=== PATIENT | male | born 1970 | race Caucasian/White ===

== ENCOUNTER 2019-10-27 01:03 | Inpatient (IN) | payer SELFPAY ==
[2019-10-27] VITALS (17 sets, daily range): BP systolic 92–132; BP diastolic 49–90; PULSE 57–68; RESP 18–27; TEMP 36.3–36.9; O2SAT 86–98; BMI 34.0
--- NOTE | 2019-10-27 01:29 | W.ED.ABDPA2 ---
Documented by User: TAMRA Miles 10/27/19 03:15 HPI - Abdominal Pain General: Chief Complaint: Abdominal Pain Stated Complaint: abd pain Time Seen by Provider: 10/27/19 01:13 History of Present Illness: HPI narrative: Patient is a 49-year-old male who comes to the ED with abdominal pain, nausea, vomiting, diarrhea and shortness of breath. Patient has a past medical history of hypertension. Patient says symptoms started about a week ago. He was having some shortness of breath and says he went to his PCP to get evaluated and they tested him for influenza and COVID and both were negative. Patient says he still has some shortness of breath and productive cough with white/clear sputum. He describes the abdominal pain as an aching pain that gets worse when he does any movement. The location of the abdominal pain is in the left lower quadrant. He rates the pain about an 8 out of 10 when he is moving but when he is just laying pain is very minimal. He said he has had severe nausea and vomiting over the past 24 hours. Diarrhea has been going on for almost a week. Denies any blood in the stool. Denies dysuria, hematuria, chest pain, or other upper respiratory symptoms. Associated Symptoms: Reports diarrhea, fever(s), nausea and vomiting; Denies chills, constipation, dysuria, hematochezia and hematuria Review of Systems Const: Reports: fever(s); Denies: chills or fatigue Eyes: Denies: change in vision or eye discomfort ENMT: Denies: throat pain, odynophagia, nasal discharge or nasal congestion Card: Denies: chest pain, palpitations, edema, swelling of feet/ankles, dyspnea on exertion or orthopnea Resp: Reports: dyspnea and productive cough (white and clear) GI: Reports: abdominal pain, nausea, vomiting and diarrhea; Denies: constipation or hematochezia : Denies: flank pain, difficulty urinating, dysuria or hematuria Musc: Denies: neck pain, back pain or extremity swelling Skin/Breast: Denies: rash or new lesions Neuro: Denies: headache(s), numbness in extremities or weakness in extremities PFS ED PFSH: Social History Smoking and tobacco status: never smoked Physical Exam Const: COMMON NORMALS: patient oriented x3 and alert GENERAL APPEARANCE: cooperative and ill appearing HENMT: COMMON NORMALS: normocephalic HEAD & SCALP: normocephalic MOUTH: Normal oral and palatal mucosa present THROAT: posterior oropharynx normal and uvula midline Eye: COMMON NORMALS: Equal, round and reactive pupils present PUPIL: Yes Equal, round and reactive pupils present Neck/C-Spine: COMMON NORMALS: supple GENERAL: Yes normal visual inspection Resp: COMMON NORMALS: normal respiratory effort, No retractions and No use of accessory muscles EFFORT & INSPECTION: No able to speak in complete sentences (Patient had to take breaks when speaking to catch his breath.), Yes labored and Yes Actively coughing AUSCULTATION: crackles Laterality: right and left and wheezes scattered wheezes Cardio: COMMON NORMALS: regular rate, regular rhythm, S1 normal heart sound present, S2 normal heart sound present, No gallops present (Cardio), No clicks present (Cardio), No murmurs present (Cardio) and Peripheral pulses 2+ throughout RATE: regular rate RHYTHM: regular rhythm HEART SOUNDS: S1 normal heart sound present and S2 normal heart sound present PERIPHERAL PULSES: Peripheral pulses 2+ throughout GI: COMMON NORMALS: Normal to inspection, nondistended, normoactive bowel sounds present, Soft to palpation and no masses PALPATION: Yes Soft to palpation and Yes Tenderness to palpation present (GI) Details: LLQ (mild tenderness) : COMMON NORMALS: Yes no CVA tenderness BLADDER/KIDNEY EXAM: Yes no CVA tenderness Back/Pelvis: COMMON NORMALS: no CVA tenderness Extremity: COMMON NORMALS: normal to inspection and no pedal edema Neuro: COMMON NORMALS: patient oriented x3 SENSORIUM/ORIENTATION: Yes alert GAIT: Yes Normal gait present Skin: COMMON NORMALS: no rashes or lesions noted GENERAL SKIN EXAM: no rashes or lesions noted and dry skin Course Vital Signs: Vital signs: Vital Signs Temperature 98.0 F 10/27/19 01:05 Pulse Rate 61 10/27/19 03:37 Respiratory Rate 18 10/27/19 04:58 Blood Pressure 115/68 10/27/19 04:58 Pulse Oximetry 91 10/27/19 04:58 MDM - Abdominal Pain MDM Narrative: Medical decision making narrative: I discussed patient's case with Dr. Vogel and he will be taking over patient care and admission of patient. Lab Data: Attestation: I reviewed the patient's lab results. Labs: Lab Results 10/27/19 10/27/19 10/27/19 Range/Units 01:26 01:26 02:20 WBC 11.8 H (4.0-10.0) 10^3/ uL RBC 5.06 (4.1-5.3) 10^6/u L Hgb 15.3 (11.7-16.6) g/dL Hct 43.4 (42.0-52.0) % MCV 85.8 (80-94) fL MCH 30.2 (28.0-34.0) pg MCHC 35.3 (30.0-36.0) g/dL RDW 12.6 (12.1-15.1) % Plt Count 213 (130-400) 10^3/c mm MPV 11.9 H (7.4-10.4) fL Neut % (Auto) 82.8 % Lymph % (Auto) 8.5 % Barton % (Auto) 7.3 % Eos % (Auto) 0.1 % Baso % (Auto) 0.3 % Neut # (Auto) 9.8 H (1.8-7.7) 10^3/u L Lymph # (Auto) 1.0 (0.8-4.8) 10^3/u L Barton # (Auto) 0.9 (0.2-0.9) 10^3/u L Eos # (Auto) 0.0 (0.0-0.8) 10^3/u L Baso # (Auto) 0.0 (0.0-0.1) 10^3/u L Nucleated RBC % (a uto) 0 % Nucleated RBCs # 0.0 /100WBC Sodium 120 L (136-145) mmol/L Potassium 2.9 L (3.5-5.1) mmol/L Chloride 87 L (98-107) mmol/L Carbon Dioxide 15 L (22-29) mmol/L Anion Gap 20.9 H (5-19) BUN 89 H* (6-20) mg/dL Creatinine 4.7 H (0.7-1.2) mg/dL GFR Calculation 13.4 L (90-130) mL/min Glucose 359 H (65-115) mg/dL Calculated Osmolal ity 265 L (285-295) mOsm/k g Calcium 8.8 (8.5-10.5) mg/dL Total Bilirubin 0.5 (0.15-1.2) mg/dL AST 202 H (0-40) U/L ALT 184 H (0-41) U/L Alkaline Phosphata se 37 L (40-130) IU/L Total Protein 6.2 L (6.6-8.7) g/dL Albumin 2.6 L (3.5-5.2) g/dL Globulin 3.6 (1.3-4.6) g/dL Lipase 41 (13-60) U/L Urine Color Yellow (Yellow) Urine Appearance Sl hazy (CLEAR) Urine pH 5 (5-7) Ur Specific Gravit y 1.020 (1.005-1.030) Urine Protein Neg (Negative) Urine Glucose (UA) 1+ (Normal) Urine Ketones Negative (Negative) Urine Blood 3+ H (Negative) Urine Nitrate Negative (Negative) Urine Bilirubin Neg (NEGATIVE) Urine Urobilinogen Norm (Negative) mg/dL Ur Leukocyte Meg ase Negative (Negative) Urine RBC 0-4 H (0-2) /hpf Urine WBC 5-10 H (0-5) /hpf Ur Squamous Epith Cells 0-4 H (0-5) Urine Bacteria 1+ H (NONE) Imaging Data ^: CXR: Attestation: I personally reviewed and interpreted this imaging study as follows: My impression: Left lobe pneumonia and infiltrates seen. Pending final radiology report. Discharge Plan Discharge Prescriptions: No Action lisinopril 10 mg Tablet 10 mg PO BID RF: 0 Coding Level of Care Code ED Metaphysician for [facility] Fwd Exam Comprehensive Documented by User: Frida Vogel MD 10/27/19 05:04 HPI - Abdominal Pain General: Chief Complaint: Abdominal Pain Stated Complaint: abd pain Time Seen by Provider: 10/27/19 01:13 PFSH ED PFSH: Social History Smoking and tobacco status: never smoked Course Vital Signs: Vital signs: Vital Signs Temperature 98.0 F 10/27/19 01:05 Pulse Rate 61 10/27/19 03:37 Respiratory Rate 18 10/27/19 04:58 Blood Pressure 115/68 10/27/19 04:58 Pulse Oximetry 91 10/27/19 04:58 MDM - Abdominal Pain MDM Narrative: Medical decision making narrative: Patient presents here with multilobar pneumonia along with hyponatremia and acute kidney injury. Patient given IV hydration here and started on IV antibiotics. Patient is requiring oxygen here and pneumonia is quite extensive on CT. I spoke to hospitalist and will admit. Patient has no signs of septic shock and blood pressures have been normal here. Lab Data: Labs: Lab Results 10/27/19 10/27/19 10/27/19 Range/Units 01:26 01:26 02:20 WBC 11.8 H (4.0-10.0) 10^3/ uL RBC 5.06 (4.1-5.3) 10^6/u L Hgb 15.3 (11.7-16.6) g/dL Hct 43.4 (42.0-52.0) % MCV 85.8 (80-94) fL MCH 30.2 (28.0-34.0) pg MCHC 35.3 (30.0-36.0) g/dL RDW 12.6 (12.1-15.1) % Plt Count 213 (130-400) 10^3/c mm MPV 11.9 H (7.4-10.4) fL Neut % (Auto) 82.8 % Lymph % (Auto) 8.5 % Barton % (Auto) 7.3 % Eos % (Auto) 0.1 % Baso % (Auto) 0.3 % Neut # (Auto) 9.8 H (1.8-7.7) 10^3/u L Lymph # (Auto) 1.0 (0.8-4.8) 10^3/u L Barton # (Auto) 0.9 (0.2-0.9) 10^3/u L Eos # (Auto) 0.0 (0.0-0.8) 10^3/u L Baso # (Auto) 0.0 (0.0-0.1) 10^3/u L Nucleated RBC % (a uto) 0 % Nucleated RBCs # 0.0 /100WBC Sodium 120 L (136-145) mmol/L Potassium 2.9 L (3.5-5.1) mmol/L Chloride 87 L (98-107) mmol/L Carbon Dioxide 15 L (22-29) mmol/L Anion Gap 20.9 H (5-19) BUN 89 H* (6-20) mg/dL Creatinine 4.7 H (0.7-1.2) mg/dL GFR Calculation 13.4 L (90-130) mL/min Glucose 359 H (65-115) mg/dL Calculated Osmolal ity 265 L (285-295) mOsm/k g Calcium 8.8 (8.5-10.5) mg/dL Total Bilirubin 0.5 (0.15-1.2) mg/dL AST 202 H (0-40) U/L ALT 184 H (0-41) U/L Alkaline Phosphata se 37 L (40-130) IU/L Total Protein 6.2 L (6.6-8.7) g/dL Albumin 2.6 L (3.5-5.2) g/dL Globulin 3.6 (1.3-4.6) g/dL Lipase 41 (13-60) U/L Urine Color Yellow (Yellow) Urine Appearance Sl hazy (CLEAR) Urine pH 5 (5-7) Ur Specific Gravit y 1.020 (1.005-1.030) Urine Protein Neg (Negative) Urine Glucose (UA) 1+ (Normal) Urine Ketones Negative (Negative) Urine Blood 3+ H (Negative) Urine Nitrate Negative (Negative) Urine Bilirubin Neg (NEGATIVE) Urine Urobilinogen Norm (Negative) mg/dL Ur Leukocyte Meg ase Negative (Negative) Urine RBC 0-4 H (0-2) /hpf Urine WBC 5-10 H (0-5) /hpf Ur Squamous Epith Cells 0-4 H (0-5) Urine Bacteria 1+ H (NONE) Imaging Data ^: CT Chest: Radiologist's impression: [address] [address] [address] Scan Report Signed Patient: Osman Muir Unit #: [id number] : 1970 [facility]#:[id number] Age/Sex: 49 / M ADM Date: 10/27/19 Loc: ER Room/Bed: Attending Dr: Ordering Provider/Ordering MD: Frida Vogel MD Date of Service: 10/27/19 Procedure(s): CT chest abd pel wo con Accession Number(s): [id number] Report Number: [id number] PROCEDURE INFORMATION: Exam: CT Chest Without Contrast Exam date and time: 10/27/2019 2:35 AM Age: 49 years old Clinical indication: Abdominal tenderness; Abdominal pain; Generalized; Cough and shortness of breath; Chest pain; Type not specified; Prior surgery; Surgery type: Stents; Additional info: Pneumonia TECHNIQUE: Imaging protocol: Computed tomography of the chest without contrast. Radiation optimization: All CT scans at this facility use at least one of these dose optimization techniques: automated exposure control; mA and/or kV adjustment per patient size (includes targeted exams where dose is matched to clinical indication); or iterative reconstruction. COMPARISON: No relevant prior studies available. RADIATION DOSE METRICS: Total DLP: 2598.83 mGy-cm FINDINGS: Lungs: There is extensive consolidation and confluent areas of geographic ground-glass opacity in the upper and lower lobes bilaterally. Pleural space: There is no pleural effusion or pneumothorax. Heart: There is mild cardiac enlargement. Coronary calcification and stents noted. There is no pericardial effusion. Aorta: There is mild aortic atherosclerotic disease. Lymph nodes: There is no mediastinal or hilar lymphadenopathy. Bones/joints: Bones are unremarkable. Soft tissues: The extrathoracic soft tissues are unremarkable. IMPRESSION: 1. Bilateral multilobar pneumonia. 2. Cardiac enlargement. PROCEDURE INFORMATION: Exam: CT Abdomen And Pelvis Without Contrast Exam date and time: 10/27/2019 2:35 AM Age: 49 years old Clinical indication: Abdominal tenderness; Abdominal pain; Generalized; Cough and shortness of breath; Chest pain; Type not specified; Prior surgery; Surgery type: Stents; Additional info: Pneumonia TECHNIQUE: Imaging protocol: Computed tomography of the abdomen and pelvis without contrast. Radiation optimization: All CT scans at this facility use at least one of these dose optimization techniques: automated exposure control; mA and/or kV adjustment per patient size (includes targeted exams where dose is matched to clinical indication); or iterative reconstruction. COMPARISON: No relevant prior studies available. RADIATION DOSE METRICS: Total DLP: 2598.83 mGy-cm FINDINGS: Liver: The liver is normal. Gallbladder and bile ducts: The gallbladder is normal. There is no biliary dilation. Pancreas: The pancreas is unremarkable. Spleen: The spleen is mildly enlarged. Adrenals: The adrenal glands are unremarkable. Kidneys and ureters: The kidneys are unremarkable. No hydronephrosis or stones. No ureteral dilation. Stomach and bowel: The stomach is decompressed, preventing meaningful evaluation of wall thickness. The small bowel is nondilated. There is no sign of inflammation. Colon is gas distended. The wall is thin. There is no sign of inflammation. Appendix: The appendix is normal. Intraperitoneal space: There is no free air or significant intraperitoneal free fluid. Vasculature: There is moderate aortic atherosclerotic disease. Lymph nodes: There is no lymphadenopathy in the retroperitoneum, mesentery, pelvis or inguinal regions. Bladder: The urinary bladder is unremarkable. Reproductive: The prostate and seminal vesicles are unremarkable. Bones/joints: There is moderate degenerative disease in the lower lumbar spine. The pelvis and hips are intact. Soft tissues: The abdominal wall is intact. CT/CT chest abd pel wo con IMPRESSION: 1. No acute findings. 2. Incidental findings above. Discharge Plan Discharge Prescriptions: No Action lisinopril 10 mg Tablet 10 mg PO BID RF: 0 Coding Level of Care Code ED Metaphysician for [facility] Fwd Exam Comprehensive
--- NOTE | 2019-10-27 01:37 | XR_ITS ---
WS: [id number] XR chest 1V portable [id number] REASON FOR EXAM: O2 Sat low FINDINGS: Alveolar infiltrate is seen in the right upper lung and in the left lower lung. No evidence to suggest tuberculosis on this study. The right hemidiaphragm is elevated. The heart is enlarged. The hilum's apices are normal. XR/XR chest 1V portable [id number] IMPRESSION: Alveolar infiltrates in the right upper lung and left lower lung Cardiomegaly There is elevation of the right hemidiaphragm With the cross infiltrates consideration and rule out tuberculosis a skin test is recommended.
[2019-10-27 01:40] LABS: Basophils % 0.3 %; Eosinophils % 0.1 %; Hematocrit 43.4 % (42.0-52.0); Hemoglobin 15.3 g/dL (11.7-16.6); Lymphocytes % 8.5 %; Mean Corpuscular HGB Conc 35.3 g/dL (30.0-36.0); Mean Corpuscular Hemoglobin 30.2 pg (28.0-34.0); Mean Corpuscular Volume 85.8 fL (80-94); Mean Platelet Volume 11.9 fL (7.4-10.4); Monocytes # 0.9 10^3/uL (0.2-0.9); Monocytes % 7.3 %; Neutrophils # 9.8 10^3/uL (1.8-7.7); Neutrophils % 82.8 %; Nucleated Red Blood Cells % 0 %; Platelet Count 213 10^3/cmm (130-400); Red Blood Count 5.06 10^6/uL (4.1-5.3); Red Cell Distribution Width 12.6 % (12.1-15.1); White Blood Count 11.8 10^3/uL (4.0-10.0)
[2019-10-27] MEDS: sodium chloride 0.9% 1,000 ML 999 ML IV ×2 (01:43→03:11)
[2019-10-27] MEDS: ondansetron 2 mg/ML SDV 2 mL 4 MG IVP (01:44)
[2019-10-27 01:52] LABS: Alanine Aminotransferase 184 U/L (0-41); Albumin Level 2.6 g/dL (3.5-5.2); Alkaline Phosphatase 37 IU/L (40-130); Anion Gap 20.9 (5-19); Aspartate Amino Transferase 202 U/L (0-40); Calcium 8.8 mg/dL (8.5-10.5); Carbon Dioxide 15 mmol/L (22-29); Chloride 87 mmol/L (98-107); Globulin 3.6 g/dL (1.3-4.6); Glomerular Filtration Rate 13.4 mL/min (90-130); Glucose 359 mg/dL (65-115); Lipase 41 U/L (13-60); Osmolality Calculated 265 mOsm/kg (285-295); Sodium 120 mmol/L (136-145); Total Bilirubin 0.5 mg/dL (0.15-1.2); Total Protein 6.2 g/dL (6.6-8.7)
[2019-10-27 02:00] LABS: Blood Urea Nitrogen 89 mg/dL (6-20); Potassium 2.9 mmol/L (3.5-5.1)
--- NOTE | 2019-10-27 02:34 | CTR_ITS ---
PROCEDURE INFORMATION: Exam: CT Chest Without Contrast Exam date and time: 10/27/2019 2:35 AM Age: 49 years old Clinical indication: Abdominal tenderness; Abdominal pain; Generalized; Cough and shortness of breath; Chest pain; Type not specified; Prior surgery; Surgery type: Stents; Additional info: Pneumonia TECHNIQUE: Imaging protocol: Computed tomography of the chest without contrast. Radiation optimization: All CT scans at this facility use at least one of these dose optimization techniques: automated exposure control; mA and/or kV adjustment per patient size (includes targeted exams where dose is matched to clinical indication); or iterative reconstruction. COMPARISON: No relevant prior studies available. RADIATION DOSE METRICS: Total DLP: 2598.83 mGy-cm FINDINGS: Lungs: There is extensive consolidation and confluent areas of geographic ground-glass opacity in the upper and lower lobes bilaterally. Pleural space: There is no pleural effusion or pneumothorax. Heart: There is mild cardiac enlargement. Coronary calcification and stents noted. There is no pericardial effusion. Aorta: There is mild aortic atherosclerotic disease. Lymph nodes: There is no mediastinal or hilar lymphadenopathy. Bones/joints: Bones are unremarkable. Soft tissues: The extrathoracic soft tissues are unremarkable. IMPRESSION: 1. Bilateral multilobar pneumonia. 2. Cardiac enlargement. PROCEDURE INFORMATION: Exam: CT Abdomen And Pelvis Without Contrast Exam date and time: 10/27/2019 2:35 AM Age: 49 years old Clinical indication: Abdominal tenderness; Abdominal pain; Generalized; Cough and shortness of breath; Chest pain; Type not specified; Prior surgery; Surgery type: Stents; Additional info: Pneumonia TECHNIQUE: Imaging protocol: Computed tomography of the abdomen and pelvis without contrast. Radiation optimization: All CT scans at this facility use at least one of these dose optimization techniques: automated exposure control; mA and/or kV adjustment per patient size (includes targeted exams where dose is matched to clinical indication); or iterative reconstruction. COMPARISON: No relevant prior studies available. RADIATION DOSE METRICS: Total DLP: 2598.83 mGy-cm FINDINGS: Liver: The liver is normal. Gallbladder and bile ducts: The gallbladder is normal. There is no biliary dilation. Pancreas: The pancreas is unremarkable. Spleen: The spleen is mildly enlarged. Adrenals: The adrenal glands are unremarkable. Kidneys and ureters: The kidneys are unremarkable. No hydronephrosis or stones. No ureteral dilation. Stomach and bowel: The stomach is decompressed, preventing meaningful evaluation of wall thickness. The small bowel is nondilated. There is no sign of inflammation. Colon is gas distended. The wall is thin. There is no sign of inflammation. Appendix: The appendix is normal. Intraperitoneal space: There is no free air or significant intraperitoneal free fluid. Vasculature: There is moderate aortic atherosclerotic disease. Lymph nodes: There is no lymphadenopathy in the retroperitoneum, mesentery, pelvis or inguinal regions. Bladder: The urinary bladder is unremarkable. Reproductive: The prostate and seminal vesicles are unremarkable. Bones/joints: There is moderate degenerative disease in the lower lumbar spine. The pelvis and hips are intact. Soft tissues: The abdominal wall is intact. CT/CT chest abd pel wo con IMPRESSION: 1. No acute findings. 2. Incidental findings above. Radiation Dose CTDIVOL = (mGy): DLP = 2598.83~2598.83 (mGy-cm)
[2019-10-27] MEDS: azithromycin 500 MG in sodium chloride 0.9% 250 ML 250 MG IV (03:09)
[2019-10-27] MEDS: cefTRIAXone 1,000 MG in sodium chloride 0.9% (plus) 50 ML 100 MG IV (03:09)
[2019-10-27] MEDS: potassium chloride premix 40 MEQ/100 ML PREMIX 25 MEQ IV (03:39)
[2019-10-27 03:41] LABS: Urine Appearance SL Hazy (CLEAR); Urine Color Yellow (Yellow); pH Urine 5 (5-7)
[2019-10-27 03:42] LABS: Bacteria Urine 1+; Bilirubin Urine Neg (NEGATIVE); Blood Urine 3+ (Negative); Glucose Urine UA 1+ (Normal); Ketones Urine Negative (Negative); Leukocyte Esterase Urine Negative (Negative); Nitrate Urine Negative (Negative); Protein Urine Neg (Negative); RBC Urine 0-4 /hpf (0-2); Squamous Epithelial Cell Urine 0-4 (0-5); Urobilinogen Urine Norm (Negative)
--- NOTE | 2019-10-27 05:16 | PM.HP ---
Providers/Chief Complaint Primary Care Provider: Shae May DO Chief Complaint: abd pain History of Present Illness Osman Muir is a 49 year old male who carries history of established coronary disease (PCI x3), prediabetic, hypertensive came in with chief complaint of not feeling well. Patient is stating that for last 2 to 3 weeks he has been feeling very weak and lethargic, he was trying to avoid coming to the hospital but because of his worsening shortness of breath orthopnea and PND he decided to come to [facility] ER. He was seen at [place], patient is stating that he did not get any medical services there but was tested for COVID which was - negative 3 days ago. He has been having diarrhea for last 3 to 4 weeks, just diarrhea associated with nausea and vomiting, he has not been able to eat in last 2 to 3 days, he is experiencing more hoarseness of voice, when he took his temperature at home it was 100.4, he has been waking up drenched in his sweat in the morning, he is not sure about unintentional weight loss. He has quit smoking about 1 month ago. He denies history of CHF, alcohol intake or hepatitis. He is denying sick contacts, recent travel. Diagnostics in the ER revealed normal hemodynamics, he has been afebrile, saturating well on room air, COVID testing ordered Hyponatremia 120, hypokalemia 2.9, acute kidney injury creatinine 4.7 Abnormal transaminases, Low albumin Pyuria without UTI symptoms CT chest abdomen pelvis revealed bilateral infiltrates with groundglass opacities and cardiomegaly no lymphadenopathy, liver seems normal Review of Systems Const: Reports: fever(s), chills, body aches, change in appetite, fatigue, malaise, night sweats, diaphoresis and daytime sleepiness; Denies: change in weight Eyes: Denies: change in vision ENMT: Reports: throat pain Card: Reports: lightheadedness, dyspnea on exertion and orthopnea; Denies: chest pain, swelling of feet/ankles or pre-syncope Resp: Reports: dyspnea GI: Reports: abdominal pain, nausea, vomiting and diarrhea; Denies: constipation : Denies: flank pain or difficulty urinating Musc: Denies: neck pain Skin/Breast: Denies: rash Neuro: Denies: headache(s) Psych: Denies: anxiety Endo: Denies: polyuria Dharmesh/Lymph: Denies: easy bruising All/Imm: Denies: urticaria Medications/Allergies Home Medications Medication Instructions Recorded Confirmed Last Taken Type lisinopril 10 mg PO BID 10/27/19 10/27/19 10/26/19 History Allergies Allergy/AdvReac Type Severity Reaction Status Date / Time No Known Allergies Allergy Verified 10/27/19 01:12 PFSH Acute PFSH: Medical History (Updated 10/27/19 @ 06:29 by Dean Calderon MD) Abnormal coronary angiogram Coronary artery disease PCI x3 Hypertension Prediabetes Surgical History (Updated 10/27/19 @ 06:19 by Dean Calderon MD) Hx of cardiac cath Family History (Updated 10/27/19 @ 06:19 by Dean Calderon MD) Other Hypertension Social History (Updated 10/27/19 @ 06:20 by Dean Calderon MD) Smoking and tobacco status: former smoker Quit status (tobacco): has quit using tobacco Former quit date comment: Quit smoking 1 month ago because of shortness of breath and orthopnea Alcohol intake: never Substance/Drug Use: never Lives independently: Yes Housing: House 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 Vitals/I&O/Wt Last Vital Signs Temp 98.0 F 10/27/19 01:05 Pulse 61 10/27/19 03:37 Resp 18 10/27/19 04:58 BP 115/68 10/27/19 04:58 Pulse Ox 91 10/27/19 04:58 Weight last 48 hrs Weight 120.202 kg Physical Exam Narrative: EXAM NARRATIVE: Head to toe examination Patient is in semi-duenas position Awake alert oriented x3, GCS 15 Has hoarseness of voice No active respiratory distress Afebrile S1, S2 no tachycardia or signs of heart failure Hyperemic bilateral conjunctivo- Abdomen distended, bloated, nontender, bowel sounds present Lungs are clear to auscultation without any adventitious sounds however bilateral breath sounds are diminished Skin does not show any skin ischemia gangrene ulcer Neurologically nonfocal exam He seems to be a bit drowsy but able to state above-mentioned HPI No lower extremity edema No asterixis Data : 10/27/19 01:26 10/27/19 01:26 Micro: Microbiology 10/27/19 02:44 Blood Culture - Preliminary Blood SPECIMEN COLLECTED 10/27/19 02:44 Blood Culture - Preliminary Blood SPECIMEN COLLECTED A&P Assessment and plan (1) Community acquired pneumonia: Status: Acute (2) New onset of congestive heart failure: Status: Acute (3) Hypertension: Status: Inactive (4) Hyponatremia: Status: Acute (5) Hypokalemia: Status: Acute (6) FADY (acute kidney injury): Status: Acute (7) Metabolic acidosis: Status: Acute Additional A&P Information New onset CHF High BNP with symptoms of orthopnea and PND Primary edema on x-ray Echo in the morning Check TSH He will be na?ve to Lasix, would use low-dose Community-acquired pneumonia Check urine anti- COVID to be ruled out Continue ceftriaxone and azithromycin Patient is stating that at [place] his COVID was - negative 3 days ago Hyponatremia We will check serum and urine osmolarity, urine electrolytes Check TSH, uric acid level He is not on any antidepressants Etiology seems to be dehydration with underlying CHF Hypokalemia: Repleted Abnormal transaminases due to congestive heart failure Get hepatitis panel Drug screen ordered This is most likely due to CHF exacerbation Metabolic acidosis due to uremia acute kidney injury most likely prerenal Anticipating provement with diuresis No signs of hydronephrosis CT abdomen DVT prophylaxis: Heparin Cardiac diet Full code Attestations Medical Necessity Statement*: Anticipating stay in the hospital course more than 2 midnights currently need management for new onset CHF Time Spent in Patient Care: 60 Coding Level of Care Code Acute Network Liaison for [facility] Fwd Diagnoses Community acquired pneumonia J18.9 New onset of congestive heart failure I50.9 Hypertension I10 Hyponatremia E87.1 Hypokalemia E87.6 FADY (acute kidney injury) N17.9 Metabolic acidosis E87.2
--- NOTE | 2019-10-27 06:12 | USCV_ITS ---
Osman Muir Age: 49 Gender: M : 1970 Exam Date: 10/27/2019 10:44 Ordering Phys: Dean Calderon MD Technologist: Caitlin Vega [place] [facility] [place]ication: LV FUNCTION BP: / HR: 55 Rhythm: Sinus Technical Quality: Adequate MEASUREMENTS (Male / Female) Normal Values 2D ECHO LV Diastolic Diameter PLAX 6.5 cm 4.2 - 5.9 / 3.9 - 5.3 cm LV Systolic Diameter PLAX 5.5 cm IVS Diastolic Thickness 1.5 cm 0.6 - 1.0 / 0.6 - 0.9 cm IVS Systolic Thickness 1.8 cm LVPW Diastolic Thickness 1.4 cm 0.6 - 1.0 / 0.6 - 0.9 cm LVPW Systolic Thickness 1.6 cm LVOT Diameter 2.1 cm LV Ejection Fraction 2D Teich 33.2 % LA Diameter 3.5 cm LA Width 3.0 cm LA Height 4.5 cm RA Width 3.5 cm RA Height 4.6 cm Aorta at Sinotubular Diameter 3.6 cm M-MODE LV Diastolic Diameter MM 6.2 cm 4.2 - 5.9 / 3.9 - 5.3 cm LV Systolic Diameter MM 5.3 cm LV Ejection Fraction MM Teich 31.5 % IVS Diastolic Thickness MM 1.1 cm 0.6 - 1.0 / 0.6 - 0.9 cm IVS Systolic Thickness MM 1.1 cm LVPW Diastolic Thickness MM 1.3 cm 0.6 - 1.0 / 0.6 - 0.9 cm LVPW Systolic Thickness MM 1.3 cm RV Diastolic Diameter MM 1.4 cm Aortic Annulus Diameter 3.9 cm LA Ao Ratio MM 0.9 MV E Point Septal Separation 1.5 cm DOPPLER AV Peak Velocity 155.0 cm/s LVOT Peak Velocity 59.0 cm/s AV Area Cont Eq vti 1.1 cm squared AV Area Cont Eq pk 1.3 cm squared MV Area PHT 3.7 cm squared Mitral E to A Ratio 2.3 MV E' Velocity 7.0 cm/s Mitral E to MV E' Ratio 11.9 Mitral E to LV E' Lateral Ratio 12.1 Mitral E to LV E' Septal Ratio 11.7 TV Peak E Velocity 67.0 cm/s PV Peak Velocity 56.0 cm/s RV Acceleration Time 0.1 s RV Ejection Time 0.3 s RV AcT/ET 0.4 FINDINGS Left Ventricle Moderately increased left ventricular cavity size. Severely decreased left ventricular systolic function. Global left ventricular hypokinesis. Left ventricular ejection fraction is estimated at 35 %. Grade III/IV diastolic dysfunction (restrictive filling pattern), severely elevated filling pressures. Right Ventricle The right ventricle is normal in size and function. RVSP could not be calculated due to incomplete tricuspid regurgitation velocity profile. Right Atrium The right atrium is normal in size. Left Atrium The left atrium is normal in size. Mitral Valve Structurally normal mitral valve without significant stenosis or prolapse. There is no mitral regurgitation. Aortic Valve Structurally normal aortic valve without significant sclerosis or stenosis. There is no aortic regurgitation. Tricuspid Valve Structurally normal tricuspid valve without significant stenosis or regurgitation. Pulmonic Valve Structurally normal pulmonic valve without significant stenosis. There is no pulmonic regurgitation. Pericardium Normal pericardium without effusion. Aorta Normal ascending aorta dimension. CONCLUSIONS 1-Moderately increased left ventricular cavity size. Severely decreased left ventricular systolic function. Global left ventricular hypokinesis. Left ventricular ejection fraction is estimated at 35 %. Grade III/IV diastolic dysfunction (restrictive filling pattern), severely elevated filling pressures. 2-There is no pericardial effusion. 3-The right ventricle is normal in size and function. RVSP could not be calculated due to incomplete tricuspid regurgitation velocity profile. 4-There are no prior echocardiogram studies to compare. Dean Leary MD (Electronically Signed) Final Date: 27 October 2019 19:13 S
[2019-10-27 06:19] LABS: Cholesterol 118 mg/dL (0-200); HDL Cholesterol 10 mg/dL (60-100); LDL Cholesterol Calculated 57 mg/dL (50-129); NT Pro B Type Natriuretic Pept 12089 pg/mL (0-125); Thyroid Stimulating Hormone 1.23 uIU/mL (0.27-4.20); Triglycerides 256 mg/dL (0-150)
[2019-10-27 06:30] LABS: Amphetamines Screen Urine Negative (Negative); Barbiturates Screen Urine Negative (Negative); Benzodiazepines Screen Urine Negative (Negative); Cocaine Screen Urine Negative (Negative); Opiate Screen Urine Negative (Negative); PCP Screen Urine Negative (Negative); THC Screen Urine Negative (Negative)
[2019-10-27] MEDS: heparin 5,000 unit/mL INJ 1 mL 5000 UNIT SUBCUT ×3 (06:38→22:46)
[2019-10-27 06:41] LABS: Uric Acid 10.8 mg/dL (3.4-7.0)
[2019-10-27 07:45] LABS: Hepatitis B Surface Antigen Non-Reactive (Nonreactive); Hepatitis C Virus Antibody Non-Reactive (Nonreactive)
[2019-10-27 07:47] LABS: Hepatitis A Antibody IgM Non-Reactive (Nonreactive)
[2019-10-27 08:25] LABS: Creatinine Urine, Random 167 mg/dL (39-259); Microalbumin Random Urine 10 ug/dL (0-20)
[2019-10-27 08:26] LABS: Microalbum Creatinine Ratio Ur 60 mg/dL (0-20)
[2019-10-27 09:25] LABS: Potassium, Radom Urine 13 mmol/L
[2019-10-27 09:30] LABS: Urine Random Chloride < 10 mmol/L; Urine Random Sodium 18 mmol/L
[2019-10-27 11:17] LABS: Troponin(5th) Baseline 104 ng/L (0-15)
[2019-10-27 11:45] LABS: Alanine Aminotransferase 171 U/L (0-41); Albumin Level 2.7 g/dL (3.5-5.2); Alkaline Phosphatase 36 IU/L (40-130); Anion Gap 20.1 (5-19); Aspartate Amino Transferase 143 U/L (0-40); Calcium 8.4 mg/dL (8.5-10.5); Carbon Dioxide 17 mmol/L (22-29); Chloride 92 mmol/L (98-107); Globulin 3.1 g/dL (1.3-4.6); Glomerular Filtration Rate 15.3 mL/min (90-130); Glucose 297 mg/dL (65-115); Osmolality Calculated 273 mOsm/kg (285-295); Potassium 3.1 mmol/L (3.5-5.1); Sodium 126 mmol/L (136-145); Total Bilirubin 0.3 mg/dL (0.15-1.2); Total Protein 5.8 g/dL (6.6-8.7)
[2019-10-27 12:06] LABS: Blood Urea Nitrogen 83 mg/dL (6-20)
--- NOTE | 2019-10-27 12:10 | PC.NURSE ---
PT RESTING IN BED. COGNITION IS SLOW, SPEECH SLIGHTLY SLURRED. LOOKS LIKE HE DOESN'T FEEL WELL, YELLOW TINT TO SKIN NOTED. STATES HAS BEEN FEELING BAD FOR SEVERAL WEEKS, HAD NEGATIVE COVID ON 10/23/[address] YIN. LABS DRAWN BY THIS NURSE MULTIPLE TIMES TODAY. ENCOURAGED TO WEAR OXYGEN D/T LOW SATS 2L/NC
--- NOTE | 2019-10-27 12:12 | ECG_ITS ---
Measurements Intervals [place] Rate: 55 P: LA: 0 QRS: -71 QRSD: 162 T: 120 QT: 350 QTc: 336 SINUS BRADYCARDIA WITH FREQUENT PVC'S INTRAVENTRICULAR CONDUCTION DELAY [130+ ms QRS DURATION] LATERAL MYOCARDIAL INFARCTION, OF INDETERMINATE AGE INFERIOR MYOCARDIAL INFARCTION,PROBABLY OLD No previous ECG available for comparison Electronically Signed On 10-28-2019 8:11:11 CDT by Albertina Balderrama M.D. [id number]
--- NOTE | 2019-10-27 12:32 | P.CONIM_ITS ---
Providers/Reason For Consult Consulting Physican/Specialty*: Nephrology Reason for Consult*: Eval for FADY Attending Physician: Navi Knight Primary Care Provider: Shae May DO History of Present Illness History of Present Illness Osman Muir is a 49 year old male who presented with weakness, diarrhea, SOB. He was found to have multilobar infiltrates on his CXR. He has hyponatremia and a high creatinine of 4.7. After some fluid boluses his creatinine has come down to 4.2 and sodium increased from 120 to 126. His urine legionella antigen screen is presumptive positive . [place] has been [place] in the wild for a few days, came home and felt unwell. 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 No edema and no other volume assoc Sx at this time. Passing urine without HOSKINS. No recent exposure to nephrotoxic substances. Hemodynamics stable since admission Review of Systems Const: Reports: fever(s), chills, body aches, change in appetite, fatigue, malaise, night sweats, diaphoresis and daytime sleepiness; Denies: change in weight Eyes: Denies: change in vision or eye discomfort ENMT: Reports: throat pain; Denies: odynophagia, nasal discharge or nasal congestion Card: Reports: lightheadedness, dyspnea on exertion and orthopnea; Denies: chest pain, palpitations, edema, swelling of feet/ankles or pre-syncope Resp: Reports: dyspnea and productive cough (white and clear) GI: Reports: abdominal pain, nausea, vomiting and diarrhea; Denies: constipation or hematochezia : Denies: flank pain, difficulty urinating, dysuria or hematuria Musc: Denies: neck pain, back pain or extremity swelling Skin/Breast: Denies: rash or new lesions Neuro: Denies: headache(s), numbness in extremities or weakness in extremities Psych: Denies: anxiety Endo: Denies: polyuria Dharmesh/Lymph: Denies: easy bruising All/Imm: Denies: urticaria Meds/Allergies Home Medications and Allergies Home Medications Medication Instructions Recorded Confirmed Last Taken Type lisinopril 10 mg PO BID 10/27/19 10/27/19 10/26/19 History Allergies Allergy/AdvReac Type Severity Reaction Status Date / Time No Known Allergies Allergy Verified 10/27/19 01:12 Current Medications Current Medications Generic Name Dose Route Start Last Admin Trade Name Natalie PRN Reason Stop Dose Admin Furosemide 20 mg 10/27/19 08:00 10/27/19 08:45 Lasix PO Not Given DAILY@0800 EDELMIRA Heparin Sodium (Beef Lung) 5,000 unit 10/27/19 06:30 10/27/19 06:38 Heparin SUBCUT 5,000 unit Q8H EDELMIRA Administration PFSH Acute PFSH: Medical History (Updated 10/27/19 @ 06:29 by Dean Calderon MD) Abnormal coronary angiogram Coronary artery disease PCI x3 Hypertension Prediabetes Surgical History (Updated 10/27/19 @ 06:19 by Dean Calderon MD) Hx of cardiac cath Family History (Updated 10/27/19 @ 06:19 by Dean Calderon MD) Other Hypertension Social History (Updated 10/27/19 @ 06:20 by Dean Calderon MD) Smoking and tobacco status: former smoker Quit status (tobacco): has quit using tobacco Former quit date comment: Quit smoking 1 month ago because of shortness of breath and orthopnea Alcohol intake: never Substance/Drug Use: never Lives independently: Yes Housing: House 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 Vitals/I&O/Wt Last Vital Signs Temp 97.8 F 10/27/19 06:20 Pulse 58 L 10/27/19 06:20 Resp 19 H 10/27/19 06:20 BP 123/67 10/27/19 06:20 Pulse Ox 90 10/27/19 06:20 Weight last 48 hrs Weight 120.202 kg Physical Exam HENMT: COMMON NORMALS: normocephalic and atraumatic HEAD & SCALP: normocephalic and atraumatic Eye: COMMON NORMALS: Equal, round and reactive pupils present and EOMs intact bilaterally PUPIL: Yes Equal, round and reactive pupils present Neck/C-Spine: COMMON NORMALS: no JVD Chest: COMMONS NORMALS: normal inspection of the chest Resp: AUSCULTATION: crackles and rales Cardio: COMMON NORMALS: no JVD, regular rate, regular rhythm and Peripheral pulses 2+ throughout RATE: regular rate RHYTHM: regular rhythm PERIPHERAL PULSES: Peripheral pulses 2+ throughout Extremity: COMMON NORMALS: normal to inspection Data Micro: Micro: Microbiology 10/27/19 02:20 Legionella Urinary Antigen - Final Urine,Clean Catch Bacterial Antigens - Final 10/27/19 02:44 Blood Culture - Pr eliminary Blood SPECIMEN [facility] 10/27/19 02:44 Blood Culture - Pr eliminary Blood SPECIMEN [facility] A&P Additional A&P Information 1. FADY - creatinine has come down with the administration of ivf suggesting pre-renal picture - will send urine studies, of note does have heme positivity, but few rbcs, will check CPK - No further imaging is needed - given heart failure will defer diuretics and ivf at this time - avoid the usuals - am labs - no indication for dialysis 2. Diarrhea, multilobar pneumonia, hyponatremia - urine positive for legionella Ag presumptive positive - mgmt per Dr Knight; on Levaquin - [facility] to investigate further 3. Heart Failure - per Dr Leary - in setting of acute Legionella infection this is likely to be cardiomyopathy - may need to defer further ischemic w/u until renal function has recovered - intermittent diuretics - formal echo pending 4. HypoNa - corrected sodium is 124 on first draw and now 129 on second draw - I have liberalized his water intake - recheck lytes later this evening at 5pm - goal correction of 8-10 tomorrow, ie corrected will be 132 at 1am - thanks for consult - interview and exam performed via telemed with the aid of the bedside RN Michael vargas MD [facility], Telemed [phone] Coding Level of Care Code Acute Sourcing Analyst for Kaelyn Guevara
[2019-10-27 12:49] LABS: Creatine Phosphokinase 3621 U/L (39-308)
[2019-10-27 13:13] LABS: ABG PCO2 30.9 mmHg (35-45); ABG PH Result 7.36 (7.35-7.45); Arterial Blood Gas Hematocrit 45.3 % (42-52); Blood Gas Allen Test Pos; Blood Gas Sample Site Brachial, left; Blood Gas Sample Type Arterial; HCO3 ABG 17.2 mmol/L (22-26); Oxygen Device NC; PO2 ABG 80.3 mmHg (80.0-100.0)
[2019-10-27 13:52] LABS: Troponin 5 2HR 102.7 ng/L (0-15); Troponin 5 2HR Delta -1.3 ABS# (0-10)
[2019-10-27 15:12] LABS: Magnesium 2.8 mg/dL (1.7-2.3)
[2019-10-27 15:20] LABS: C Reactive Protein 154.9 mg/L (0.0-4.9)
[2019-10-27] MEDS: levofloxacin-dextrose 5 % 750 MG/150 ML PREMIX 100 MG IV (15:26)
--- NOTE | 2019-10-27 16:12 | ECG_ITS ---
Measurements Intervals [place] Rate: 65 P: 10 ND: 193 QRS: -46 QRSD: 149 T: 106 QT: 464 QTc: 486 SINUS RHYTHM WITH FREQUENT VENTRICULAR PREMATURE COMPLEXES INTRAVENTRICULAR CONDUCTION DELAY [130+ ms QRS DURATION] LATERAL MYOCARDIAL INFARCTION [40+ ms Q WAVE AND/OR ST/T ABNORMALITY IN I/aVL/V5/V6], PROBABLY RECENT No previous ECG available for comparison Electronically Signed On 10-28-2019 8:12:00 CDT by Albertina Balderrama M.D. [email or web address]
--- NOTE | 2019-10-27 17:07 | PC.NURSE ---
Lactic drawn and taken to lab.
[2019-10-27] MEDS: pantoprazole DR 40 mg Tablet PO (17:38)
[2019-10-27 17:47] LABS: Lactic Sepsis W/Reflex 1.2 mmol/L (0.5-2.2)
[2019-10-27 18:31] LABS: Troponin 5 6HR Delta 0.1 ng/L (0-12)
[2019-10-27 18:32] LABS: Anion Gap 19.1 (5-19); Carbon Dioxide 18 mmol/L (22-29); Chloride 91 mmol/L (98-107); Glomerular Filtration Rate 17.2 mL/min (90-130); Glucose 288 mg/dL (65-115); Osmolality Calculated 271 mOsm/kg (285-295); Potassium 3.1 mmol/L (3.5-5.1); Sodium 125 mmol/L (136-145)
[2019-10-27 18:33] LABS: Troponin 5 6HR 104.1 ng/L (0-15)
[2019-10-27 19:46] LABS: Blood Urea Nitrogen 84 mg/dL (6-20)
--- NOTE | 2019-10-27 20:29 | PM.PN ---
Subjective Subjective: Interval history: Doing a little bit better. No chest pain. Breathing comfortable with nasal cannula. Having some nonproductive cough. Vitals/I&O/Wt Last Vital Signs Temp 97.4 F L 10/27/19 18:00 Pulse 67 10/27/19 18:00 Resp 21 H 10/27/19 18:00 BP 100/51 10/27/19 18:00 Pulse Ox 98 10/27/19 18:00 10/27/19 10/27/19 10/27/19 06:59 14:59 22:59 Intake Total 480 / 480 Output Total 600 / 600 750 / 1350 Balance -120 / -120 -750 / -870 Weight last 48 hrs Weight 120.202 kg Physical Exam Const: COMMON NORMALS: no acute distress and patient oriented x3 OTHER: Generally somewhat weak, but lucid. HENMT: COMMON NORMALS: oropharynx normal Neck/C-Spine: COMMON NORMALS: no JVD Resp: COMMON NORMALS: normal respiratory effort AUSCULTATION: wheezes and diminished lung sounds Cardio: COMMON NORMALS: no JVD, regular rhythm, S1 normal heart sound present, S2 normal heart sound present and No murmurs present (Cardio) RHYTHM: regular rhythm HEART SOUNDS: S1 normal heart sound present and S2 normal heart sound present GI: COMMON NORMALS: Normal to inspection, nondistended, normoactive bowel sounds present, Soft to palpation and non-tender PALPATION: Yes Soft to palpation Extremity: COMMON NORMALS: no joint enlargement and no pedal edema Neuro: COMMON NORMALS: patient oriented x3 and moves all extremities Skin: COMMON NORMALS: no rashes or lesions noted GENERAL SKIN EXAM: no rashes or lesions noted Data : 10/27/19 01:26 10/27/19 18:00 Micro: Microbiology 10/27/19 02:20 Legionella Urinary Antigen - Final Urine,Clean Catch Bacterial Antigens - Final 10/27/19 02:44 Blood Culture - Preliminary Blood SPECIMEN COLLECTED 10/27/19 02:44 Blood Culture - Preliminary Blood SPECIMEN COLLECTED A&P Assessment and plan (1) Community acquired pneumonia: Severe sepsis due to severe pneumonia. Leukocytosis. Tachypnea. Acute kidney injury. Troponin abnormality and demand ischemia. 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 Antibiotics changed to Levaquin, azithromycin. Requested infection control notify about the condition. Does not have acidemia on ABG, however, CRP is elevated at 154, so started on steroids, methylprednisolone 60 mg every 12 hours. Continue monitoring and oxygenation in ICU. Status: Acute (2) New onset of congestive heart failure: Concern for possible ischemic etiology, states sometime ago, beginning of the month, had an episode of chest pain for which did not seek any medical attention. He has history of coronary disease. Troponin is somewhat elevated, although this may be secondary to demand ischemia with pneumonia, hypoxia, and acute kidney injury. At the same time may benefit from additional evaluation for ischemic causes given other risk factors, once respiratory condition is little bit more stable. He appears was dehydrated on presentation, has received some fluids, for now hold off fluid or diuretic. Renal function appears to have responded somewhat to fluid challenge. Appreciate additional cardiology input tomorrow regarding this new condition. Status: Acute (3) Hypertension: Blood pressures were low this morning, but with improvement. Status: Inactive (4) Hyponatremia: Improving. Status: Acute (5) Hypokalemia: Replaced. Status: Acute (6) FADY (acute kidney injury): Appreciate nephrology recommendations. Does appear to have responded somewhat to fluid challenge. This appears multifactorial. Patient reports taking 4 tablets of ibuprofen in the morning and probably the same amount in the evening, having done that for a long time due to chronic pain. At the same time he also has this with hypotension, and likely had dehydration with diarrhea, vomiting secondary to legionnaires disease. Continue to monitor renal function, KASSIDY, electrolytes. Avoid nephrotoxins. Status: Acute (7) Metabolic acidosis: Status: Acute Additional A&P Information Abnormal transaminases: Possibly secondary to CHF, sepsis, dehydration, hypoperfusion. This is now improving with treatment as above. Acute hepatitis panel nonreactive. Drug screen unremarkable. Metabolic acidosis due to uremia Attestations Medical Necessity Statement*: Continue admission for assessment of management of severe pneumonia, legionnaires disease, with associated acute kidney injury, hyponatremia, electrolyte normalities. New onset CHF, possibly ischemic cardiomyopathy. Critical Care Time: In addition to noncritical issues 45 minutes critical care time spent on assessment of management of severe pneumonia, sepsis, with end organ injury, assessment and management of antibiotics, discussion with the patient and consultants. Coding Level of Care Code Acute Mirror Inspector for Kaelyn Guevara Diagnoses Community acquired pneumonia J18.9 New onset of congestive heart failure I50.9 Hypertension I10 Hyponatremia E87.1 Hypokalemia E87.6 FADY (acute kidney injury) N17.9 Metabolic acidosis E87.2
--- NOTE | 2019-10-27 21:19 | PC.NURSE ---
critical lab result lab called with critical result of BUN of 84. notified of critical result. no new orders at this time. upon entering room patient is resting in bed. patient stated that he was feeling very hot. temperature checked and 98.2. fan was brought into room for patient comfort. patient refusing to wear oxygen at this time. oxygen saturation maintaining above 92%. patient denies any pain at this time.
--- NOTE | 2019-10-27 23:14 | PC.NURSE ---
patient awakned f0r Heparin admin
[2019-10-28] VITALS (16 sets, daily range): BP systolic 102–137; BP diastolic 63–95; PULSE 50–67; RESP 12–26; TEMP 36.3–37.1; O2SAT 89–96
--- NOTE | 2019-10-28 04:34 | PC.NURSE ---
patient states to nurse that he feels like his cough is getting worse. patient states that he is having some left lower abdominal pain while coughing that started around 3am this morning. patient states that this has happened in the past. no complaints of pain other than coughing.
[2019-10-28 04:53] LABS: Basophils % 0.2 %; Hematocrit 43.5 % (42.0-52.0); Hemoglobin 14.9 g/dL (11.7-16.6); Lymphocytes # 0.5 10^3/uL (0.8-4.8); Lymphocytes % 8.3 %; Mean Corpuscular HGB Conc 34.3 g/dL (30.0-36.0); Mean Corpuscular Hemoglobin 29.2 pg (28.0-34.0); Mean Corpuscular Volume 85.1 fL (80-94); Mean Platelet Volume 11.8 fL (7.4-10.4); Monocytes # 0.1 10^3/uL (0.2-0.9); Monocytes % 1.7 %; Neutrophils # 5.4 10^3/uL (1.8-7.7); Nucleated Red Blood Cells % 0 %; Platelet Count 220 10^3/cmm (130-400); Red Blood Count 5.11 10^6/uL (4.1-5.3); Red Cell Distribution Width 12.7 % (12.1-15.1); White Blood Count 6.1 10^3/uL (4.0-10.0)
[2019-10-28 05:11] LABS: Alanine Aminotransferase 147 U/L (0-41); Albumin Level 2.7 g/dL (3.5-5.2); Alkaline Phosphatase 39 IU/L (40-130); Anion Gap 20.5 (5-19); Aspartate Amino Transferase 72 U/L (0-40); Blood Urea Nitrogen 66 mg/dL (6-20); Calcium 8.9 mg/dL (8.5-10.5); Carbon Dioxide 16 mmol/L (22-29); Chloride 92 mmol/L (98-107); Creatinine Clr Calc Pharmacy 41.9365; Globulin 3.7 g/dL (1.3-4.6); Glomerular Filtration Rate 22.5 mL/min (90-130); Glucose 441 mg/dL (65-115); Osmolality Calculated 278 mOsm/kg (285-295); Potassium 3.5 mmol/L (3.5-5.1); Sodium 125 mmol/L (136-145); Total Bilirubin 0.4 mg/dL (0.15-1.2); Total Protein 6.4 g/dL (6.6-8.7)
[2019-10-28 05:12] LABS: Magnesium 2.9 mg/dL (1.7-2.3)
[2019-10-28 05:37] LABS: Slide Review Slide Review Perform
[2019-10-28] MEDS: heparin 5,000 unit/mL INJ 1 mL 5000 UNIT SUBCUT ×3 (05:37→21:10)
[2019-10-28] MEDS: azithromycin 250 mg Tablet 500 MG PO (06:17)
[2019-10-28 08:27] LABS: Creatine Phosphokinase 1455 U/L (39-308)
--- NOTE | 2019-10-28 09:00 | PC.NURSE ---
[address] RIOS. WILL HOLD LASIX & BETA THOMAS D/T BRADYCARDIA. PT MUCH MORE ALERT THIS MORNING. DENIES ANY PAIN AT PRESENT STATES THAT HE DOESN'T HAVE AN APPETITE.
[2019-10-28] MEDS: pantoprazole DR 40 mg Tablet PO (09:18)
[2019-10-28] MEDS: aspirin 81 mg EC Tablet PO (09:18)
[2019-10-28 10:09] LABS: Glucose Point of Care 370 mg/dL (70-110)
--- NOTE | 2019-10-28 11:14 | PM.PN ---
Subjective Subjective: Interval history: Feels better today; improved breathing, passing urine normally, no pain, no uremic Sx. No diarrhea and eating and drinking normally. Vitals/I&O/Wt Last Vital Signs Temp 98.7 F 10/28/19 06:00 Pulse 55 L 10/28/19 06:00 Resp 22 H 10/28/19 06:00 BP 126/87 10/28/19 06:00 Pulse Ox 94 10/28/19 06:00 10/27/19 10/28/19 10/28/19 22:59 06:59 14:59 Intake Total 200 / 680 1000 / 1680 Output Total 1250 / 1850 1175 / 3025 Balance -1050 / -1170 -175 / -1345 Weight last 48 hrs Weight 120.202 kg Physical Exam HENMT: COMMON NORMALS: normocephalic and atraumatic HEAD & SCALP: normocephalic and atraumatic Eye: COMMON NORMALS: Equal, round and reactive pupils present and EOMs intact bilaterally PUPIL: Yes Equal, round and reactive pupils present Neck/C-Spine: COMMON NORMALS: no JVD Chest: COMMONS NORMALS: normal inspection of the chest Resp: AUSCULTATION: crackles and rales Cardio: COMMON NORMALS: no JVD, regular rate, regular rhythm and Peripheral pulses 2+ throughout RATE: regular rate RHYTHM: regular rhythm PERIPHERAL PULSES: Peripheral pulses 2+ throughout Extremity: COMMON NORMALS: normal to inspection Data : 10/28/19 04:32 10/28/19 04:32 Micro: Microbiology 10/27/19 02:44 Blood Culture - Preliminary Blood NEGATIVE TO DATE 10/27/19 02:44 Blood Culture - Preliminary Blood NEGATIVE TO DATE 10/27/19 02:20 Legionella Urinary Antigen - Final Urine,Clean Catch Bacterial Antigens - Final A&P Additional A&P Information 1. FADY - creatinine has come down with the administration of ivf suggesting pre-renal picture - CPK elevated but coming down and not at a level that would typically cause pigment nephropathy - No further imaging is needed - given heart failure will defer diuretics and ivf at this time - avoid the usuals - am labs - no indication for dialysis 2. Diarrhea, multilobar pneumonia, hyponatremia - urine positive for legionella Ag presumptive positive - mgmt per Dr Knight; on Levaquin - [facility] to investigate further - I have asked him to inform the people he cohabits with and his landlord. He now informs we that his air conditioning unit is old and in need for repair 3. 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 HypoNa - corrected sodium is 131 - drink to thirst - this is a high ADH state (characterized by his hypertonic specific gravity on his UA) - levels are improving and non critical 5. Newly diagnosed diabetes - mgmt per Dr Knight - LA and urinary ketones are negative but high AG remains - tight glycemic control - thanks for consult - interview and exam performed via telemed with the aid of the bedside RN Michael vargas MD [facility] Renal [facility], Telemed [phone] Attestations Medical Necessity Statement*: eval for FADY Coding Level of Care Code Acute Pharmacy Technician Inpatient for Kaelyn Guevara
[2019-10-28 11:51] LABS: Glucose Point of Care 399 mg/dL (70-110)
[2019-10-28 12:05] LABS: Urine Creatinine 164 mg/dL (39-259)
[2019-10-28 12:48] LABS: Urine Protein Random 35 mg/dL; Urine Random Sodium 15 mmol/L
[2019-10-28 12:49] LABS: Urea Nitrogen,Urine Random 753 mg/dL
--- NOTE | 2019-10-28 13:04 | P.CONIM_ITS ---
Providers/Reason For Consult Consulting Physican/Specialty*: Cardiology Reason for Consult*: New onset of heart failure LV dysfunction Attending Physician: Navi Knight Primary Care Provider: Shae May DO History of Present Illness History of Present Illness Osman Muir is a 49 year old male past medical history significant for hypertension, chronic kidney disease, history of alcohol and tobacco abuse, history of substance abuse admitted with legeonella infection/pneumonia and CHF- like presentation. He was also noted to have abnormal cardiac markers which is not out of proportion its renal failure and possible sepsis. Echocardiogram was performed which revealed severely depressed LV function 30%. He had episodes of bradycardia while sleeping. Baseline EKG showed sinus rhythm normal axis and interventricular conduction block with possible old anterior wall myocardial infarction however in the face of borderline criteria for left bundle branch block cannot label him for sure. His COVID test is negative x2. He was able to talk to me. He appeared to be oriented of time and space. He denies chest pain now but told me that few days ago he woke up in the middle of the night as if elephant sitting on his chest he also admits to left arm pain that day. He did not come to ER as he was scared of COVID infection none. He denies any prior episodes of heart problem. According to him he was diagnosed with renal problem since 2009. He also admits to NSAID abuse. Review of Systems Const: Reports: fever(s), chills, body aches, change in appetite, fatigue, malaise, night sweats, diaphoresis and daytime sleepiness; Denies: change in weight Eyes: Denies: change in vision or eye discomfort ENMT: Reports: throat pain; Denies: odynophagia, nasal discharge or nasal congestion Card: Reports: lightheadedness, dyspnea on exertion and orthopnea; Denies: chest pain, palpitations, edema, swelling of feet/ankles or pre-syncope Resp: Reports: dyspnea and productive cough (white and clear) GI: Reports: abdominal pain, nausea, vomiting and diarrhea; Denies: constipation or hematochezia : Denies: flank pain, difficulty urinating, dysuria or hematuria Musc: Denies: neck pain, back pain or extremity swelling Skin/Breast: Denies: rash or new lesions Neuro: Denies: headache(s), numbness in extremities or weakness in extremities Psych: Denies: anxiety Endo: Denies: polyuria Dharmesh/Lymph: Denies: easy bruising All/Imm: Denies: urticaria Meds/Allergies Home Medications and Allergies Home Medications Medication Instructions Recorded Confirmed Last Taken Type lisinopril 10 mg PO BID 10/27/19 10/27/19 10/26/19 History Allergies Allergy/AdvReac Type Severity Reaction Status Date / Time No Known Allergies Allergy Verified 10/27/19 01:12 Current Medications Current Medications Generic Name Dose Route Start Last Admin Trade Name Natalie PRN Reason Stop Dose Admin Aspirin 81 mg 10/28/19 09:00 10/28/19 09:18 Aspirin Ec PO 81 mg DAILY EDELMIRA Administration Azithromycin 500 mg 10/28/19 07:00 10/28/19 06:17 Zithromax PO 500 mg DAILY EDELMIRA Administration Protocol Furosemide 20 mg 10/27/19 08:00 10/28/19 09:13 Lasix PO Not Given DAILY@0800 EDELMIRA Heparin Sodium (Beef Lung) 5,000 unit 10/27/19 06:30 10/28/19 05:37 Heparin SUBCUT 5,000 unit Q8H EDELMIRA Administration Levofloxacin/Dextrose 750 mg in 150 mls @ 100 mls/hr 10/27/19 12:45 10/27/19 15:26 Levaquin-D5w IV 100 mls/hr Q48H EDELMIRA Administration Protocol Insulin Aspart 0 unit 10/28/19 08:00 10/28/19 11:54 Novolog SUBCUT 12 unit TIDWM EDELMIRA Administration Protocol Methylprednisolone Sodium Succinate 60 mg 10/27/19 17:00 10/28/19 05:36 Solu-Medrol IVP 60 mg Q12H EDELMIRA Administration Pantoprazole Sodium 40 mg 10/27/19 16:40 10/28/19 09:18 Protonix PO 40 mg DAILY EDELMIRA Administration PFSH Acute PFSH: Medical History Abnormal coronary angiogram Coronary artery disease PCI x3 Hypertension Prediabetes Surgical History Hx of cardiac cath Family History Other Hypertension Social History Smoking and tobacco status: former smoker Quit status (tobacco): has quit using tobacco Former quit date comment: Quit smoking 1 month ago because of shortness of breath and orthopnea Alcohol intake: never Substance/Drug Use: never Lives independently: Yes Housing: House 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 NECK: No jugular vein distension. HEENT: No cyanosis. No icterus. No pallor. HEART: Regular S1 and S2. No murmur, rub or gallop. LUNGS: Clear to auscultate bilaterally. ABDOMEN: Soft, nontender and nondistended. Positive bowel sounds. No guarding, rebound or tenderness. CENTRAL NERVOUS SYSTEM: Grossly nonfocal. EXTREMITIES: Lower extremities without edema Data Micro: Micro: Microbiology 10/27/19 02:44 Blood Culture - Pr eliminary Blood NEGATIVE TO MAGGI E 10/27/19 02:44 Blood Culture - Pr eliminary Blood NEGATIVE TO MAGGI E 10/27/19 02:20 Legionella Urinary Antigen - Final Urine,Clean Catch Bacterial Antigens - Final A&P Assessment and plan (1) FADY (acute kidney injury): Nephrology is on the case. We will continue hydration IV fluid. Lasix will be on hold. Status: Acute (2) New onset of congestive heart failure: Patient has new onset of left ventricle dysfunction and systolic heart failure. Left ventricular ejection fraction is noted to be severely depressed 30%. Etiology could be ischemic versus nonischemic cardiomyopathy secondary to sepsis infection myocarditis and possible underlying multivessel coronary artery disease as he is high risk for atherosclerotic process due to lifestyle. Ideally he requires angiogram however due to renal injury at this point we will treat him medically and may offer stress test before discharge in order to differentiate for etiology. Once bradycardia will improve I may will add small dose of carvedilol. Once kidney function improves and creatinine below 1.7 we may will add NAOMI inhibitor. I will add isosorbide mononitrate to the regimen for now. Status: Acute (3) Hypertension: Well-controlled continue medicine Status: Acute Qualifiers: Hypertension type: essential hypertension Qualified Code(s): I10 - Essential (primary) hypertension (4) Legionella infection: As per medicine. 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 [employer] Fwd Patient Type New History Detailed Exam Detailed Medical Decision Making High Complexity Diagnoses FADY (acute kidney injury) N17.9 New onset of congestive heart failure I50.9 Hypertension I10 Hypertension type: essential hypertension Legionella infection A48.1
[2019-10-28 13:07] LABS: Coronavirus Lab Test PTC SEE REPORT
--- NOTE | 2019-10-28 15:02 | PC.NURSE ---
1500--PT ENCOURAGED TO GET OUT OF BED. DOESN'T WANT TO GET UP. REVIEWED WITH PT WHAT DR VELAZCO TALKED ABOUT-ANGIOGRAM, STRESS TEST, IMDUR.
[2019-10-28] MEDS: isosorbide mononitrate ER 30 mg Tablet 15 MG PO (15:28)
[2019-10-28 17:08] LABS: Glucose Point of Care 405 mg/dL (70-110)
--- NOTE | 2019-10-28 18:37 | PC.NURSE ---
CONTACTED INFECTIOUS DISEASE FOR + LEGIONELLA PNEUMONIA SHE STATES THAT IT WILL BE REPORTED ON WEDNESDAY TO [facility] & [facility] ON WEDNESDAY.
--- NOTE | 2019-10-28 19:07 | PC.NURSE ---
pt & belongings transferred to room 102. connected to monitor. unsteady gait with transfer. wished well. report given to kala crandall
--- NOTE | 2019-10-28 21:52 | PM.PN ---
Subjective Subjective: Interval history: Denies any pain or discomfort today. Breathing is gradually improving. Occasional tender knot in the lower belly with cough, although soft and no masses on palpation. Vitals/I&O/Wt Last Vital Signs Temp 98.4 F 10/28/19 19:03 Pulse 56 L 10/28/19 19:51 Resp 18 10/28/19 19:51 BP 120/78 10/28/19 19:03 Pulse Ox 93 10/28/19 19:51 10/28/19 10/28/19 10/28/19 06:59 14:59 22:59 Intake Total 1000 / 1830 600 / 600 360 / 960 Output Total 1175 / 3025 1100 / 1100 Balance -175 / -1195 -500 / -500 360 / -140 Weight last 48 hrs Weight 120.202 kg Physical Exam Const: COMMON NORMALS: no acute distress and patient oriented x3 OTHER: Generally somewhat weak, but lucid. HENMT: COMMON NORMALS: oropharynx normal Neck/C-Spine: COMMON NORMALS: no JVD Resp: COMMON NORMALS: normal respiratory effort AUSCULTATION: wheezes and diminished lung sounds Cardio: COMMON NORMALS: no JVD, regular rhythm, S1 normal heart sound present, S2 normal heart sound present and No murmurs present (Cardio) RHYTHM: regular rhythm HEART SOUNDS: S1 normal heart sound present and S2 normal heart sound present GI: COMMON NORMALS: Normal to inspection, nondistended, normoactive bowel sounds present, Soft to palpation and non-tender PALPATION: Yes Soft to palpation Extremity: COMMON NORMALS: no joint enlargement and no pedal edema Neuro: COMMON NORMALS: patient oriented x3 and moves all extremities Skin: COMMON NORMALS: no rashes or lesions noted GENERAL SKIN EXAM: no rashes or lesions noted Data : 10/28/19 04:32 10/28/19 04:32 Micro: Microbiology 10/27/19 02:44 Blood Culture - Preliminary Blood NEGATIVE TO DATE 10/27/19 02:44 Blood Culture - Preliminary Blood NEGATIVE TO DATE A&P Assessment and plan (1) Community acquired pneumonia: He is feeling better. Showing improvement. Oxygenation is stable. Continue antibiotics. Discontinue methylprednisolone, switch to prednisone tomorrow. Severe sepsis due to severe pneumonia resolving. 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 Levaquin, azithromycin. Requested infection control notify about the condition. COVID-19 negative. May continue care on medical floor. Discussed with him regarding Legionella pneumonia, and she states he has a greenhouse at home with missed system for watering plants. Discussed with him system may need antimicrobial treatment, and he understands it may be at risk of reinfection, or infection of others. Status: Acute (2) New onset of congestive heart failure: So far appears compensated. For now holding any additional diuretic. Monitor volume status. Appreciate cardiology assessment. Once renal function is improving, may benefit from additional assessment for ischemic cause. In rare cases cardiomyopathy may be associated with legionnaires disease, however, he does have significant risk factors for ischemic cardiomyopathy. Restart aspirin. Beta-wan for now not possible due to bradycardia. Statin on hold due to rhabdomyolysis. Status: Acute (3) Hypertension: Hypotension resolved. Blood pressures at goal. Status: Acute Qualifiers: Hypertension type: essential hypertension Qualified Code(s): I10 - Essential (primary) hypertension (4) Hyponatremia: Improving. Status: Acute (5) Hypokalemia: Replaced. Status: Acute (6) FADY (acute kidney injury): Improving. Appreciate nephrology recommendations. No further NSAIDs after discharge. This appears multifactorial. Patient reports taking 4 tablets of ibuprofen in the morning and probably the same amount in the evening, having done that for a long time due to chronic pain. At the same time he also has this with hypotension, and likely had dehydration with diarrhea, vomiting secondary to legionnaires disease. Continue to monitor renal function, KASSIDY, electrolytes. Avoid nephrotoxins. Status: Acute (7) Metabolic acidosis: Status: Acute Additional A&P Information Rhabdomyolysis: Improving. Hold statin. Abnormal transaminases: Improving. Continue treatment of underlying conditions. Possibly secondary to CHF, sepsis, dehydration, hypoperfusion. This is now improving with treatment as above. Acute hepatitis panel nonreactive. Drug screen unremarkable. Metabolic acidosis due to uremia Attestations Medical Necessity Statement*: Continue admission for assessment of management of legionnaires disease, complications of severe sepsis. 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
[2019-10-29] MEDS: isosorbide mononitrate ER 30 mg Tablet 15 MG PO ×2 (03:40→14:01)
[2019-10-29 04:00] VITALS: BP 103/67; PULSE 62; RESP 17; TEMP 36.8; O2SAT 94
[2019-10-29] MEDS: heparin 5,000 unit/mL INJ 1 mL 5000 UNIT SUBCUT ×3 (05:45→21:17)
[2019-10-29 05:47] LABS: Basophils # 0.1 10^3/uL (0.0-0.1); Basophils % 0.4 %; Hematocrit 46.6 % (42.0-52.0); Lymphocytes # 1.1 10^3/uL (0.8-4.8); Lymphocytes % 8.1 %; Mean Corpuscular HGB Conc 32.2 g/dL (30.0-36.0); Mean Corpuscular Hemoglobin 30.2 pg (28.0-34.0); Mean Platelet Volume 11.7 fL (7.4-10.4); Monocytes # 0.5 10^3/uL (0.2-0.9); Monocytes % 3.5 %; Neutrophils # 12.1 10^3/uL (1.8-7.7); Neutrophils % 86.8 %; Nucleated Red Blood Cells % 0 %; Platelet Count 193 10^3/cmm (130-400); Red Blood Count 4.96 10^6/uL (4.1-5.3); Red Cell Distribution Width 13.2 % (12.1-15.1); White Blood Count 13.9 10^3/uL (4.0-10.0)
[2019-10-29 05:57] LABS: Alanine Aminotransferase 118 U/L (0-41); Albumin Level 2.6 g/dL (3.5-5.2); Alkaline Phosphatase 34 IU/L (40-130); Anion Gap 18.3 (5-19); Aspartate Amino Transferase 35 U/L (0-40); Blood Urea Nitrogen 64 mg/dL (6-20); Calcium 9.1 mg/dL (8.5-10.5); Carbon Dioxide 16 mmol/L (22-29); Chloride 92 mmol/L (98-107); Globulin 3.5 g/dL (1.3-4.6); Glomerular Filtration Rate 30.6 mL/min (90-130); Glucose 341 mg/dL (65-115); Osmolality Calculated 268 mOsm/kg (285-295); Potassium 3.3 mmol/L (3.5-5.1); Sodium 123 mmol/L (136-145); Total Bilirubin 0.5 mg/dL (0.15-1.2); Total Protein 6.1 g/dL (6.6-8.7)
[2019-10-29 06:10] LABS: Glucose Point of Care 389 mg/dL (70-110)
[2019-10-29] MEDS: azithromycin 250 mg Tablet 500 MG PO (08:38)
[2019-10-29] MEDS: predniSONE 20 mg Tablet 40 MG PO (08:39)
[2019-10-29] MEDS: aspirin 81 mg EC Tablet PO (08:39)
[2019-10-29] MEDS: pantoprazole DR 40 mg Tablet PO (08:39)
--- NOTE | 2019-10-29 08:50 | PM.PN ---
Subjective Subjective: Interval history: poor appetite. has diarrhea. is drinking fluids, not eating well. Medications: Reviewed: Yes Medication Review Details: Current Medications Albuterol/Ipratropium (Duoneb) 3 ml INHALATION Q6H PRN PRN Reason: SHORTNESS OF BREATH Aspirin (Aspirin Ec) 81 mg PO DAILY [facility] Last Admin: 10/29/19 08:39 Dose: 81 mg Documented by: Azithromycin (Zithromax) 500 mg PO DAILY [facility]; Protocol Last Admin: 10/29/19 08:38 Dose: 500 mg Documented by: Dextrose (D50w) 25 ml IVP ONCE PRN; Protocol PRN Reason: hypoglycemia protocol Dextrose (D50w) 50 ml IVP PRN PRN; Protocol PRN Reason: hypoglycemia protocol Furosemide (Lasix) 20 mg PO DAILY@0800 [facility] Last Admin: 10/28/19 09:13 Dose: Not Given Documented by: Glucagon (Glucagen) 1 mg IM ONCE PRN; Protocol PRN Reason: Adult Acute Hypoglycemia Prot. Heparin Sodium (Beef Lung) (Heparin) 5,000 unit SUBCUT Q8H [facility] Last Admin: 10/29/19 05:45 Dose: 5,000 unit Documented by: Levofloxacin/Dextrose (Levaquin-D5w) 750 mg in 150 mls @ 100 mls/hr IV Q48H [facility]; Protocol Last Infusion: 10/27/19 17:00 Dose: Infused Documented by: Dextrose (D5w) 500 mls @ 100 mls/hr IV ONCE PRN; Protocol PRN Reason: Adult Acute Hypoglycemia Prot Insulin Aspart (Novolog) 0 unit SUBCUT TIDWM [facility]; Protocol Last Admin: 10/29/19 07:34 Dose: 12 unit Documented by: Isosorbide Mononitrate (Imdur) 15 mg PO Q12H [facility] Last Admin: 10/29/19 03:40 Dose: 15 mg Documented by: Pantoprazole Sodium (Protonix) 40 mg PO DAILY [facility] Last Admin: 10/29/19 08:39 Dose: 40 mg Documented by: Prednisone (Prednisone) 40 mg PO DAILY [facility] Last Admin: 10/29/19 08:39 Dose: 40 mg Documented by: Vitals/I&O/Wt Last Vital Signs Temp 98.3 F 10/29/19 04:00 Pulse 62 10/29/19 04:00 Resp 17 10/29/19 04:00 BP 103/67 10/29/19 04:00 Pulse Ox 94 10/29/19 04:00 10/28/19 10/29/19 10/29/19 22:59 06:59 14:59 Intake Total 360 / 960 520 / 1480 Balance 360 / -140 520 / 380 Physical Exam Narrative: EXAM NARRATIVE: comfortable in bed. NARD, BP low heent- nc/at, eomi, anicteric neck no jvp lungs crackles b/l heart reg, no rub, +JIMBO abd- soft, nt, nd, +BS ext no edema neuro- a,a, o x 3 pulses + b/l Data : 10/29/19 04:12 10/29/19 04:12 Micro: Microbiology 10/27/19 02:44 Blood Culture - Preliminary Blood Gram positive cocci A&P Additional A&P Information 1. FADY - improving. likely was prerenal azotemia vs ATN 2. hyponatremia- corrected to 126. will check ur lytes. -free wtaer restrict -bicarb ivf -rx hyperglycemia -note pt has tob use and substance abuse hx -normal tsh -on admission low ur na and chloride 3. Heart Failure - combined diastolic and systolic CHF- EF 35% andIII/ IV diastolic dysfunction - per Dr Leary - no demetrius-i / arb yest 4. pna- legioneella infection disease- abx as per hospitalist/ WBC remains elevated at 13.9 5.Newly diagnosed diabetes - mgmt per Dr Knight 6. met acidosis from renal failure and diarrhea 7. 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
[2019-10-29 09:18] VITALS: BP 103/67; PULSE 52; RESP 15; O2SAT 93
--- NOTE | 2019-10-29 09:51 | PM.PN ---
Subjective Subjective: Interval history: Breathing improving. Denies chest pain or discomfort. Is concerned about kidney injury. Vitals/I&O/Wt Last Vital Signs Temp 98.3 F 10/29/19 04:00 Pulse 52 L 10/29/19 09:18 Resp 15 10/29/19 09:18 BP 103/67 10/29/19 09:18 Pulse Ox 93 10/29/19 09:18 10/28/19 10/29/19 10/29/19 22:59 06:59 14:59 Intake Total 360 / 960 520 / 1480 250 / 250 Balance 360 / -140 520 / 380 250 / 250 Physical Exam Const: COMMON NORMALS: no acute distress and patient oriented x3 OTHER: Appears stronger. In good spirits. HENMT: COMMON NORMALS: oropharynx normal Neck/C-Spine: COMMON NORMALS: no JVD Resp: COMMON NORMALS: normal respiratory effort AUSCULTATION: wheezes and diminished lung sounds Cardio: COMMON NORMALS: no JVD, regular rhythm, S1 normal heart sound present, S2 normal heart sound present and No murmurs present (Cardio) RHYTHM: regular rhythm HEART SOUNDS: S1 normal heart sound present and S2 normal heart sound present GI: COMMON NORMALS: Normal to inspection, nondistended, normoactive bowel sounds present, Soft to palpation and non-tender PALPATION: Yes Soft to palpation Extremity: COMMON NORMALS: no joint enlargement and no pedal edema Neuro: COMMON NORMALS: patient oriented x3 and moves all extremities Skin: COMMON NORMALS: no rashes or lesions noted GENERAL SKIN EXAM: no rashes or lesions noted Data : 10/29/19 04:12 10/29/19 04:12 Micro: Microbiology 10/27/19 02:44 Blood Culture - Preliminary Blood Gram positive cocci A&P Assessment and plan (1) Community acquired pneumonia: Improving. Oxygenation is much better. Subjectively he is feeling better. Leukocytosis suspect secondary to steroid induced demargination. Showing improvement. Oxygenation is stable. Continue antibiotics. Switching to prednisone. Severe sepsis due to severe pneumonia resolved. With persistent endorgan injury. Improving liver injury. Very slowly improving kidney injury. Hyponatremia initially improved, currently some worsening sodium down to 123. 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 Levaquin, azithromycin. Requested infection control notify about the condition. COVID-19 negative. May continue care on medical floor. Discussed with him regarding Legionella pneumonia, and she states he has a greenhouse at home with missed system for watering plants. Discussed with him system may need antimicrobial treatment, and he understands it may be at risk of reinfection, or infection of others. Status: Acute (2) New onset of congestive heart failure: Appreciate cardiologic assessment. Consideration of stress test prior to discharge. So far appears compensated. In rare cases cardiomyopathy may be associated with legionnaires disease, however, he does have significant risk factors for ischemic cardiomyopathy. Restart aspirin. Beta-wan for now not possible due to bradycardia. Statin on hold due to rhabdomyolysis. Status: Acute (3) Hypertension: Hypotension resolved. Blood pressures at goal. Status: Acute Qualifiers: Hypertension type: essential hypertension Qualified Code(s): I10 - Essential (primary) hypertension (4) Hyponatremia: Improvement stalled. Sugars are somewhat worse. Corrected sodium 127-129. Nephrology changing adding water restriction, bicarb infusion, rechecking metabolic panel later today. Appreciate recommendations. Status: Acute (5) Hypokalemia: Replaced. Status: Acute (6) FADY (acute kidney injury): Improving. Appreciate nephrology recommendations. No further NSAIDs after discharge. This appears multifactorial. Patient reports taking 4 tablets of ibuprofen in the morning and probably the same amount in the evening, having done that for a long time due to chronic pain. At the same time he also has this with hypotension, and likely had dehydration with diarrhea, vomiting secondary to legionnaires disease. Continue to monitor renal function, KASSIDY, electrolytes. Avoid nephrotoxins. Status: Acute (7) Metabolic acidosis: Status: Acute (8) Diabetes: Some of the hyperglycemia is likely iatrogenic secondary to steroids, may have been also due to sepsis, alternatively progression of his prediabetes may have progressed to diabetes based on sugars on presentation. Although may have been also due to sepsis. Check A1c. Continue insulin sliding scale. Taper off steroids. Consistent carbohydrate diet. Status: Acute Additional A&P Information Rhabdomyolysis: Improving. Hold statin. Abnormal transaminases: Improving. Continue treatment of underlying conditions. Possibly secondary to CHF, sepsis, dehydration, hypoperfusion. This is now improving with treatment as above. Acute hepatitis panel nonreactive. Drug screen unremarkable. Metabolic acidosis due to uremia Attestations Medical Necessity Statement*: Continue admission for assessment and management of Legionella pneumonia, new onset congestive heart failure, acute kidney injury. Coding Level of Care Code Acute Personnel Records Clerk for g Fwd Exam Comprehensive Diagnoses Community acquired pneumonia J18.9 New onset of congestive heart failure I50.9 Hypertension I10 Hypertension type: essential hypertension Hyponatremia E87.1 Hypokalemia E87.6 FADY (acute kidney injury) N17.9 Metabolic acidosis E87.2 Diabetes E11.9
[2019-10-29 10:51] LABS: Potassium, Radom Urine 10 mmol/L; Urine Creatinine 94 mg/dL (39-259)
[2019-10-29 11:29] LABS: Glucose Point of Care 397 mg/dL (70-110)
[2019-10-29 11:49] LABS: Estmated Average Glucose 186; Hemoglobin A1C 8.1 % (4.0-6.0)
[2019-10-29 12:00] VITALS: BP 110/69; PULSE 52; RESP 14; O2SAT 94
[2019-10-29] MEDS: levofloxacin-dextrose 5 % 750 MG/150 ML PREMIX 100 MG IV (14:03)
[2019-10-29 16:52] LABS: Glucose Point of Care 343 mg/dL (70-110)
--- NOTE | 2019-10-29 17:12 | P.PN_ITS ---
Subjective Subjective: Interval history: Denies any complaint. Feeling better. Creatinine is started improving. Medications: Reviewed: Yes Medication Review Details: Current Medications Albuterol/Ipratropium (Duoneb) 3 ml INHALATION Q6H PRN PRN Reason: SHORTNESS OF BREATH Aspirin (Aspirin Ec) 81 mg PO DAILY [facility] Last Admin: 10/29/19 08:39 Dose: 81 mg Documented by: Azithromycin (Zithromax) 500 mg PO DAILY [facility]; Protocol Last Admin: 10/29/19 08:38 Dose: 500 mg Documented by: Dextrose (D50w) 25 ml IVP ONCE PRN; Protocol PRN Reason: hypoglycemia protocol Dextrose (D50w) 50 ml IVP PRN PRN; Protocol PRN Reason: hypoglycemia protocol Furosemide (Lasix) 20 mg PO DAILY@0800 [facility] Last Admin: 10/28/19 09:13 Dose: Not Given Documented by: Glucagon (Glucagen) 1 mg IM ONCE PRN; Protocol PRN Reason: Adult Acute Hypoglycemia Prot. Heparin Sodium (Beef Lung) (Heparin) 5,000 unit SUBCUT Q8H [facility] Last Admin: 10/29/19 05:45 Dose: 5,000 unit Documented by: Levofloxacin/Dextrose (Levaquin-D5w) 750 mg in 150 mls @ 100 mls/hr IV Q48H [facility]; Protocol Last Infusion: 10/27/19 17:00 Dose: Infused Documented by: Dextrose (D5w) 500 mls @ 100 mls/hr IV ONCE PRN; Protocol PRN Reason: Adult Acute Hypoglycemia Prot Insulin Aspart (Novolog) 0 unit SUBCUT TIDWM [facility]; Protocol Last Admin: 10/29/19 07:34 Dose: 12 unit Documented by: Isosorbide Mononitrate (Imdur) 15 mg PO Q12H [facility] Last Admin: 10/29/19 03:40 Dose: 15 mg Documented by: Pantoprazole Sodium (Protonix) 40 mg PO DAILY [facility] Last Admin: 10/29/19 08:39 Dose: 40 mg Documented by: Prednisone (Prednisone) 40 mg PO DAILY [facility] Last Admin: 10/29/19 08:39 Dose: 40 mg Documented by: Vitals/I&O/Wt Last Vital Signs Temp 98.3 F 10/29/19 04:00 Pulse 52 L 10/29/19 12:00 Resp 14 10/29/19 12:00 BP 110/69 10/29/19 12:00 Pulse Ox 94 10/29/19 12:00 10/29/19 10/29/19 10/29/19 06:59 14:59 22:59 Intake Total 520 / 1480 370 / 370 Output Total 580 / 580 Balance 520 / 380 -210 / -210 Physical Exam Narrative: EXAM NARRATIVE: GENERAL: Patient is alert, awake and oriented x3. NECK: No jugular vein distension. HEENT: No cyanosis. No icterus. No pallor. HEART: Regular S1 and S2. No murmur, rub or gallop. LUNGS: Clear to auscultate bilaterally. ABDOMEN: Soft, nontender and nondistended. Positive bowel sounds. No guarding, rebound or tenderness. CENTRAL NERVOUS SYSTEM: Grossly nonfocal. EXTREMITIES: Lower extremities without edema Data : 10/29/19 04:12 10/29/19 04:12 Micro: Microbiology 10/27/19 02:44 Blood Culture - Preliminary Blood Gram positive cocci A&P Assessment and plan (1) FADY (acute kidney injury): Nephrology is on the case. We will continue hydration IV fluid. Status: Acute (2) New onset of congestive heart failure: Well compensated continue to optimize medicine. Once stable creatinine rojas we will consider angiogram other option is stress test before discharge Status: Acute (3) Hypertension: Well-controlled continue medicine Status: Acute Qualifiers: Hypertension type: essential hypertension Qualified Code(s): I10 - Essential (primary) hypertension (4) Legionella infection: As per medicine. Status: Acute Attestations Medical Necessity Statement*: Requires continuation hospitalization for above defined care. Coding Level of Care Code Established Pt Acute Fruit Tester for g Fwd Patient Type Established History Expanded Problem Focused Exam Expanded Problem Focused Medical Decision Making Moderate Complexity Diagnoses FADY (acute kidney injury) N17.9 New onset of congestive heart failure I50.9 Hypertension I10 Hypertension type: essential hypertension Legionella infection A48.1
[2019-10-29 17:29] VITALS: BP 135/72; PULSE 57; RESP 14; TEMP 36.8
[2019-10-29 17:58] LABS: Alanine Aminotransferase 103 U/L (0-41); Albumin Level 2.9 g/dL (3.5-5.2); Alkaline Phosphatase 33 IU/L (40-130); Anion Gap 14.9 (5-19); Aspartate Amino Transferase 24 U/L (0-40); Blood Urea Nitrogen 75 mg/dL (6-20); Calcium 8.3 mg/dL (8.5-10.5); Carbon Dioxide 22 mmol/L (22-29); Chloride 95 mmol/L (98-107); Globulin 2.6 g/dL (1.3-4.6); Glomerular Filtration Rate 32.2 mL/min (90-130); Glucose 318 mg/dL (65-115); Osmolality Calculated 280 mOsm/kg (285-295); Sodium 129 mmol/L (136-145); Total Bilirubin 0.5 mg/dL (0.15-1.2); Total Protein 5.5 g/dL (6.6-8.7)
[2019-10-29 18:09] LABS: Potassium 2.9 mmol/L (3.5-5.1)
[2019-10-29 18:10] LABS: Urine Random Sodium < 10 mmol/L
[2019-10-29 18:11] LABS: Urine Random Chloride < 10 mmol/L
[2019-10-29] MEDS: sodium chloride 0.9% 1,000 ML 100 ML IV (19:07)
--- NOTE | 2019-10-29 19:11 | PC.NURSE ---
Recieved report from SAJAN Mcqueen. Assumed care of patient. Administered medications as ordered. Assessment completed as documented.
[2019-10-29 19:33] VITALS: BP 110/66; PULSE 60; RESP 18; O2SAT 97
[2019-10-29 20:32] LABS: Glucose Point of Care 293 mg/dL (70-110)
[2019-10-29 23:16] VITALS: BP 92/51; PULSE 50; RESP 18; TEMP 36.4; O2SAT 95
[2019-10-30] VITALS (9 sets, daily range): BP systolic 96–131; BP diastolic 44–80; PULSE 50–68; RESP 12–20; TEMP 36.4–36.6; O2SAT 93–98
[2019-10-30] MEDS: isosorbide mononitrate ER 30 mg Tablet 15 MG PO ×2 (01:48→15:03)
[2019-10-30 05:02] LABS: Basophils % 0.2 %; Hemoglobin 13.8 g/dL (11.7-16.6); Lymphocytes # 1.6 10^3/uL (0.8-4.8); Lymphocytes % 9.8 %; Mean Corpuscular HGB Conc 35.4 g/dL (30.0-36.0); Mean Corpuscular Hemoglobin 30.5 pg (28.0-34.0); Mean Corpuscular Volume 86.1 fL (80-94); Mean Platelet Volume 10.7 fL (7.4-10.4); Monocytes # 1.1 10^3/uL (0.2-0.9); Monocytes % 6.6 %; Neutrophils # 13.6 10^3/uL (1.8-7.7); Neutrophils % 81.9 %; Nucleated Red Blood Cells % 0 %; Platelet Count 288 10^3/cmm (130-400); Red Blood Count 4.53 10^6/uL (4.1-5.3); Red Cell Distribution Width 12.9 % (12.1-15.1); White Blood Count 16.6 10^3/uL (4.0-10.0)
[2019-10-30] MEDS: heparin 5,000 unit/mL INJ 1 mL 5000 UNIT SUBCUT ×3 (05:03→21:50)
[2019-10-30] MEDS: sodium chloride 0.9% 1,000 ML 100 ML IV (05:04)
[2019-10-30 05:27] LABS: Alanine Aminotransferase 91 U/L (0-41); Albumin Level 2.7 g/dL (3.5-5.2); Alkaline Phosphatase 37 IU/L (40-130); Anion Gap 15.5 (5-19); Aspartate Amino Transferase 25 U/L (0-40); Blood Urea Nitrogen 63 mg/dL (6-20); Calcium 8.9 mg/dL (8.5-10.5); Carbon Dioxide 22 mmol/L (22-29); Chloride 100 mmol/L (98-107); Glomerular Filtration Rate 38.2 mL/min (90-130); Glucose 277 mg/dL (65-115); Osmolality Calculated 287 mOsm/kg (285-295); Potassium 3.5 mmol/L (3.5-5.1); Sodium 134 mmol/L (136-145); Total Bilirubin 0.5 mg/dL (0.15-1.2); Total Protein 5.7 g/dL (6.6-8.7)
[2019-10-30 06:21] LABS: Glucose Point of Care 227 mg/dL (70-110)
--- NOTE | 2019-10-30 06:56 | PM.PN ---
Subjective Subjective: Interval history: feels better. dec cough. breathing improving. + tounge pain. no n/v/f/c/pandey Medications: Reviewed: Yes Medication Review Details: Current Medications Albuterol/Ipratropium (Duoneb) 3 ml INHALATION Q6H PRN PRN Reason: SHORTNESS OF BREATH Aspirin (Aspirin Ec) 81 mg PO DAILY [facility] Last Admin: 10/29/19 08:39 Dose: 81 mg Documented by: Azithromycin (Zithromax) 500 mg PO DAILY [facility]; Protocol Last Admin: 10/29/19 08:38 Dose: 500 mg Documented by: Dextrose (D50w) 25 ml IVP ONCE PRN; Protocol PRN Reason: hypoglycemia protocol Dextrose (D50w) 50 ml IVP PRN PRN; Protocol PRN Reason: hypoglycemia protocol Glucagon (Glucagen) 1 mg IM ONCE PRN; Protocol PRN Reason: Adult Acute Hypoglycemia Prot. Heparin Sodium (Beef Lung) (Heparin) 5,000 unit SUBCUT Q8H [facility] Last Admin: 10/30/19 05:03 Dose: 5,000 unit Documented by: Levofloxacin/Dextrose (Levaquin-D5w) 750 mg in 150 mls @ 100 mls/hr IV Q48H [facility]; Protocol Last Infusion: 10/29/19 15:45 Dose: Infused Documented by: Dextrose (D5w) 500 mls @ 100 mls/hr IV ONCE PRN; Protocol PRN Reason: Adult Acute Hypoglycemia Prot Sodium Chloride (Sodium Chloride 0.9%) 1,000 mls @ 100 mls/hr IV .Q10H [facility] Last Admin: 10/30/19 05:04 Dose: 100 mls/hr Documented by: Insulin Aspart (Novolog) 0 unit SUBCUT TIDWM [facility]; Protocol Last Admin: 10/29/19 17:51 Dose: 12 unit Documented by: Isosorbide Mononitrate (Imdur) 15 mg PO Q12H [facility] Last Admin: 10/30/19 01:48 Dose: 15 mg Documented by: Pantoprazole Sodium (Protonix) 40 mg PO DAILY [facility] Last Admin: 10/29/19 08:39 Dose: 40 mg Documented by: Prednisone (Prednisone) 40 mg PO DAILY [facility] Last Admin: 10/29/19 08:39 Dose: 40 mg Documented by: Vitals/I&O/Wt Last Vital Signs Temp 97.5 F L 10/29/19 23:16 Pulse 50 L 10/30/19 03:23 Resp 15 10/30/19 03:23 BP 96/44 10/30/19 03:23 Pulse Ox 96 10/30/19 03:23 10/29/19 10/29/19 10/30/19 14:59 22:59 06:59 Intake Total 370 / 370 1506.667 / 6548.008 5033 / 3191.667 Output Total 580 / 580 730 / 1310 850 / 2160 Balance -210 / -210 776.667 / 566.667 465 / 1031.667 Physical Exam Narrative: EXAM NARRATIVE: comfortable in bed. NARD, BP low heent- nc/at, eomi, anicteric neck no jvp lungs clear b/l heart reg, no rub, +JIMBO abd- soft, nt, nd, +BS ext no edema neuro- a,a, o x 3 pulses + b/l Data : 10/30/19 04:00 10/30/19 04:00 A&P Additional A&P Information 1. FADY - improving. likely was prerenal azotemia vs ATN 2. hyponatremia- improving -free water restrict -dec ivf -note pt has tob use and substance abuse hx -normal tsh -on admission low ur na and chloride -low ur na and chloride noted 3. Heart Failure - combined diastolic and systolic CHF- EF 35% andIII/ IV diastolic dysfunction - per Dr Leary - no demetrius-i / arb yest 4. pna- legioneella infection disease- abx as per hospitalist/ WBC rising to 16 5.Newly diagnosed diabetes - mgmt per Dr Knight 6. met acidosis from renal failure and diarrhea -improving 7. rhabdomyolysis - is improving- check cpk meds reviewed - interview and exam performed via telemed with the aid of the bedside RN Attestations Medical Necessity Statement*: chf, fady, legionella- pna, rhabdomyolysis Time Spent in Patient Care: 16 - 35 minutes Coding Level of Care Code Acute Choker Setter for Kaelyn Guevara
[2019-10-30 07:38] LABS: Creatine Phosphokinase 371 U/L (39-308)
[2019-10-30] MEDS: predniSONE 20 mg Tablet 40 MG PO (10:20)
[2019-10-30] MEDS: azithromycin 250 mg Tablet 500 MG PO (10:20)
[2019-10-30] MEDS: aspirin 81 mg EC Tablet PO (10:20)
[2019-10-30] MEDS: pantoprazole DR 40 mg Tablet PO (10:21)
--- NOTE | 2019-10-30 10:22 | PC.NURSE ---
Med delay as patient was sleeping and we were consolidating activity to allow for a sleep episode.
--- NOTE | 2019-10-30 10:25 | PC.PHAR ---
Levaquin dosing changed from 750mg Q48h to 750mg Q24h based on pt improving renal function and SCr (~67). Will continue to monitor and make changes when appropriate.
[2019-10-30 11:30] LABS: Glucose Point of Care 195 mg/dL (70-110)
--- NOTE | 2019-10-30 12:25 | P.PN_ITS ---
Subjective Subjective: Interval history: Patient feeling a little bit better today. Not much of a cough. Has a little bit more energy and appetite. Reviewed with him diagnosis of Legionella pneumonia and showed him his chest x-ray to explain how he had involvement in multiple lungs. We also talked about cardiac enlargement as well as his troponin elevation. Given his history of coronary artery disease with previous stents, would ideally benefit from arteriogram although renal function precludes ability to do this at the moment. I discussed the case with Dr. Leary. Plan is for stress testing versus arteriogram prior to discharge. Patient denies ongoing diarrhea or abdominal pain today. Medications: Reviewed: Yes Medication Review Details: On Levaquin and azithromycin Prednisone 40 mg daily Currently off of home lisinopril Vitals/I&O/Wt Last Vital Signs Temp 97.8 F 10/30/19 07:20 Pulse 61 10/30/19 09:26 Resp 16 10/30/19 09:26 BP 110/65 10/30/19 08:07 Pulse Ox 95 10/30/19 09:26 10/29/19 10/30/19 10/30/19 22:59 06:59 14:59 Intake Total 1506.667 / 6133.628 0768 / 3191.667 220 / 220 Output Total 730 / 1310 850 / 2160 Balance 776.667 / 566.667 465 / 1031.667 220 / 220 Physical Exam Const: OTHER: Alert, oriented x3, cooperative HENMT: OTHER: Normocephalic atraumatic, moist mucus membranes Eye: OTHER: Pupils are reactive Neck/C-Spine: OTHER: Supple, no JVD noted Resp: OTHER: Scattered rhonchi and wheezes, not currently requiring oxygen, no accessory muscle use Cardio: OTHER: Bradycardic but regular rhythm, no murmurs GI: OTHER: Abdomen soft, nontender, nondistended with positive bowel sounds Extremity: NARRATIVE EXTREMITY EXAM: No cyanosis, clubbing or edema, no acute synovitis. Does have large hands but appears to be a tall adry. Neuro: OTHER: Face symmetric, speech clear, moves all extremities Psych: OTHER: Normal affect Skin: OTHER: Skin dry, some scattered bruises at sites of lab draws and such. Data : 10/30/19 04:00 10/30/19 04:00 A&P Assessment and plan (1) Legionella pneumonia: CRP was 155 at admission, lactic acid 1.3. Diagnosed with severe sepsis at admission which has since resolved. White count is trending upward with predominance of neutrophils. Suspect related to steroids as overall improving. 1 blood culture bottle with gram-positive cocci, identification pending Status: Acute (2) Combined systolic and diastolic congestive heart failure: New diagnosis, ejection fraction 35%, grade 3/4 diastolic dysfunction this hospital stay, no current NAOMI inhibitor nor ARB secondary to renal failure. BNP at admission was around 12,000. Status: Acute Qualifiers: Heart failure chronicity: acute on chronic Qualified Code(s): I50.43 - Acute on chronic combined systolic (congestive) and diastolic (congestive) heart failure (3) Acute renal failure: With creatinine at admission 4.7. Suspect secondary to ATN (in the setting of severe sepsis and chronic NSAID use) plus or minus effect of prerenal azotemia from volume losses related to diarrhea. Status: Acute Qualifiers: Acute renal failure type: with acute tubular necrosis Qualified Code(s): N17.0 - Acute kidney failure with tubular necrosis (4) CAD (coronary artery disease): Patient's heart rate is staying in the 50s and blood pressures generally running 90s to low 100s systolic. These values are acceptable under the circumstances. Peak troponin was 104 though without significant delta. Status: Acute Qualifiers: Associated angina: without angina Coronary Disease-Associated Artery/Lesion type: cheesh-na artery [place] vs. transplanted heart: cheesh-na heart Qualified Code(s): I25.10 - Atherosclerotic heart disease of cheesh-na coronary artery without angina pectoris (5) Hypertension: Hypotension resolved. Blood pressures at goal. Well-controlled continue medicine Status: Acute Qualifiers: Hypertension type: essential hypertension Qualified Code(s): I10 - Essential (primary) hypertension (6) Diabetes: Hemoglobin A1c 8.1, fluids prediabetic only prior to admission. Currently on steroids. Difficult to ascertain if chronic complications currently beyond hyperglycemia given other acute as well as chronic issues. Status: Acute Qualifiers: Diabetes mellitus complication status: with hyperglycemia Diabetes mellitus mcfp insulin use: without longwall headgate operator use Diabetes mellitus type: type 2 Qualified Code(s): E11.65 - Type 2 diabetes mellitus with hyperglycemia (7) Dyslipidemia: New diagnosis Status: Acute (8) Hyponatremia: Improving slowly, related to #1. Remains on fluid restriction and decreased IV fluids. TSH was normal. Status: Acute (9) Hypokalemia: Improving, intermittently remains low Status: Acute (10) Metabolic acidosis: Secondary to renal failure Status: Resolved Additional A&P Information Hypoalbuminemia Elevated CK/rhabdomyolysis, improving slowly with careful hydration Transaminitis, negative hepatitis panel, resolving, felt secondary to acute liver injury from sepsis Hyperuricemia in the setting of acute renal failure, though could have a chronic element of this Negative for COVID-19 both here as well as at [facility] prior to admission Change Levaquin to oral, will need a total of 7 to 10 days of therapy depending on clinical course/response to treatment Discontinue azithromycin Continue prednisone On breathing treatments Follow-up pending blood culture results Infection control notified health department who has already been out to his house. His girlfriend is packing up the house and they are going to move out of it. Home NAOMI inhibitor held due to renal failure Not currently on any diuretic therapy On a lower dose of IV fluids Continue serial labs On aspirin therapy Not currently on statin secondary to a CK elevation and transaminitis but will need to consider at some point, likely in the outpatient setting Discussed with Dr. Leary and plan is to consider arteriogram versus stress testing depending on how his renal function does. Some testing will need to be done prior to discharge given new onset of CHF in the setting of known coronary artery disease Monitor blood pressures and heart rate closely for further change though present values are acceptable in light of above On sliding scale insulin Will need to transition to oral medications. Renal dysfunction, CHF, transaminitis and such will require close monitoring after initiation of any medication. Insulin may be the safest however will also be one of the most expensive given that he does not have insurance. Jardiance possible option with CVS and CKD likely. For now start some long acting and adjust corrective insulin dosing Recheck uric acid in the morning Appreciate nephrology and cardiology assistance in this case On PPI On subcu heparin PT evaluate and treat Supportive care otherwise Plans were discussed with patient and he was given an opportunity to ask questions Full code Attestations Medical Necessity Statement*: Requires ongoing inpatient stay while we continue to treat for Legionella, hyponatremia, new onset CHF and renal failure. Patient needs further cardiac evaluation prior to discharge once other issues are a bit more stabilized. Plans are as indicated above Coding Level of Care Code Acute Grain Processor for [facility] Fwd Diagnoses Legionella pneumonia A48.1 Combined systolic and diastolic congestive heart failure I50.43 Heart failure chronicity: acute on chronic Acute renal failure N17.0 Acute renal failure type: with acute tubular necrosis CAD (coronary artery disease) I25.10 Associated angina: without angina Coronary Disease-Associated Artery/Lesion type: cheesh-na artery [place] vs. transplanted heart: cheesh-na heart Hypertension I10 Hypertension type: essential hypertension Diabetes E11.65 Diabetes mellitus complication status: with hyperglycemia Diabetes mellitus longwall headgate operator insulin use: without longwall headgate operator use Diabetes mellitus type: type 2 Dyslipidemia E78.5 Hyponatremia E87.1 Hypokalemia E87.6 Metabolic acidosis E87.2
[2019-10-30] MEDS: levofloxacin-dextrose 5 % 750 MG/150 ML PREMIX 100 MG IV (12:36)
--- NOTE | 2019-10-30 13:58 | PM.PN ---
Subjective Subjective: Interval history: Continues to improve denies any complaint. Medications: Reviewed: Yes Medication Review Details: On Levaquin and azithromycin Prednisone 40 mg daily Currently off of home lisinopril Vitals/I&O/Wt Last Vital Signs Temp 97.6 F 10/30/19 13:33 Pulse 51 L 10/30/19 13:33 Resp 20 H 10/30/19 13:33 BP 110/65 10/30/19 13:33 Pulse Ox 95 10/30/19 13:33 10/29/19 10/30/19 10/30/19 22:59 06:59 14:59 Intake Total 1506.667 / 4869.870 9403 / 3191.667 440 / 440 Output Total 730 / 1310 850 / 2160 Balance 776.667 / 566.667 465 / 1031.667 440 / 440 Physical Exam Narrative: EXAM NARRATIVE: GENERAL: Patient is alert, awake and oriented x3. NECK: No jugular vein distension. HEENT: No cyanosis. No icterus. No pallor. HEART: Regular S1 and S2. No murmur, rub or gallop. LUNGS: Clear to auscultate bilaterally. ABDOMEN: Soft, nontender and nondistended. Positive bowel sounds. No guarding, rebound or tenderness. CENTRAL NERVOUS SYSTEM: Grossly nonfocal. EXTREMITIES: Lower extremities without edema Data : 10/30/19 04:00 10/30/19 04:00 A&P Assessment and plan (1) FADY (acute kidney injury): Continues to improve. Status: Acute (2) New onset of congestive heart failure: Well compensated continue to optimize medicine. Once stable creatinine rojas we will consider angiogram other option is stress test before discharge Status: Acute (3) Hypertension: Well-controlled continue medicine Status: Acute Qualifiers: Hypertension type: essential hypertension Qualified Code(s): I10 - Essential (primary) hypertension (4) Legionella infection: As per medicine. Status: Acute Attestations Medical Necessity Statement*: Require continuation hospitalization for above defined care. Coding Level of Care Code Established Pt Acute Funeral Professional for [place] Fwd Patient Type Established History Expanded Problem Focused Exam Expanded Problem Focused Medical Decision Making Moderate Complexity Diagnoses FADY (acute kidney injury) N17.9 New onset of congestive heart failure I50.9 Hypertension I10 Hypertension type: essential hypertension Legionella infection A48.1
[2019-10-30 14:37] LABS: Osmolality Urine 476 mOsm/kg (50-1200)
[2019-10-30] MEDS: sodium chloride 0.9% 1,000 ML 60 ML IV (15:05)
[2019-10-30 15:11] LABS: Osmolality Serum 289 mOsm/kg (278-305)
[2019-10-30 17:11] LABS: Glucose Point of Care 256 mg/dL (70-110)
[2019-10-30 21:42] LABS: Glucose Point of Care 221 mg/dL (70-110)
[2019-10-31] VITALS (8 sets, daily range): BP systolic 101–130; BP diastolic 55–76; PULSE 51–62; RESP 14–18; TEMP 36.4–36.5; O2SAT 94–97
[2019-10-31] MEDS: sodium chloride 0.9% 1,000 ML 60 ML IV ×2 (01:49→19:40)
[2019-10-31] MEDS: isosorbide mononitrate ER 30 mg Tablet 15 MG PO ×2 (01:50→13:55)
[2019-10-31 04:41] LABS: Basophils % 0.2 %; Eosinophils % 0.1 %; Hematocrit 39.7 % (42.0-52.0); Hemoglobin 13.6 g/dL (11.7-16.6); Lymphocytes # 2.6 10^3/uL (0.8-4.8); Lymphocytes % 21.8 %; Mean Corpuscular HGB Conc 34.3 g/dL (30.0-36.0); Mean Corpuscular Hemoglobin 30.2 pg (28.0-34.0); Mean Platelet Volume 10.3 fL (7.4-10.4); Monocytes # 1.2 10^3/uL (0.2-0.9); Monocytes % 10.2 %; Neutrophils # 7.8 10^3/uL (1.8-7.7); Neutrophils % 66.7 %; Nucleated Red Blood Cells % 0 %; Platelet Count 373 10^3/cmm (130-400); Red Blood Count 4.51 10^6/uL (4.1-5.3); Red Cell Distribution Width 13.2 % (12.1-15.1); White Blood Count 11.7 10^3/uL (4.0-10.0)
[2019-10-31 05:03] LABS: C Reactive Protein 20.9 mg/L (0.0-4.9); Magnesium 2.5 mg/dL (1.7-2.3); Phosphorus 3.1 mg/dL (2.5-4.5); Uric Acid 7.3 mg/dL (3.4-7.0)
[2019-10-31 05:04] LABS: Alanine Aminotransferase 78 U/L (0-41); Albumin Level 2.7 g/dL (3.5-5.2); Alkaline Phosphatase 31 IU/L (40-130); Anion Gap 14.3 (5-19); Aspartate Amino Transferase 22 U/L (0-40); Blood Urea Nitrogen 51 mg/dL (6-20); Carbon Dioxide 22 mmol/L (22-29); Chloride 106 mmol/L (98-107); Globulin 2.8 g/dL (1.3-4.6); Glomerular Filtration Rate 46.6 mL/min (90-130); Glucose 147 mg/dL (65-115); Osmolality Calculated 289 mOsm/kg (285-295); Potassium 3.3 mmol/L (3.5-5.1); Sodium 139 mmol/L (136-145); Total Bilirubin 0.5 mg/dL (0.15-1.2); Total Protein 5.5 g/dL (6.6-8.7)
[2019-10-31 05:09] LABS: Creatine Phosphokinase 342 U/L (39-308)
[2019-10-31] MEDS: heparin 5,000 unit/mL INJ 1 mL 5000 UNIT SUBCUT ×3 (06:24→21:39)
[2019-10-31 06:28] LABS: Glucose Point of Care 141 mg/dL (70-110)
--- NOTE | 2019-10-31 07:55 | PM.PN ---
Subjective Subjective: Interval history: feels better. wants to go home. no n/v/f/c/pandey/d/sob. Medications: Reviewed: Yes Medication Review Details: Current Medications Albuterol/Ipratropium (Duoneb) 3 ml INHALATION Q6H.RESPIRATORY PRN PRN Reason: SHORTNESS OF BREATH Aspirin (Aspirin Ec) 81 mg PO DAILY [facility] Last Admin: 10/30/19 10:20 Dose: 81 mg Documented by: Dextrose (D50w) 25 ml IVP ONCE PRN; Protocol PRN Reason: hypoglycemia protocol Dextrose (D50w) 50 ml IVP PRN PRN; Protocol PRN Reason: hypoglycemia protocol Glucagon (Glucagen) 1 mg IM ONCE PRN; Protocol PRN Reason: Adult Acute Hypoglycemia Prot. Heparin Sodium (Beef Lung) (Heparin) 5,000 unit SUBCUT Q8H [facility] Last Admin: 10/31/19 06:24 Dose: 5,000 unit Documented by: Dextrose (D5w) 500 mls @ 100 mls/hr IV ONCE PRN; Protocol PRN Reason: Adult Acute Hypoglycemia Prot Sodium Chloride (Sodium Chloride 0.9%) 1,000 mls @ 60 mls/hr IV .[id number] [facility] Last Admin: 10/31/19 01:49 Dose: 60 mls/hr Documented by: Levofloxacin/Dextrose (Levaquin-D5w) 750 mg in 150 mls @ 100 mls/hr IV Q24H [facility]; Protocol Last Admin: 10/30/19 12:36 Dose: 100 mls/hr Documented by: Insulin Aspart (Novolog) 0 unit SUBCUT TIDWM [facility]; Protocol Last Admin: 10/30/19 17:11 Dose: 8 unit Documented by: Insulin Aspart (Novolog) 0 unit SUBCUT BEDTIME [facility]; Protocol Last Admin: 10/30/19 21:53 Dose: 3 unit Documented by: Insulin Detemir (Levemir) 5 unit SUBCUT BEDTIME [facility] Last Admin: 10/30/19 21:52 Dose: 5 unit Documented by: Isosorbide Mononitrate (Imdur) 15 mg PO Q12H [facility] Last Admin: 10/31/19 01:50 Dose: 15 mg Documented by: Pantoprazole Sodium (Protonix) 40 mg PO DAILY [facility] Last Admin: 10/30/19 10:21 Dose: 40 mg Documented by: Prednisone (Prednisone) 40 mg PO DAILY [facility] Last Admin: 10/30/19 10:20 Dose: 40 mg Documented by: Vitals/I&O/Wt Last Vital Signs Temp 97.6 F 10/31/19 07:13 Pulse 52 L 10/31/19 07:13 Resp 18 10/31/19 07:13 BP 101/55 10/31/19 07:13 Pulse Ox 96 10/31/19 07:13 10/30/19 10/31/19 10/31/19 22:59 06:59 14:59 Intake Total 1180 / 1620 864 / 2484 Output Total 710 / 1770 825 / 2595 Balance 470 / -150 39 / -111 Physical Exam Narrative: EXAM NARRATIVE: comfortable in bed. NARD, BP low heent- nc/at, eomi, anicteric neck no jvp lungs clear b/l heart reg, no rub, +JIMBO abd- soft, nt, nd, +BS ext no edema neuro- a,a, o x 3 pulses + b/l Data : 10/31/19 04:15 10/31/19 04:15 A&P Additional A&P Information 1. FADY - improving. likely was prerenal azotemia vs ATN -if eating, then d/c ivf -needs outpt renal and cardiology f/y 2. hyponatremia- improved -free water restriction can be stopped -d/c ivf -note pt has tob use and substance abuse hx -normal tsh -on admission low ur na and chloride -low ur na and chloride noted 3. Heart Failure - combined diastolic and systolic CHF- EF 35% andIII/ IV diastolic dysfunction - per Dr Leary - no demetrius-i / arb yet- bp low, and cr still 1.6 -if needs cardiac cath- he i still at inc risk for MIMI 4. pna- legioneella infection disease- abx as per hospitalist/ WBC improved to 11.7 5.Newly diagnosed diabetes - mgmt per Dr Knight 6. met acidosis from renal failure and diarrhea -improving 7. replace k 8. rhabdomyolysis - is improving- cpk now 342 9. BP remians low- ensure he is not orthostatic d/c per hospitalist- ensure pt is eating and drinking - he needs nutrition. low albumin likely from pna meds reviewed - interview and exam performed via telemed with the aid of the bedside RN Attestations Medical Necessity Statement*: legionella's disease, pna, fady Time Spent in Patient Care: 16 - 35 minutes Coding Level of Care Code Acute Process Control Manager for Kaelyn Guevara
[2019-10-31] MEDS: aspirin 81 mg EC Tablet PO (09:47)
[2019-10-31] MEDS: pantoprazole DR 40 mg Tablet PO (09:47)
--- NOTE | 2019-10-31 10:15 | ECG_ITS ---
Measurements Intervals [place] Rate: 45 P: 6 UT: 219 QRS: -48 QRSD: 139 T: 127 QT: 498 QTc: 434 SINUS BRADYCARDIA WITH FIRST DEGREE AV BLOCK INTRAVENTRICULAR CONDUCTION DELAY [130+ ms QRS DURATION] POSSIBLE ANTERIOR MYOCARDIAL INFARCTION [30 ms Q WAVE IN V3/V4, OR R < 0.2 mV IN V4], OF INDETERMINATE AGE INFERIOR MYOCARDIAL INFARCTION [40+ ms Q WAVE AND/OR ST/T ABNORMALITY IN II/aVF II/aVF], PROBABLY OLD INTERPRETATION BASED ON A DEFAULT AGE OF 40 YEARS Compared to ECG 10/27/2019 12:58:58 First degree AV block now present Myocardial infarct finding still present Electronically Signed On 10-31-2019 19:36:50 CDT by Kadi Sales M.D. [email or web address] akira
[2019-10-31 10:54] LABS: Glucose Point of Care 121 mg/dL (70-110)
[2019-10-31] MEDS: predniSONE 20 mg Tablet 40 MG PO (11:04)
[2019-10-31] MEDS: levofloxacin-dextrose 5 % 750 MG/150 ML PREMIX 100 MG IV (11:51)
[2019-10-31 17:04] LABS: Glucose Point of Care 195 mg/dL (70-110)
--- NOTE | 2019-10-31 17:32 | PC.NURSE ---
patient had blood on sheets from IV start. Patient refused linen change at this time. Linens in room.
--- NOTE | 2019-10-31 17:39 | PC.NURSE ---
Per Dr Paige, possible discharge tomorrow. Patient has been SB on telemetry 45-55.
--- NOTE | 2019-10-31 17:40 | PC.NURSE ---
patient had no BM today. Patient has not complained of pain today.
--- NOTE | 2019-10-31 19:46 | PM.PN ---
Subjective Subjective: Interval history: Stable creatinine started improving overall doing fine. Medications: Reviewed: Yes Medication Review Details: Current Medications Albuterol/Ipratropium (Duoneb) 3 ml INHALATION Q6H.RESPIRATORY PRN PRN Reason: SHORTNESS OF BREATH Aspirin (Aspirin Ec) 81 mg PO DAILY [facility] Last Admin: 10/30/19 10:20 Dose: 81 mg Documented by: Dextrose (D50w) 25 ml IVP ONCE PRN; Protocol PRN Reason: hypoglycemia protocol Dextrose (D50w) 50 ml IVP PRN PRN; Protocol PRN Reason: hypoglycemia protocol Glucagon (Glucagen) 1 mg IM ONCE PRN; Protocol PRN Reason: Adult Acute Hypoglycemia Prot. Heparin Sodium (Beef Lung) (Heparin) 5,000 unit SUBCUT Q8H [facility] Last Admin: 10/31/19 06:24 Dose: 5,000 unit Documented by: Dextrose (D5w) 500 mls @ 100 mls/hr IV ONCE PRN; Protocol PRN Reason: Adult Acute Hypoglycemia Prot Sodium Chloride (Sodium Chloride 0.9%) 1,000 mls @ 60 mls/hr IV .[id number] [facility] Last Admin: 10/31/19 01:49 Dose: 60 mls/hr Documented by: Levofloxacin/Dextrose (Levaquin-D5w) 750 mg in 150 mls @ 100 mls/hr IV Q24H [facility]; Protocol Last Admin: 10/30/19 12:36 Dose: 100 mls/hr Documented by: Insulin Aspart (Novolog) 0 unit SUBCUT TIDWM [facility]; Protocol Last Admin: 10/30/19 17:11 Dose: 8 unit Documented by: Insulin Aspart (Novolog) 0 unit SUBCUT BEDTIME [facility]; Protocol Last Admin: 10/30/19 21:53 Dose: 3 unit Documented by: Insulin Detemir (Levemir) 5 unit SUBCUT BEDTIME [facility] Last Admin: 10/30/19 21:52 Dose: 5 unit Documented by: Isosorbide Mononitrate (Imdur) 15 mg PO Q12H [facility] Last Admin: 10/31/19 01:50 Dose: 15 mg Documented by: Pantoprazole Sodium (Protonix) 40 mg PO DAILY [facility] Last Admin: 10/30/19 10:21 Dose: 40 mg Documented by: Prednisone (Prednisone) 40 mg PO DAILY [facility] Last Admin: 10/30/19 10:20 Dose: 40 mg Documented by: Vitals/I&O/Wt Last Vital Signs Temp 97.7 F 10/31/19 19:41 Pulse 62 10/31/19 19:41 Resp 14 10/31/19 19:41 BP 114/56 10/31/19 19:41 Pulse Ox 96 10/31/19 19:41 10/31/19 10/31/19 10/31/19 06:59 14:59 22:59 Intake Total 864 / 2484 330 / 330 1240 / 1570 Output Total 825 / 2595 550 / 550 400 / 950 Balance 39 / -111 -220 / -220 840 / 620 Physical Exam Narrative: EXAM NARRATIVE: GENERAL: Patient is alert, awake and oriented x3. NECK: No jugular vein distension. HEENT: No cyanosis. No icterus. No pallor. HEART: Regular S1 and S2. No murmur, rub or gallop. LUNGS: Clear to auscultate bilaterally. ABDOMEN: Soft, nontender and nondistended. Positive bowel sounds. No guarding, rebound or tenderness. CENTRAL NERVOUS SYSTEM: Grossly nonfocal. EXTREMITIES: Lower extremities without edema Data : 10/31/19 04:15 10/31/19 04:15 A&P Assessment and plan (1) FADY (acute kidney injury): Today is 1.6 creatinine continues to improve. Status: Inactive (2) New onset of congestive heart failure: Remains current compensated. Patient has severe LV dysfunction. Once he will get over his chest infection as an outpatient we will proceed with left heart cath. Status: Acute (3) Hypertension: Well-controlled continue medicine Status: Acute Qualifiers: Hypertension type: essential hypertension Qualified Code(s): I10 - Essential (primary) hypertension (4) Legionella infection: As per medicine. Status: Inactive Attestations Medical Necessity Statement*: Patient require continuation of hospitalization for above defined care. Coding Level of Care Code Established Pt Acute Talent Acquisition Operations Manager for Kaelyn Guevara Patient Type Established History Expanded Problem Focused Exam Expanded Problem Focused Medical Decision Making Moderate Complexity Diagnoses FADY (acute kidney injury) N17.9 New onset of congestive heart failure I50.9 Hypertension I10 Hypertension type: essential hypertension Legionella infection A48.1
[2019-10-31 21:36] LABS: Glucose Point of Care 236 mg/dL (70-110)
--- NOTE | 2019-10-31 22:16 | PM.PN ---
Subjective Subjective: Interval history: Patient seen earlier today. Overall feeling better. He did walk with physical therapy and had no chest pain or shortness of breath. Still with occasional cough. Not requiring oxygen. I discussed the case with Dr. Leary. At this point in time given that he is not symptomatic, we will keep him on isosorbide and aspirin therapy. Plan will be for him to follow-up with Dr. Fuentes in a couple of weeks to get cardiac catheterization set up. Discussed this with him and explained that he very well may have heart disease requiring intervention again like he did the last time. Risk of worsening renal function right now with contrast administration is quite great. Patient understands. Explained to him that should he have any cardiac symptoms to speak of whatsoever he will need to return immediately upon discharge. Anticipate he should be able to be discharged tomorrow assuming no acute issues overnight. Vitals/I&O/Wt Last Vital Signs Temp 97.7 F 10/31/19 19:41 Pulse 55 L 10/31/19 19:48 Resp 17 10/31/19 19:48 BP 114/56 10/31/19 19:41 Pulse Ox 94 10/31/19 19:48 10/31/19 10/31/19 10/31/19 06:59 14:59 22:59 Intake Total 864 / 2484 330 / 330 1340 / 1670 Output Total 825 / 2595 550 / 550 500 / 1050 Balance 39 / -111 -220 / -220 840 / 620 Physical Exam Const: OTHER: Alert, oriented x3, cooperative Eye: OTHER: Pupils are reactive Neck/C-Spine: OTHER: Supple, no JVD Resp: OTHER: Improved aeration, still with scattered wheezes and rhonchi, no accessory muscle use noted Cardio: OTHER: Regular rhythm GI: OTHER: Abdomen soft, nontender Extremity: NARRATIVE EXTREMITY EXAM: No pitting edema Neuro: OTHER: Face symmetric, speech clear, moves all extremities Psych: OTHER: Normal affect Skin: OTHER: No new skin findings Data : 10/31/19 04:15 10/31/19 04:15 A&P Assessment and plan (1) Legionella pneumonia: CRP was 155 at admission, lactic acid 1.3. Diagnosed with severe sepsis at admission which has since resolved. White count is trending downward and CRP has improved to 20.9. 1 blood culture bottle with gram-positive cocci, still with identification pending Status: Acute (2) Combined systolic and diastolic congestive heart failure: New diagnosis, ejection fraction 35%, grade 3/4 diastolic dysfunction this hospital stay, no current NAOMI inhibitor nor ARB secondary to renal failure. BNP at admission was around 12,000. Status: Acute Qualifiers: Heart failure chronicity: acute on chronic Qualified Code(s): I50.43 - Acute on chronic combined systolic (congestive) and diastolic (congestive) heart failure (3) Acute renal failure: With creatinine at admission 4.7. Suspect secondary to ATN (in the setting of severe sepsis and chronic NSAID use) plus or minus effect of prerenal azotemia from volume losses related to diarrhea. Continues to improve daily Status: Acute Qualifiers: Acute renal failure type: with acute tubular necrosis Qualified Code(s): N17.0 - Acute kidney failure with tubular necrosis (4) CAD (coronary artery disease): Patient's heart rate is staying in the 50s-60s and blood pressures generally running 90s to low 100s systolic. These values are acceptable under the circumstances. Peak troponin was 104 though without significant delta. Status: Acute Qualifiers: Coronary Disease-Associated Artery/Lesion type: [place] artery [place] vs. transplanted heart: [place] heart Associated angina: without angina Qualified Code(s): I25.10 - Atherosclerotic heart disease of [place] coronary artery without angina pectoris (5) Hypertension: Controlled with medications Status: Acute Qualifiers: Hypertension type: essential hypertension Qualified Code(s): I10 - Essential (primary) hypertension (6) Diabetes: Hemoglobin A1c 8.1, fluids prediabetic only prior to admission. Currently on steroids. Difficult to ascertain if chronic complications currently beyond hyperglycemia given other acute as well as chronic issues. Reviewed with patient starting him on some insulin temporarily and he was agreeable to this. Expect he should be able to transition to oral medications once his renal function improves and we have a better idea of what is going on from a heart standpoint. Status: Acute Qualifiers: Diabetes mellitus type: type 2 Diabetes mellitus alf insulin use: without long term care administrator use Diabetes mellitus complication status: with hyperglycemia Qualified Code(s): E11.65 - Type 2 diabetes mellitus with hyperglycemia (7) Dyslipidemia: New diagnosis, statin has been held secondary to continued CK elevation and transaminitis Status: Acute (8) Hyponatremia: Improving, related to #1. Fluid restriction has been stopped by nephrology TSH was normal. Status: Acute (9) Hypokalemia: Improving, intermittently remains low Status: Acute (10) Metabolic acidosis: Secondary to renal failure Status: Resolved Additional A&P Information Hypoalbuminemia Elevated CK/rhabdomyolysis, improving Transaminitis, negative hepatitis panel, resolving, felt secondary to acute liver injury from sepsis Hyperuricemia in the setting of acute renal failure, though could have a chronic element of this Negative for COVID-19 both here as well as at [facility] prior to admission Continue oral Levaquin, will need a total of 7 to 10 days of therapy Continue prednisone On breathing treatments Follow-up pending blood culture results Infection control notified health department who has already been out to his house. We will have a new place to stay when he leaves Home NAOMI inhibitor held due to renal failure Not currently on any diuretic therapy Add allopurinol On aspirin therapy Not currently on statin secondary to a CK elevation and transaminitis but will need to consider at some point, likely in the outpatient setting Will plan for outpatient catheterization within the next couple of weeks according to conversation with Dr. Leary Monitor blood pressures and heart rate closely for further change though present values are acceptable in light of above Started on long-acting insulin last night. Will continue same dose along with sliding scale insulin. Will need to transition to oral diabetic medications once renal function improves and we have a better idea of what is going on with his heart. Appreciate nephrology and cardiology assistance in this case On PPI On subcu heparin PT has seen Supportive care otherwise Plans were discussed with patient and he was given an opportunity to ask questions Full code Attestations Medical Necessity Statement*: Requires continued inpatient stay will be follow-up pending blood cultures and other medication changes. Hopefully will be able to discharge tomorrow with close outpatient follow-up. Coding Level of Care Code Acute Auto Refinisher for Kaelyn Guevara Diagnoses Legionella pneumonia A48.1 Combined systolic and diastolic congestive heart failure I50.43 Heart failure chronicity: acute on chronic Acute renal failure N17.0 Acute renal failure type: with acute tubular necrosis CAD (coronary artery disease) I25.10 Coronary Disease-Associated Artery/Lesion type: [place] artery [place] vs. transplanted heart: [place] heart Associated angina: without angina Hypertension I10 Hypertension type: essential hypertension Diabetes E11.65 Diabetes mellitus type: type 2 Diabetes mellitus long term care administrator insulin use: without long term care administrator use Diabetes mellitus complication status: with hyperglycemia Dyslipidemia E78.5 Hyponatremia E87.1 Hypokalemia E87.6 Metabolic acidosis E87.2
[2019-11-01 00:12] VITALS: BP 137/75; PULSE 52; RESP 17; TEMP 36.4; O2SAT 96
[2019-11-01 04:25] VITALS: BP 124/63; PULSE 47; RESP 14; TEMP 36.4; O2SAT 97
[2019-11-01] MEDS: isosorbide mononitrate ER 30 mg Tablet 15 MG PO (04:35)
[2019-11-01 05:11] LABS: Blood Urea Nitrogen 42 mg/dL (6-20); Calcium 9.2 mg/dL (8.5-10.5); Carbon Dioxide 22 mmol/L (22-29); Chloride 108 mmol/L (98-107); Glomerular Filtration Rate 50.2 mL/min (90-130); Glucose 192 mg/dL (65-115); Osmolality Calculated 293 mOsm/kg (285-295); Sodium 140 mmol/L (136-145)
[2019-11-01] MEDS: levoFLOXacin 750 mg Tablet PO (05:50)
[2019-11-01] MEDS: heparin 5,000 unit/mL INJ 1 mL 5000 UNIT SUBCUT (05:50)
[2019-11-01 06:38] LABS: Glucose Point of Care 171 mg/dL (70-110)
[2019-11-01 06:53] VITALS: BP 121/82; PULSE 49; RESP 18; TEMP 36.5; O2SAT 99
--- NOTE | 2019-11-01 07:02 | P.PN_ITS ---
Subjective Subjective: Interval history: feels better. no n/v/f/c/pandey/d/sob/itching or cramps Medications: Reviewed: Yes Medication Review Details: Current Medications Albuterol/Ipratropium (Duoneb) 3 ml INHALATION Q6H.RESPIRATORY PRN PRN Reason: SHORTNESS OF BREATH Allopurinol (Zyloprim) 100 mg PO DAILY [facility] Aspirin (Aspirin Ec) 81 mg PO DAILY [facility] Last Admin: 10/31/19 09:47 Dose: 81 mg Documented by: Dextrose (D50w) 25 ml IVP ONCE PRN; Protocol PRN Reason: hypoglycemia protocol Dextrose (D50w) 50 ml IVP PRN PRN; Protocol PRN Reason: hypoglycemia protocol Glucagon (Glucagen) 1 mg IM ONCE PRN; Protocol PRN Reason: Adult Acute Hypoglycemia Prot. Heparin Sodium (Beef Lung) (Heparin) 5,000 unit SUBCUT Q8H [facility] Last Admin: 11/01/19 05:50 Dose: 5,000 unit Documented by: Dextrose (D5w) 500 mls @ 100 mls/hr IV ONCE PRN; Protocol PRN Reason: Adult Acute Hypoglycemia Prot Sodium Chloride (Sodium Chloride 0.9%) 1,000 mls @ 60 mls/hr IV .[id number] [facility] Last Admin: 10/31/19 19:40 Dose: 60 mls/hr Documented by: Levofloxacin/Dextrose (Levaquin-D5w) 750 mg in 150 mls @ 100 mls/hr IV Q24H [facility]; Protocol Last Admin: 10/31/19 11:51 Dose: 100 mls/hr Documented by: Insulin Aspart (Novolog) 0 unit SUBCUT TIDWM [facility]; Protocol Last Admin: 10/31/19 17:06 Dose: 6 unit Documented by: Insulin Aspart (Novolog) 0 unit SUBCUT BEDTIME [facility]; Protocol Last Admin: 10/31/19 21:40 Dose: 3 unit Documented by: Insulin Detemir (Levemir) 5 unit SUBCUT BEDTIME [facility] Last Admin: 10/31/19 21:41 Dose: 5 unit Documented by: Isosorbide Mononitrate (Imdur) 15 mg PO Q12H [facility] Last Admin: 11/01/19 04:35 Dose: 15 mg Documented by: Levofloxacin (Levaquin) 750 mg PO DAILY@0600 [facility] Last Admin: 11/01/19 05:50 Dose: 750 mg Documented by: Pantoprazole Sodium (Protonix) 40 mg PO DAILY [facility] Last Admin: 10/31/19 09:47 Dose: 40 mg Documented by: Prednisone (Prednisone) 40 mg PO DAILY [facility] Last Admin: 10/31/19 11:04 Dose: 40 mg Documented by: Vitals/I&O/Wt Last Vital Signs Temp 97.7 F 11/01/19 06:53 Pulse 49 L 11/01/19 06:53 Resp 18 11/01/19 06:53 BP 121/82 11/01/19 06:53 Pulse Ox 99 11/01/19 06:53 10/31/19 11/01/19 11/01/19 22:59 06:59 14:59 Intake Total 1340 / 1670 220 / 1890 Output Total 600 / 1150 550 / 1700 Balance 740 / 520 -330 / 190 Physical Exam Narrative: EXAM NARRATIVE: comfortable in bed. NARD, VSS heent- nc/at, eomi, anicteric neck no jvp lungs clear b/l heart reg, no rub, +JIMBO abd- soft, nt, nd, +BS ext no edema neuro- a,a, o x 3 pulses + b/l Data : 10/31/19 04:15 11/01/19 04:30 Micro: Microbiology 10/27/19 02:44 Blood Culture - Final Blood NO GROWTH AFTER 5 DAYS A&P Additional A&P Information 1. FADY - improving. likely was prerenal azotemia vs ATN -cr stable off of ivf -needs outpt renal and cardiology f/u -if cr remains at 1.5 mg/dl, then please give him jonna-contrats ivf for cardiac cath 2. Heart Failure - combined diastolic and systolic CHF- EF 35% and III/ IV diastolic dysfunction - per Dr Leary - can start low dose demetrius-i and monitor cr -if needs cardiac cath- okay to proceed from renal perspective, and give jonna- contrast ivf 3. pna- legioneella infection disease- abx as per hospitalist/ WBC improved to 11.7 -consider dec dose of levaquin w/ cr 1.5 mg/dl 4.Newly diagnosed diabetes - mgmt per Dr Knight 5. met acidosis from renal failure and diarrhea -improved 6. rhabdomyolysis - improved- cpk now 342 7. d/c per hospitalist- ensure pt is eating and drinking - he needs nutrition. low albumin likely from pna meds reviewed - interview and exam performed via telemed with the aid of the bedside RN Attestations Medical Necessity Statement*: per hospitalist Time Spent in Patient Care: 16 - 35 minutes Coding Level of Care Code Acute Spot Man for Kaelyn Guevara
--- NOTE | 2019-11-01 08:42 | P.DS_ITS ---
Discharge Providers Date of Admission: 10/27/19 05:03 Date of Discharge: November 01, 2019 Attending Provider at Admission: Dean Calderon MD Attending Provider at Discharge: Terra Paige MD Primary Care Provider: Shae May DO Diagnoses at Discharge Discharge Diagnosis (1) Legionella pneumonia: Status: Acute Problem details: Multilobar infiltrates, treating with Levaquin and steroids (2) Combined systolic and diastolic congestive heart failure: Status: Acute Problem details: Ejection fraction 35% with grade 3/4 diastolic dysfunction in October 2019 Qualifiers: Heart failure chronicity: acute on chronic Qualified Code(s): I50.43 - Acute on chronic combined systolic (congestive) and diastolic (congestive) heart failure (3) Acute renal failure: Status: Acute Problem details: Peak creatinine 4.7, creatinine at discharge down to 1.5 Qualifiers: Acute renal failure type: with acute tubular necrosis Qualified Code(s): N17.0 - Acute kidney failure with tubular necrosis (4) CAD (coronary artery disease): Status: Acute Problem details: PCI x3 in past, needs repeat cardiac catheterization, troponin this hospital stay around 100 but without significant delta. Heart rate is normally in the 50s to 60s. Qualifiers: Coronary Disease-Associated Artery/Lesion type: [place] artery [place] vs. transplanted heart: [place] heart Associated angina: without angina Qualified Code(s): I25.10 - Atherosclerotic heart disease of [place] coronary artery without angina pectoris (5) Hypertension: Status: Acute Problem details: Controlled on current medications Qualifiers: Hypertension type: essential hypertension Qualified Code(s): I10 - Essential (primary) hypertension (6) Diabetes: Status: Acute Problem details: Type II, new onset, started on insulin with plan to transition to orals once cardiac and renal issues are further delineated or improved. 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 Has not yet been started on statin therapy secondary to elevated CK level. Will need to be started soon. (8) Hyponatremia: Status: Resolved (9) Hypokalemia: Status: Resolved (10) Metabolic acidosis: Status: Resolved (11) Hyperuricemia: Status: Acute Reason for Visit Reason for Visit: abd pain Hospital Course Hospital Course: Mr. Muir was admitted with multiple symptoms developing over the preceding several weeks. 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 This was identified via urine antigen testing. He was treated with Levaquin and prednisone and has had improvement. Initially also covered with azithromycin. Initial CRP was 154 though improved to 20 later in hospital stay.. Will need follow-up chest x-ray to ensure clearing and potential referral to pulmonology depending on clinical course. He had acute renal failure and was seen by nephrology during the hospital stay. This was felt secondary to ATN. Peaked creatinine was 4.7 and was improved to 1.5 at the time of discharge. Medications were held or not started in part due to renal dysfunction. This includes holding of his home lisinopril. NAOMI inhibitor should be able to be restarted in the coming weeks as renal function continues to improve. He was identified as having combined systolic and diastolic heart failure with an ejection fraction of 30%. In addition he had an elevated troponin though no significant delta. Cardiology was consulted. He has a history of prior PCI. He needs an arteriogram again. He did not demonstrate any symptoms of chest pain with ambulation and ultimately it was decided to discharge patient home with outpatient follow-up in the next couple of weeks to arrange arteriogram once his renal function and pulmonary status have improved a bit more. This was explained to the patient and he expressed understanding of need to come back into the emergency room immediately should he have any chest pain or other symptoms suggestive of acute cardiac event. He was given an opportunity to ask questions about this. He had dyslipidemia but statins were held due to elevation in transaminases and CK level. Peak CK was around 3400 and was down to around 300 prior to discharge. Anticipate initiation of this can begin in the next couple of weeks as well. Patient's heart rate was in the 40s to 50s and blood pressure was generally 100s to 120s systolic. He is currently on isosorbide and aspirin therapy. He has not required diuresis to date. Further cardiac management will depend on outcome from arteriogram. Patient was identified as having diabetes mellitus during this hospital stay with a hemoglobin A1c of 8.1. For now he has been started on once daily insulin therapy and provided glucometer and glucometer strips prescription. Once his renal function improves and cardiac issues are further delineated, we should be able to initiate oral medications for this. Providing some education on diabetes and his comorbid conditions with discharge. Allopurinol was another medication initiated due to hyperuricemia. Explained to the patient that he has multiple new medical problems which will require ongo ing management and expressed importance of regular follow-up. Overall patient was feeling better though still weak and was felt stable for discharge home. He continues to have some scattered rhonchi and occasional wheeze on exam. He has a bradycardic but regular rhythm. No lower extremity edema. Not requiring oxygen. Discharge Data Data Completed and Pending: Completed Studies During Hospitalization Category Date Time Status CT chest abd pel wo con Urgent Cat Scan 10/27/19 02:34 Completed XR chest 1V mateo ble [id number] Stat Exams 10/27/19 01:37 Completed CV echo complete* [id number] Routine Ultrasound 10/27/19 06:12 Completed Pending at discharge Category Date Time Status Blood Culture Sta t Lab 10/27/19 02:44 Results Comprehensive Met abolic Panel AM LA BS Lab 11/02/19 04:00 Ordered Comprehensive Met abolic Panel AM LA BS Lab 11/03/19 04:00 Ordered Comprehensive Met abolic Panel AM LA BS Lab 11/04/19 04:00 Ordered Labs from last 24 hours 11/01/19 11/01/19 10/31/19 06:30 04:30 21:31 Sodium 140 Potassium 4.0 Chloride 108 H Carbon Dioxide 22 Anion Gap 14.0 BUN 42 H Creatinine 1.5 H GFR Calculation 50.2 L Glucose 192 H POC Glucose 171 236 Calculated Osmolal ity 293 Calcium 9.2 10/31/19 10/31/19 16:54 10:43 Sodium Potassium Chloride Carbon Dioxide Anion Gap BUN Creatinine GFR Calculation Glucose POC Glucose 195 121 Calculated Osmolal ity Calcium Imaging^: Echo: Radiologist's impression: CONCLUSIONS 1-Moderately increased left ventricular cavity size. Severely decreased left ventricular systolic function. Global left ventricular hypokinesis. Left ventricular ejection fraction is estimated at 35 %. Grade III/IV diastolic dysfunction (restrictive filling pattern), severely elevated filling pressures. 2-There is no pericardial effusion. 3-The right ventricle is normal in size and function. RVSP could not be calculated due to incomplete tricuspid regurgitation velocity profile. 4-There are no prior echocardiogram studies to compare. Other CT: Radiologist's impression: PROCEDURE INFORMATION: Exam: CT Chest Without Contrast Exam date and time: 10/27/2019 2:35 AM Age: 49 years old Clinical indication: Abdominal tenderness; Abdominal pain; Generalized; Cough and shortness of breath; Chest pain; Type not specified; Prior surgery; Surgery type: Stents; Additional info: Pneumonia TECHNIQUE: Imaging protocol: Computed tomography of the chest without contrast. Radiation optimization: All CT scans at this facility use at least one of these dose optimization techniques: automated exposure control; mA and/or kV adjustment per patient size (includes targeted exams where dose is matched to clinical indication); or iterative reconstruction. COMPARISON: No relevant prior studies available. RADIATION DOSE METRICS: Total DLP: 2598.83 mGy-cm FINDINGS: Lungs: There is extensive consolidation and confluent areas of geographic ground-glass opacity in the upper and lower lobes bilaterally. Pleural space: There is no pleural effusion or pneumothorax. Heart: There is mild cardiac enlargement. Coronary calcification and stents noted. There is no pericardial effusion. Aorta: There is mild aortic atherosclerotic disease. Lymph nodes: There is no mediastinal or hilar lymphadenopathy. Bones/joints: Bones are unremarkable. Soft tissues: The extrathoracic soft tissues are unremarkable. IMPRESSION: 1. Bilateral multilobar pneumonia. 2. Cardiac enlargement. PROCEDURE INFORMATION: Exam: CT Abdomen And Pelvis Without Contrast Exam date and time: 10/27/2019 2:35 AM Age: 49 years old Clinical indication: Abdominal tenderness; Abdominal pain; Generalized; Cough and shortness of breath; Chest pain; Type not specified; Prior surgery; Surgery type: Stents; Additional info: Pneumonia TECHNIQUE: Imaging protocol: Computed tomography of the abdomen and pelvis without contrast. Radiation optimization: All CT scans at this facility use at least one of these dose optimization techniques: automated exposure control; mA and/or kV adjustment per patient size (includes targeted exams where dose is matched to clinical indication); or iterative reconstruction. COMPARISON: No relevant prior studies available. RADIATION DOSE METRICS: Total DLP: 2598.83 mGy-cm FINDINGS: Liver: The liver is normal. Gallbladder and bile ducts: The gallbladder is normal. There is no biliary dilation. Pancreas: The pancreas is unremarkable. Spleen: The spleen is mildly enlarged. Adrenals: The adrenal glands are unremarkable. Kidneys and ureters: The kidneys are unremarkable. No hydronephrosis or stones. No ureteral dilation. Stomach and bowel: The stomach is decompressed, preventing meaningful evaluation of wall thickness. The small bowel is nondilated. There is no sign of inflammation. Colon is gas distended. The wall is thin. There is no sign of inflammation. Appendix: The appendix is normal. Intraperitoneal space: There is no free air or significant intraperitoneal free fluid. Vasculature: There is moderate aortic atherosclerotic disease. Lymph nodes: There is no lymphadenopathy in the retroperitoneum, mesentery, pelvis or inguinal regions. Bladder: The urinary bladder is unremarkable. Reproductive: The prostate and seminal vesicles are unremarkable. Bones/joints: There is moderate degenerative disease in the lower lumbar spine. The pelvis and hips are intact. Soft tissues: The abdominal wall is intact. CT/CT chest abd pel wo con IMPRESSION: 1. No acute findings. 2. Incidental findings above. CXR: Radiologist's impression: FINDINGS: Alveolar infiltrate is seen in the right upper lung and in the left lower lung. No evidence to suggest tuberculosis on this study. The right hemidiaphragm is elevated. The heart is enlarged. The hilum's apices are normal. XR/XR chest 1V portable [id number] IMPRESSION: Alveolar infiltrates in the right upper lung and left lower lung Cardiomegaly There is elevation of the right hemidiaphragm Addt'l Data from Hospital Stay: Laboratory Tests 10/27/19 10/27/19 10/27/19 01:26 01:26 01:26 Hemoglobin A1c Lactic Acid Uric Acid 10.8 H Total Bilirubin AST 202 H ALT 184 H Alkaline Phosphata se Creatine Kinase Troponin I 6 Hour Troponin I Hi Sens Del Troponin T Baselin e Troponin T 120 Min [place] Delta Troponin T C-Reactive Protein NT-Pro-B Natriuret Pep 11321 H Triglycerides 256 H Cholesterol 118 LDL Cholesterol, C alc 57 HDL Cholesterol 10 L LDL/HDL Ratio 5.70 H Cholesterol/HDL Ra karen 11.80 H Lipase 41 TSH 1.23 Hepatitis A IgM Ab Hep Bs Antigen Hepatitis C Antibo dy 10/27/19 10/27/19 10/27/19 06:55 06:55 06:55 Hemoglobin A1c Lactic Acid Uric Acid Total Bilirubin AST ALT Alkaline Phosphata se Creatine Kinase Troponin I 6 Hour Troponin I Hi Sens Del Troponin T Baselin e Troponin T 120 Min [place] Delta Troponin T C-Reactive Protein NT-Pro-B Natriuret Pep Triglycerides Cholesterol LDL Cholesterol, C alc HDL Cholesterol LDL/HDL Ratio Cholesterol/HDL Ra karen Lipase TSH Hepatitis A IgM Ab Non-reactive Hep Bs Antigen Non-reactive Hepatitis C Antibo dy Non-reactive 10/27/19 10/27/19 10/27/19 10:45 10:45 13:18 Hemoglobin A1c Lactic Acid Uric Acid Total Bilirubin AST ALT Alkaline Phosphata se Creatine Kinase 3621 H* Troponin I 6 Hour Troponin I Hi Sens Del Troponin T Baselin e 104 H* Troponin T 120 Min [place] 102.7 H Delta Troponin T -1.3 L C-Reactive Protein NT-Pro-B Natriuret Pep Triglycerides Cholesterol LDL Cholesterol, C alc HDL Cholesterol LDL/HDL Ratio Cholesterol/HDL Ra karen Lipase TSH Hepatitis A IgM Ab Hep Bs Antigen Hepatitis C Antibo dy 10/27/19 10/27/19 10/27/19 13:18 16:15 18:00 Hemoglobin A1c Lactic Acid 1.2 Uric Acid Total Bilirubin AST ALT Alkaline Phosphata se Creatine Kinase Troponin I 6 Hour 104.1 H Troponin I Hi Sens Del 0.1 Troponin T Baselin e Troponin T 120 Min [place] Delta Troponin T C-Reactive Protein 154.9 H NT-Pro-B Natriuret Pep Triglycerides Cholesterol LDL Cholesterol, C alc HDL Cholesterol LDL/HDL Ratio Cholesterol/HDL Ra karen Lipase TSH Hepatitis A IgM Ab Hep Bs Antigen Hepatitis C Antibo dy 10/28/19 10/31/19 10/31/19 04:32 04:15 04:15 Hemoglobin A1c 8.1 H Lactic Acid Uric Acid Total Bilirubin 0.5 AST 22 ALT 78 H Alkaline Phosphata se 31 L Creatine Kinase 342 H* Troponin I 6 Hour Troponin I Hi Sens Del Troponin T Baselin e Troponin T 120 Min [place] Delta Troponin T C-Reactive Protein NT-Pro-B Natriuret Pep Triglycerides Cholesterol LDL Cholesterol, C alc HDL Cholesterol LDL/HDL Ratio Cholesterol/HDL Ra karen Lipase TSH Hepatitis A IgM Ab Hep Bs Antigen Hepatitis C Antibo dy 10/31/19 10/31/19 04:15 04:15 Hemoglobin A1c Lactic Acid Uric Acid 7.3 H Total Bilirubin AST ALT Alkaline Phosphata se Creatine Kinase Troponin I 6 Hour Troponin I Hi Sens Del Troponin T Baselin e Troponin T 120 Min [place] Delta Troponin T C-Reactive Protein 20.9 H NT-Pro-B Natriuret Pep Triglycerides Cholesterol LDL Cholesterol, C alc HDL Cholesterol LDL/HDL Ratio Cholesterol/HDL Ra karen Lipase TSH Hepatitis A IgM Ab Hep Bs Antigen Hepatitis C Antibo dy Vitals: Last Vital Signs Temp 97.7 F 11/01/19 06:53 Pulse 49 L 11/01/19 06:53 Resp 18 11/01/19 06:53 BP 121/82 11/01/19 06:53 Pulse Ox 99 11/01/19 06:53 Discharge Plan Discharge Patient Disposition: Home, Self-Care Condition: Stable Prescriptions: New (DME) BD Insulin Syringe 0.3 mL 29 gauge x 1/2 syringe See Rx Instructions .ROUTE .MEDSUPPLY Qty: 60 RF: 0 (DME) glucometer See Rx Instructions .Route .MEDSUPPLY Qty: 1 RF: 0 (DME) glucometer strips See Rx Instructions .Route .MEDSUPPLY Qty: 100 RF: 0 prednisone 20 mg Tablet 40 mg PO DAILY Qty: 4 RF: 0 Levemir U-100 Insulin 100 unit/mL Solution 6 unit SUBCUT BEDTIME Qty: 10 RF: 0 allopurinol 100 mg Tablet 100 mg PO DAILY Qty: 30 RF: 1 aspirin 81 mg Tablet,Delayed Release (Dr/Ec) 81 mg PO DAILY Qty: 30 RF: 1 isosorbide mononitrate 30 mg Tablet Extended Release 24 Hr 15 mg PO Q12H Qty: 60 RF: 1 levofloxacin 750 mg Tablet 750 mg PO DAILY@0600 Qty: 4 RF: 0 albuterol sulfate [ProAir HFA] 90 mcg/actuation HFA aerosol inhaler 2 inh INHALATION QID PRN (Reason: shortness of breath or wheezing) Qty: 18 RF: 0 Held lisinopril 10 mg Tablet 10 mg PO BID RF: 0 Hold Instructions: Until resumed by cardiology. Held secondary to renal failure. Referrals: Dean Leary MD [Physician] - 2 weeks (Will need to schedule arteriogram at this visit) Shae May DO [Primary Care Provider] - 4-7 days (Hospital follow up) Discharge Diet: Cardiac and Diabetic Discharge Activity: Increase activity as tolerated Patient Instructions: Heart Failure (DC), Coronary Artery Disease (DC), Acute Kidney Injury (DC), Heart Healthy Diet (DC), How to Check Your Blood Sugar (DC), Diabetes Mellitus Type 2 in Adults (DC), Cholesterol and Your Health (GEN), Legionnaires Disease (DC) Activity Restrictions/Additional Instructions: You were admitted after not feeling well for several weeks with weakness, shortness of breath, diarrhea and low-grade fevers with sweats. COVID-19 testing was done and coronavirus was not detected. You had bilateral infiltrates and ultimately were found to have evidence of Legionella pneumonia/Legionnaires' disease. You have been treated with Levaquin with a plan to complete a 10-day course. Additionally you have received some steroids. I have ordered an inhaler for you to use as needed for shortness of breath. Health Department was notified and has already been in contact with you regarding Legionnare's diagnosis. Recommend a repeat chest x-ray in 2 to 4 weeks. If infiltrates have not improved consideration should be given to follow-up with pulmonology. At the time of admission you had significant acute renal failure with creatinine at 4.7. This is felt secondary to ATN. There may be a component of chronic kidney disease underlying. Your renal function will need to be periodically checked going forward. Creatinine was down to 1.5 at the time of discharge. Nephrology followed while you were here. Cardiology was also consulted as you had evidence of troponin elevation without significant delta along with evidence of combined systolic and diastolic CHF. Ejection fraction was at 35% which is low. He has a known history of prior cardiac intervention and concern is that he may have recurrent cardiac disease. Currently you are on aspirin and isosorbide. Other medications will need to be added as your renal function improves, including resumption of lisinopril and possibly other medications. Your lisinopril is currently held due to acute renal failure. Your baseline heart rate is typically in the 50s presently and blood pressures have been ranging from 100-1 20 systolic over 50s to 70s diastolic. You were experiencing no chest pain with ambulation. Respiratory symptoms improved. In discussion with Dr. Leary, decision was made to discharge you home with outpatient follow-up to arrange a cardiac catheterization in the next couple of weeks. Should you have any recurrent chest pain, increased shortness of breath or other concerning symptoms please return to the emergency room for evaluation. Blood sugars were elevated C was found to be 8.1. At this point in time I have started you on some insulin once a day. Current dose is 6 units at bedtime. With this regimen, your blood sugars have ranged from 121-236. When you come off of prednisone in a few days, I expect your blood sugars to improve. At that time please stop insulin therapy to 5 units at bedtime. Ultimate goal is to get you on an oral medication once your renal function improves and we have sorted out your acute cardiac issues a bit further. You need to follow-up with your primary care provider closely in regards to this. Cholesterol was checked and you were found to have triglycerides at 256, total cholesterol at 118, LDL at 57 and an HDL that was very low at 10. You had some mild elevation in liver enzymes and CK level while you were here so statin therapy has not been started. It will need to be considered in the near future. CK was 342 on October 30 down from a peak of 3621. Transaminases had normalized. Uric acid level was elevated at admission greater than 10. Recheck later in hospital stay was around 7. Allopurinol has been started for this. Increase your activity as tolerated. You may not return to work until medically cleared by cardiology. You have multiple acute as well as newly identified chronic medical problems which will require consistent follow-up with doctors and blood tests, long with regular use of medications for maximal management. If you have any questions about your medical conditions or difficulty paying for medications/medical care, please discuss with your providers so we can optimize treatment to best meet your needs. While your medical conditions are manageable, without treatment and follow-up they can progressively worsen and lead to premature if not addressed. Strongly encourage you to continue your efforts at smoking cessation for your overall cardiac and pulmonary health. 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
[2019-11-01] MEDS: predniSONE 20 mg Tablet 40 MG PO (09:01)
[2019-11-01] MEDS: lisinopril 2.5 mg Tablet PO (09:01)
[2019-11-01] MEDS: allopurinol 100 mg Tablet PO (09:02)
[2019-11-01] MEDS: aspirin 81 mg EC Tablet PO (09:02)
[2019-11-01] MEDS: pantoprazole DR 40 mg Tablet PO (09:02)
[2019-11-01 09:09] VITALS: PULSE 59; RESP 18; O2SAT 96
[2019-11-01 10:03] VITALS: BP 121/82; PULSE 59; RESP 18; TEMP 36.5; O2SAT 96
--- NOTE | 2019-11-01 10:05 | PC.NURSE ---
no demetrius/arb de to renal insuff
--- NOTE | 2019-11-01 10:44 | PC.NURSE ---
discharge instructions given and explained.pt verb understanding of instructions.medications ph[place] to [facility]
--- NOTE | 2019-11-01 16:18 | PC.SOCIAL ---
Trying to fill out Short Term Disability paperwork. Tried to reach patient to get a verbal to fill out release of information to send dx information related to hospitalization but unable to reach. Was told that the [phone] number this individual is no longer associated with him per her. Called employer and given number [phone] for him and [phone] as Girlfriend. Called his number and no answer and not accepting messages. Called girlfriend and left message to have patient call me. Patient did call and was able to verbally give approval for release of information to be given for diagnosis for short term disability. Alexander the manager community also verified by phone was okay to provide information. All information explained to patient. Faxed information to .
--- NOTE | 2019-11-06 09:46 | PC.SOCIAL ---
Significant other called this nurse cell phone Wednesday evening after 7pm. She was very concerned that pt insulin vial was in the butter slot of fridge and when fridge was opened it fell out and burst. She was unable to reach out to PCP since was a weekend. Asked Dr Paige if Levemir could be reordered and she agreed. Wednesday am at 10am Levemir 6 units at HS was called in by this nurse to [facility] pharmacy in [place] per S.O. request since [facility] was not open on Wednesday. One vial replacement ordered no refills. Encouraged S.O. to consider insulin pens in the future due to ease of use and less likely to break etc. She was appreciative of the help.
== END 2019-11-01 10:44 | disposition home or self-care (01) | DRG 177 ==
LOC: ER 02:35 → ICU 05:37 → CSU 10-28 19:00
PROVIDERS: Emergency Medicine; Internal Medicine; Internal Medicine Nephrology; Physician Assistant; Admitting Provider Internal Medicine; Family Provider Family Medicine; PCP Family Medicine; Visit Provider Hospitalist
DX: A48.1 Legionnaires' disease (principal); I50.43 Acute on chronic combined systolic (congestive) and diastolic (congestive) heart failure; N17.0 Acute kidney failure with tubular necrosis; E87.2 Acidosis; E87.1 Hypo-osmolality and hyponatremia; I13.0 Hypertensive heart and chronic kidney disease with heart failure and stage 1 through stage 4 chronic kidney disease, or unspecified chronic kidney disease; J18.9 Pneumonia, unspecified organism; I25.10 Atherosclerotic heart disease of native coronary artery without angina pectoris; Z95.5 Presence of coronary angioplasty implant and graft; E79.0 Hyperuricemia without signs of inflammatory arthritis and tophaceous disease; E87.6 Hypokalemia; E11.65 Type 2 diabetes mellitus with hyperglycemia; E78.5 Hyperlipidemia, unspecified; Z87.891 Personal history of nicotine dependence; N18.9 Chronic kidney disease, unspecified; E11.22 Type 2 diabetes mellitus with diabetic chronic kidney disease
CPT/HCPCS: 12345; 36415; 36416; 36600; 71045; 71250; 74176; 80048; 80053; 80061; 80306; 81001; 82044; 82436; 82550; 82570; 82803; 82962; 83036; 83605; 83690; 83735; 83880; 83930; 83935; 84100; 84133; 84156; 84300; 84443; 84484; 84540; 84550; 85025; 86140; 86403; 86709; 86803; 87040; 87205; 87340; 87449; 87635; 93005; 93306; 96372; 96375; 97161; 99283; J0456; J0696; J1644; J1815; J1956; J2405; J2930; J3480; J7030; J7050; J7512; Q0144; Q3014

== ENCOUNTER 2019-11-08 14:13 | Inpatient (IN) | payer OTHER, SELFPAY ==
[2019-11-08] VITALS (17 sets, daily range): BP systolic 88–156; BP diastolic 48–95; PULSE 59–148; RESP 11–22; TEMP 36.4–38.3; O2SAT 92–97; BMI 30.8
--- NOTE | 2019-11-08 14:35 | ED_ITS ---
HPI - Fever General: Chief Complaint: Fever Stated Complaint: fever Time Seen by Provider: 11/08/19 14:35 History of Present Illness: HPI Narrative: 49 yo is here emergency room with complaint of fever shortness of breath. Fever began last night today he had a T-max of 102 temporal thermometer. He was recently hospitalized for legionnaires disease felt said he felt quite a bit better when he left with and has been progressively worse since he left he has basically been sitting on a couch with his legs up he has had an increase in cough or lately but is been nonproductive he also has had some chest pain he describes it as twinging last for a few seconds kind of a stabbing sensation it does briefly radiate into his left arm down into his hand but resolves within seconds. He states the chest pain is almost primarily always associated with a coughing fit. Had a couple of episodes where his cough to the point of vomiting and been nauseous has not had any diarrhea. He does have a little suprapubic abdominal pain as well and some pain where he had his Lovenox shots he denies any dysuria or hematuria. MD elicited complaint: fever Onset (ago): day(s) Context: other(s) with similar symptoms, recent antibiotic use and recent hospitalization (Pneumonia for legionnaires disease) Exacerbating factors: other (Offing) Relieving factors: rest Associated symptoms: Reports abdominal pain, chest pain, cough, myalgias and nausea; Deny chills, dysuria, extremity pain, headache(s) or nasal congestion Treatments prior to arrival fever: none Review of Systems Const: Denies: fever(s), chills, body aches, change in appetite, fatigue or malaise ENMT: Denies: throat pain, ear or mastoid pain, nasal discharge or nasal congestion Card: Reports: chest pain Resp: Denies: dyspnea, productive cough or non-productive cough GI: Reports: abdominal pain and nausea : Denies: dysuria Musc: Denies: extremity pain Skin/Breast: Denies: rash or pruritus Neuro: Denies: headache(s) PFS ED PFSH: Medical History Combined systolic and diastolic congestive heart failure Coronary artery disease PCI x3 Diabetes Dyslipidemia Hypertension Hyperuricemia Morbid obesity Surgical History Hx of cardiac cath Family History Other Hypertension Social History Smoking and tobacco status: former smoker Quit status (tobacco): has quit using tobacco Former quit date comment: Quit smoking 1 month ago because of shortness of breath and orthopnea Alcohol intake: never Lives independently: Yes Housing: House 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 Physical Exam Const: COMMON NORMALS: no acute distress GENERAL APPEARANCE: cooperative and comfortable ORIENTATION/CONSCIOUSNESS: Yes awake, Yes oriented to person, Yes oriented to place and Yes oriented to time HENMT: COMMON NORMALS: normocephalic, atraumatic, hearing grossly normal bilaterally, external ears normal, EAC's normal, TM's normal bilaterally, Normal nasal mucous membranes and turbinates present, moist oral mucous membranes and oropharynx normal HEAD & SCALP: normocephalic and atraumatic NOSE: Normal nasal mucous membranes and turbinates present EXTERNAL EAR: Yes external ears normal EXTERNAL AUDITORY CANAL: EAC's normal TYMPANIC MEMBRANE: TM's normal bilaterally Eye: COMMON NORMALS: Equal, round and reactive pupils present, EOMs intact bilaterally, conjunctivae normal and no scleral icterus CONJUNCTIVA: Yes conjunctivae normal PUPIL: Yes Equal, round and reactive pupils present Neck/C-Spine: COMMON NORMALS: full ROM, no lymphadenopathy, supple and no JVD Lymph: LYMPHATIC: no lymphadenopathy noted and no lymphedema noted Resp: COMMON NORMALS: normal respiratory effort, No retractions, No use of accessory muscles and clear to auscultation bilaterally AUSCULTATION: clear to auscultation bilaterally Cardio: COMMON NORMALS: no JVD, regular rate, regular rhythm and No murmurs present (Cardio) RATE: regular rate RHYTHM: regular rhythm GI: COMMON NORMALS: Soft to palpation and No hepatosplenomegaly present AUSCULTATION: Yes normoactive bowel sounds PALPATION: Yes Soft to palpation, No Tenderness to palpation present (GI), No Guarding due to palpation present (GI) and Yes No hepatosplenomegaly present Extremity: COMMON NORMALS: normal to inspection, capillary refill normal, no clubbing, cyanosis or edema, no calf tenderness and no pedal edema Neuro: SENSORIUM/ORIENTATION: Yes oriented to person, Yes oriented to place and Yes oriented to time Skin: COMMON NORMALS: no rashes or lesions noted GENERAL SKIN EXAM: no rashes or lesions noted Course Vital Signs: Vital signs: Vital Signs Temperature 97.7 F 11/10/19 15:59 Pulse Rate 57 L 11/10/19 15:59 Respiratory Rate 20 H 11/10/19 15:59 Blood Pressure 122/85 11/10/19 15:59 Pulse Oximetry 98 11/10/19 15:59 MDM - Fever MDM Narrative: Medical decision making narrative: Reviewed findings with the patient will admit for fever of unknown origin diabetes and sepsis with an elevated troponin hospitalist manage. Lab Data: Labs: Lab Results 11/08/19 11/08/19 11/08/19 Range/Units 14:42 14:42 14:42 WBC 14.5 H (4.0-10.0) 10^3/ uL RBC 4.12 (4.1-5.3) 10^6/u L Hgb 12.3 (11.7-16.6) g/dL Hct 37.1 L (42.0-52.0) % MCV 90.0 (80-94) fL MCH 29.9 (28.0-34.0) pg MCHC 33.2 (30.0-36.0) g/dL RDW 13.5 (12.1-15.1) % Plt Count 174 (130-400) 10^3/c mm MPV 10.0 (7.4-10.4) fL Neut % (Auto) 96.1 % Lymph % (Auto) 1.5 % [place] % (Auto) 1.8 % Eos % (Auto) 0.2 % Baso % (Auto) 0.1 % Neut # (Auto) 13.9 H (1.8-7.7) 10^3/u L Lymph # (Auto) 0.2 L (0.8-4.8) 10^3/u L [place] # (Auto) 0.3 (0.2-0.9) 10^3/u L Eos # (Auto) 0.0 (0.0-0.8) 10^3/u L Baso # (Auto) 0.0 (0.0-0.1) 10^3/u L Nucleated RBC % (a uto) 0 % Nucleated RBCs # 0.0 /100WBC Specimen Type Sample Site ABG pH (7.35-7.45) ABG pCO2 (35-45) mmHg ABG pO2 (80.0-100.0) mmH g ABG HCO3 (22-26) mmol/L ABG O2 Saturation ABG Base Excess (-2.0-2.0) mmol/ L Jose Test A-a O2 Gradient (5-10) mmHg Hematocrit (42-52) % Hgb O2 Saturation (95-100) % Carboxyhemoglobin (0.4-20.1) %THgb Methemoglobin (0.4-1.5) % Total Hemoglobin (14-18) g/dL Ionized Calcium (1.1-1.4) mmol/L O2 Delivery Device FiO2 % Sustainable Design Coordinator ID Sodium 133 L (136-145) mmol/L Potassium 4.5 (3.5-5.1) mmol/L Chloride 97 L (98-107) mmol/L Carbon Dioxide 26 (22-29) mmol/L Anion Gap 14.5 (5-19) BUN 20 (6-20) mg/dL Creatinine 1.4 H (0.7-1.2) mg/dL GFR Calculation 54.3 L (90-130) mL/min Glucose 164 H (65-115) mg/dL Calculated Osmolal ity 276 L (285-295) mOsm/k g Lactate 1.1 (0.5-2.2) mmol/L Calcium 8.6 (8.5-10.5) mg/dL Total Bilirubin 1.5 H (0.15-1.2) mg/dL AST 19 (0-40) U/L ALT 30 (0-41) U/L Alkaline Phosphata se 40 (40-130) IU/L Creatine Kinase 57 (39-308) U/L Troponin T Baselin e (0-15) ng/L Total Protein 5.6 L (6.6-8.7) g/dL Albumin 3.4 L (3.5-5.2) g/dL Globulin 2.2 (1.3-4.6) g/dL Lipase 40 (13-60) U/L Urine Color (Yellow) Urine Appearance (CLEAR) Urine pH (5-7) Ur Specific Gravit y (1.005-1.030) Urine Protein (Negative) Urine Glucose (UA) (Normal) Urine Ketones (Negative) Urine Blood (Negative) Urine Nitrate (Negative) Urine Bilirubin (NEGATIVE) Urine Urobilinogen (Negative) mg/dL Ur Leukocyte Meg ase (Negative) Serum Ketones (Negative) 11/08/19 11/08/19 11/08/19 Range/Units 14:42 14:42 14:56 WBC (4.0-10.0) 10^3/ uL RBC (4.1-5.3) 10^6/u L Hgb (11.7-16.6) g/dL Hct (42.0-52.0) % MCV (80-94) fL MCH (28.0-34.0) pg MCHC (30.0-36.0) g/dL RDW (12.1-15.1) % Plt Count (130-400) 10^3/c mm MPV (7.4-10.4) fL Neut % (Auto) % Lymph % (Auto) % [place] % (Auto) % Eos % (Auto) % Baso % (Auto) % Neut # (Auto) (1.8-7.7) 10^3/u L Lymph # (Auto) (0.8-4.8) 10^3/u L [place] # (Auto) (0.2-0.9) 10^3/u L Eos # (Auto) (0.0-0.8) 10^3/u L Baso # (Auto) (0.0-0.1) 10^3/u L Nucleated RBC % (a uto) % Nucleated RBCs # /100WBC Specimen Type Sample Site ABG pH (7.35-7.45) ABG pCO2 (35-45) mmHg ABG pO2 (80.0-100.0) mmH g ABG HCO3 (22-26) mmol/L ABG O2 Saturation ABG Base Excess (-2.0-2.0) mmol/ L Jose Test A-a O2 Gradient (5-10) mmHg Hematocrit (42-52) % Hgb O2 Saturation (95-100) % Carboxyhemoglobin (0.4-20.1) %THgb Methemoglobin (0.4-1.5) % Total Hemoglobin (14-18) g/dL Ionized Calcium (1.1-1.4) mmol/L O2 Delivery Device FiO2 % Sustainable Design Coordinator ID Sodium (136-145) mmol/L Potassium (3.5-5.1) mmol/L Chloride (98-107) mmol/L Carbon Dioxide (22-29) mmol/L Anion Gap (5-19) BUN (6-20) mg/dL Creatinine (0.7-1.2) mg/dL GFR Calculation (90-130) mL/min Glucose (65-115) mg/dL Calculated Osmolal ity (285-295) mOsm/k g Lactate (0.5-2.2) mmol/L Calcium (8.5-10.5) mg/dL Total Bilirubin (0.15-1.2) mg/dL AST (0-40) U/L ALT (0-41) U/L Alkaline Phosphata se (40-130) IU/L Creatine Kinase (39-308) U/L Troponin T Baselin e 291 H* (0-15) ng/L Total Protein (6.6-8.7) g/dL Albumin (3.5-5.2) g/dL Globulin (1.3-4.6) g/dL Lipase (13-60) U/L Urine Color Yellow (Yellow) Urine Appearance Clear (CLEAR) Urine pH 7 (5-7) Ur Specific Gravit y 1.005 (1.005-1.030) Urine Protein Neg (Negative) Urine Glucose (UA) Norm (Normal) Urine Ketones Negative (Negative) Urine Blood Neg (Negative) Urine Nitrate Negative (Negative) Urine Bilirubin Neg (NEGATIVE) Urine Urobilinogen Norm (Negative) mg/dL Ur Leukocyte Meg ase Negative (Negative) Serum Ketones Negative (Negative) 11/08/19 Range/Units 15:06 WBC (4.0-10.0) 10^3/ uL RBC (4.1-5.3) 10^6/u L Hgb (11.7-16.6) g/dL Hct (42.0-52.0) % MCV (80-94) fL MCH (28.0-34.0) pg MCHC (30.0-36.0) g/dL RDW (12.1-15.1) % Plt Count (130-400) 10^3/c mm MPV (7.4-10.4) fL Neut % (Auto) % Lymph % (Auto) % [place] % (Auto) % Eos % (Auto) % Baso % (Auto) % Neut # (Auto) (1.8-7.7) 10^3/u L Lymph # (Auto) (0.8-4.8) 10^3/u L [place] # (Auto) (0.2-0.9) 10^3/u L Eos # (Auto) (0.0-0.8) 10^3/u L Baso # (Auto) (0.0-0.1) 10^3/u L Nucleated RBC % (a uto) % Nucleated RBCs # /100WBC Specimen Type Arterial Sample Site Radial, left ABG pH 7.54 H (7.35-7.45) ABG pCO2 30.4 L (35-45) mmHg ABG pO2 60.6 L (80.0-100.0) mmH g ABG HCO3 26.0 (22-26) mmol/L ABG O2 Saturation 94.4 ABG Base Excess 4.0 H (-2.0-2.0) mmol/ L Jose Test Pos A-a O2 Gradient 50.0 H (5-10) mmHg Hematocrit 38.3 L (42-52) % Hgb O2 Saturation 91.8 L (95-100) % Carboxyhemoglobin 1.9 (0.4-20.1) %THgb Methemoglobin 0.9 (0.4-1.5) % Total Hemoglobin 12.5 L (14-18) g/dL Ionized Calcium 1.2 (1.1-1.4) mmol/L O2 Delivery Device Room air FiO2 21.0 % Sustainable Design Coordinator ID [email or web address] Sodium 138.0 (136-145) mmol/L Potassium 4.5 (3.5-5.1) mmol/L Chloride (98-107) mmol/L Carbon Dioxide (22-29) mmol/L Anion Gap (5-19) BUN (6-20) mg/dL Creatinine (0.7-1.2) mg/dL GFR Calculation (90-130) mL/min Glucose 161.0 H (65-115) mg/dL Calculated Osmolal ity (285-295) mOsm/k g Lactate (0.5-2.2) mmol/L Calcium (8.5-10.5) mg/dL Total Bilirubin (0.15-1.2) mg/dL AST (0-40) U/L ALT (0-41) U/L Alkaline Phosphata se (40-130) IU/L Creatine Kinase (39-308) U/L Troponin T Baselin e (0-15) ng/L Total Protein (6.6-8.7) g/dL Albumin (3.5-5.2) g/dL Globulin (1.3-4.6) g/dL Lipase (13-60) U/L Urine Color (Yellow) Urine Appearance (CLEAR) Urine pH (5-7) Ur Specific Gravit y (1.005-1.030) Urine Protein (Negative) Urine Glucose (UA) (Normal) Urine Ketones (Negative) Urine Blood (Negative) Urine Nitrate (Negative) Urine Bilirubin (NEGATIVE) Urine Urobilinogen (Negative) mg/dL Ur Leukocyte Meg ase (Negative) Serum Ketones (Negative) Discharge Plan Discharge Patient Disposition: Admitted As Inpatient Admit Provider: Corin Hurd Clinical Impression: Fever of unknown origin, Hypertension, Diabetes, Sepsis, Elevated troponin Condition: Stable Discharge Orders: Discharge Order (Routine); Ordered 11/10/19 Ordered By: Corin Hurd Referrals: Shae May DO [Primary Care Provider] - 4-7 days ([facility] May on November 14, at 12:00pm. If you have any questions or concerns please call the office. ) Albertina Balderrama MD [Physician] - 2 weeks (You have an appointment with Dr. Leary on November 10 at 2:45) Discharge Diet: Cardiac Discharge Activity: Increase activity as tolerated Patient Instructions: Doxycycline (By mouth), Atorvastatin (By mouth), Hypertension, Coronary Artery Disease (DC), Sepsis (DC), Obesity (DC), Chest Pain Stoplight Discharge Date/Time: 11/08/19 19:13 Coding Level of Care Code ED Liquor Tester for Chg Fwd Exam Comprehensive
--- NOTE | 2019-11-08 14:42 | PC.NURSE ---
While in the room assessing this patient. Patients SPO2 heart rate was reading 98.
--- NOTE | 2019-11-08 14:43 | ECG_ITS ---
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 Measurements Intervals [place] Rate: 107 P: 6 RI: 154 QRS: -62 QRSD: 123 T: 116 QT: 327 QTc: 437 Interpretive Statements SINUS TACHYCARDIA LEFT ANTERIOR FASCICULAR BLOCK [QRS AXIS <= -45, QR IN I, RS IN II] ANTEROLATERAL MYOCARDIAL INFARCTION [40+ ms Q WAVE IN I/aVL/V3-V6], PROBABLY RECENT ACUTE [place] Compared to ECG 10/31/2019 10:14:37 Left anterior fascicular block now present Sinus bradycardia no longer present First degree AV block no longer present Intraventricular conduction delay no longer present Myocardial infarct finding still present Electronically Signed On 11-08-2019 19:22:44 CDT by Kadi Sales M.D. [id number]
--- NOTE | 2019-11-08 14:43 | XR_ITS ---
WS: [id number] XR chest 1V portable [id number] REASON FOR EXAM: dyspnea/cough FINDINGS: Comparisons were made to previous exam of October 27, 2019. The alveolar infiltrates have resol kari. There is residual cardiomegaly seen but no pneumonia or congestive failure seen. XR/XR chest 1V portable [id number] IMPRESSION: Cardiomegaly Resolved alveolar infiltrates bilaterally.
--- NOTE | 2019-11-08 14:50 | PC.NURSE ---
At this time this nurse hooked the patient up to the tin container straightener and patients heart rate was staying between 90-100.
[2019-11-08 14:58] LABS: Basophils % 0.1 %; Eosinophils % 0.2 %; Hematocrit 37.1 % (42.0-52.0); Hemoglobin 12.3 g/dL (11.7-16.6); Lymphocytes # 0.2 10^3/uL (0.8-4.8); Lymphocytes % 1.5 %; Mean Corpuscular HGB Conc 33.2 g/dL (30.0-36.0); Mean Corpuscular Hemoglobin 29.9 pg (28.0-34.0); Monocytes # 0.3 10^3/uL (0.2-0.9); Monocytes % 1.8 %; Neutrophils # 13.9 10^3/uL (1.8-7.7); Neutrophils % 96.1 %; Nucleated Red Blood Cells % 0 %; Platelet Count 174 10^3/cmm (130-400); Red Blood Count 4.12 10^6/uL (4.1-5.3); Red Cell Distribution Width 13.5 % (12.1-15.1); White Blood Count 14.5 10^3/uL (4.0-10.0)
[2019-11-08 14:59] LABS: Add Urine Microscopic? NO
[2019-11-08 15:00] LABS: Urine Appearance Clear (CLEAR); Urine Color Yellow (Yellow)
[2019-11-08 15:01] LABS: Bilirubin Urine Neg (NEGATIVE); Blood Urine Neg (Negative); Glucose Urine UA Norm (Normal); Ketones Urine Negative (Negative); Leukocyte Esterase Urine Negative (Negative); Nitrate Urine Negative (Negative); Protein Urine Neg (Negative); Specific Gravity, Urine 1.005 (1.005-1.030); Urobilinogen Urine Norm (Negative); pH Urine 7 (5-7)
[2019-11-08 15:02] LABS: Ketone (Acetest) Serum Negative (Negative)
[2019-11-08] MEDS: ipratropium-albuterol 3 mL Neb INHALATION (15:03)
[2019-11-08 15:09] LABS: Lactate (Lactic Acid level) 1.1 mmol/L (0.5-2.2)
[2019-11-08 15:10] LABS: Alanine Aminotransferase 30 U/L (0-41); Albumin Level 3.4 g/dL (3.5-5.2); Alkaline Phosphatase 40 IU/L (40-130); Anion Gap 14.5 (5-19); Aspartate Amino Transferase 19 U/L (0-40); Blood Urea Nitrogen 20 mg/dL (6-20); Calcium 8.6 mg/dL (8.5-10.5); Carbon Dioxide 26 mmol/L (22-29); Chloride 97 mmol/L (98-107); Creatine Phosphokinase 57 U/L (39-308); Globulin 2.2 g/dL (1.3-4.6); Glomerular Filtration Rate 54.3 mL/min (90-130); Glucose 164 mg/dL (65-115); Lipase 40 U/L (13-60); Osmolality Calculated 276 mOsm/kg (285-295); Potassium 4.5 mmol/L (3.5-5.1); Sodium 133 mmol/L (136-145); Total Bilirubin 1.5 mg/dL (0.15-1.2); Total Protein 5.6 g/dL (6.6-8.7)
[2019-11-08] MEDS: ondansetron 2 mg/ML SDV 2 mL 4 MG IVP (15:12)
--- NOTE | 2019-11-08 15:12 | PC.NURSE ---
While in patients room administering medication this nurse noticed the monitor picking up a pulse ox heart rate of 190s. The cardiac leads was showing 90-100 at this time.
[2019-11-08 15:18] LABS: ABG PCO2 30.4 mmHg (35-45); ABG PH Result 7.54 (7.35-7.45); Arterial Blood Gas Hematocrit 38.3 % (42-52); Blood Gas Allen Test Pos; Blood Gas Sample Site Radial, left; Blood Gas Sample Type Arterial; Carboxyhemoglobin 1.9 %THgb (0.4-20.1); HGB O2 Sat 91.8 % (95-100); Ionized Calcium Level - ABG 1.2 mmol/L (1.1-1.4); Methemoglobin 0.9 % (0.4-1.5); Oxygen Device ROOM AIR; Oxygen Saturation ABG 94.4; PO2 ABG 60.6 mmHg (80.0-100.0); Potassium Level - ABG 4.5 mmol/L (3.5-5.0); Total Hemoglobin 12.5 g/dL (14-18)
[2019-11-08 15:19] LABS: Troponin(5th) Baseline 291 ng/L (0-15)
--- NOTE | 2019-11-08 15:22 | PC.NURSE ---
Per Dr. Wills patient is able to have a drink. Glass of water obtained and given to patient. Patient has no other needs at this time.
--- NOTE | 2019-11-08 15:31 | USCV_ITS ---
IsadoraOsman Age: 49 Gender: M : 1970 Exam Date: 11/08/2019 15:59 Ordering Phys: Ricki Wills DO Technologist: Chele Livignston Exam Location: [facility]_ Indication: SWELLING HISTORY: Lower extremity swelling. PROCEDURES: Venous duplex imaging was performed in bilateral lower extremities. The following venous structures were evaluated: common femoral vein, profunda vein, proximal portion of the greater saphenous vein, superficial femoral vein, and the popliteal vein. In addition, the posterior tibial and peroneal trunk were evaluated. Serial compression, augmentation maneuvers, and spectral Doppler flow evaluation were performed. FINDINGS: Normal 2-D Doppler and augmentation and compressibility throughout the lower extremity venous structures. Additional imaging through the proximal calf veins also reveals no thrombus. Limited evaluation of the greater saphenous vein is patent with no thrombus.. CONCLUSIONS No evidence of DVT in the above-mentioned identifiable veins. Dr Kadi Sales MD LOCATED WITHIN [facility] (Electronically Signed) Final Date: 09 November 2019 09:02 S
--- NOTE | 2019-11-08 15:33 | CT_ITS ---
WS: [id number] CT angio chest PE protcl [id number] REASON FOR EXAM: dyspnea TECHNIQUE: Coronal and sagittal 2-D and MIP reformations. IV CONTRAST ADMINISTERED: Omnipaque 350, 95 mL. TOTAL EXAM DLP: 558.[address] scans at [facility] use at least one of these dose optimization techniques: automat ed exposure control; mA and/or kV adjustment per patient size (includes targeted exams where dose is matched to clinical indication); or iterative reconstruction. FINDINGS: After the bolus injection of contrast the pulmonary vasculature fill readily. No filling de fects in the pulmonary arteries are seen. There is evidence of mild chronic obstructive pulmonary dis ease changes. Lymphadenopathy is seen in the liver nodes in the azygos region. The previous exam showed diffuse infiltrates these are not seen today. There is low-grade infiltrate seen in both lower lung roman dated back to 10/27/2019 but none are seen today. The liver and adrenal glands were normal. CT/CT angio chest PE protcl [id number] IMPRESSION: Mild chronic obstructive pulmonary disease. Low probability of thromboembolic changes in the lung roman. The upper abdomen was normal.
[2019-11-08] MEDS: iodixanol 320 mg/mL 100mL Btl IV (15:48)
[2019-11-08] MEDS: vancomycin 1,000 MG in sodium chloride 0.9% 250 ML 250 MG IV (16:43)
--- NOTE | 2019-11-08 16:43 | ECG_ITS ---
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 Measurements Intervals [place] Rate: 89 P: 16 NC: 195 QRS: -56 QRSD: 125 T: 119 QT: 346 QTc: 422 Interpretive Statements SINUS RHYTHM WITH MARKED RHYTHM IRREGULARITY, POSSIBLE NON-CONDUCTED PAC, SA BLOCK, AV BLOCK, OR SINUS PAUSE LEFT ANTERIOR FASCICULAR BLOCK [QRS AXIS <= -45, QR IN I, RS IN II] SEPTAL MYOCARDIAL INFARCTION [40+ ms Q WAVE IN V1/V2], OF INDETERMINATE AGE MODERATE T-WAVE ABNORMALITY, CONSIDER LATERAL ISCHEMIA [-0.1+ mV T WAVE IN I/aVL/V5/V6] Compared to ECG 11/08/2019 15:02:22 T-wave abnormality now present Possible ischemia now present Sinus tachycardia no longer present Myocardial infarct finding still present Electronically Signed On 11-08-2019 19:37:53 CDT by Kadi Sales M.D. [id number]
[2019-11-08 17:30] LABS: Troponin 5 2HR 287.6 ng/L (0-15); Troponin 5 2HR Delta -3.4 ABS# (0-10)
--- NOTE | 2019-11-08 18:30 | PM.CONSULT ---
Providers/Reason For Consult Consulting Physican/Specialty*: Dr. Balderrama, Cardiology Reason for Consult*: Elevated troponin Attending Physician: Corin Hurd MD Primary Care Provider: Shae May DO History of Present Illness History of Present Illness Osman Muir is a 49 year old male with past medical history of hypertension, insulin dependant DM-2, newly diagnosed systolic CHF (LVEF=35%, earlier this month), CAD with h/o PCI x 3 (details not known), hyperlipidemia, morbid obesity, chronic kidney disease, history of alcohol and tobacco abuse, history of substance abuse. He was admitted earlier this month with legionella pneumonia and CHF-like presentation. He was noted to have elevated troponin T of 104 in setting of renal failure and possible sepsis. His COVID test is negative x2. He was treated with levaquin and developed acute renal failure (in setting of ATN with peak creatinine 4.7--> 1.5 on discharge), and rhabdomyolysis. He was evaluated by Dr. Leary and plan was to do coronary angiogram as an outpatient He presented today with fever as high as 104 at home and 101 in ER, chills, nausea/vomiting, dry cough and generally feeling unwell since yesterday. He has noticed decreased urination but has not had any discomfort, blood in his urine or stool, denies chest pain, shortness of breath. Labs today show white count of 14.5,sodium of 133, BUN of 20, creatinine of 1.4 which is improved since discharge, Troponin at baseline today is 291 with a 2-hour repeat at 287 and 6 hr at 273. CTA chest negative for PE. I have been asked to evaluate the patient in setting of elevated troponin. At the time of evaluation, patient is chest pain free, no orthopnea, PND, edema or SOB. Review of Systems Const: Reports: fever(s), chills, body aches and fatigue Eyes: Denies: change in vision ENMT: Reports: dry mouth; Denies: odynophagia Card: Denies: chest pain, edema, swelling of feet/ankles, lightheadedness, syncope or dyspnea on exertion Resp: Reports: non-productive cough; Denies: dyspnea GI: Denies: abdominal pain, nausea, vomiting, hematemesis, diarrhea or hematochezia : Denies: dysuria or urinary frequency Musc: Reports: muscle cramps; Denies: back pain Skin/Breast: Denies: rash Neuro: Denies: numbness in extremities or weakness in extremities Psych: Denies: anxiety Meds/Allergies Home Medications and Allergies Home Medications Medication Instructions Recorded Confirmed Last Taken Type albuterol sulfate [ProAir HFA] 2 inh INHALATION QID PRN #18 gm 10/31/19 11/08/19 Unknown Rx allopurinol 100 mg PO DAILY #30 tab 10/31/19 11/08/19 11/08/19 Rx aspirin 81 mg PO DAILY #30 tab 10/31/19 11/08/19 11/08/19 Rx insulin detemir U-100 [Levemir 6 unit SUBCUT BEDTIME #10 ml 10/31/19 11/08/19 11/05/19 Rx U-100 Insulin] isosorbide mononitrate 15 mg PO Q12H #60 tab 10/31/19 11/08/19 11/08/19 Rx Allergies Allergy/AdvReac Type Severity Reaction Status Date / Time No Known Allergies Allergy Verified 11/08/19 15:27 PFSH Acute PFSH: Medical History Combined systolic and diastolic congestive heart failure Coronary artery disease PCI x3 Diabetes Dyslipidemia Hypertension Hyperuricemia Morbid obesity Surgical History Hx of cardiac cath Family History Other Hypertension Social History Smoking and tobacco status: former smoker Quit status (tobacco): has quit using tobacco Former quit date comment: Quit smoking 1 month ago because of shortness of breath and orthopnea Alcohol intake: never Lives independently: Yes Housing: House 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 Vitals/I&O/Wt Last Vital Signs Temp 101 F H 11/08/19 14:22 Pulse 93 11/08/19 17:04 Resp 11 L 11/08/19 17:04 BP 122/71 11/08/19 17:04 Pulse Ox 92 11/08/19 17:04 11/08/19 11/08/19 11/08/19 06:59 14:59 22:59 Intake Total 3515.86 / 3515.86 Balance 3515.86 / 3515.86 Weight last 48 hrs Weight 240 lb Physical Exam Const: COMMON NORMALS: no acute distress and patient oriented x3 GENERAL APPEARANCE: cooperative, comfortable and appears older than stated age ORIENTATION/CONSCIOUSNESS: Yes awake HENMT: COMMON NORMALS: normocephalic, atraumatic and hearing grossly normal bilaterally HEAD & SCALP: normocephalic and atraumatic Eye: COMMON NORMALS: Equal, round and reactive pupils present, EOMs intact bilaterally and conjunctivae normal CONJUNCTIVA: Yes conjunctivae normal PUPIL: Yes Equal, round and reactive pupils present Neck/C-Spine: COMMON NORMALS: full ROM Chest: CHEST: Yes Symmetrical chest wall rise Resp: COMMON NORMALS: normal respiratory effort, No use of accessory muscles and clear to auscultation bilaterally EFFORT & INSPECTION: No tachypneic AUSCULTATION: clear to auscultation bilaterally Cardio: COMMON NORMALS: regular rate, regular rhythm, S1 normal heart sound present, S2 normal heart sound present and No murmurs present (Cardio) RATE: regular rate RHYTHM: regular rhythm HEART SOUNDS: S1 normal heart sound present and S2 normal heart sound present GI: COMMON NORMALS: Normal to inspection, nondistended, normoactive bowel sounds present and non-tender; negative for Soft to palpation PALPATION: No Soft to palpation Extremity: COMMON NORMALS: normal to inspection, full ROM, no clubbing, cyanosis or edema and no pedal edema GENERAL: Yes calf tenderness (bilateral) Neuro: COMMON NORMALS: patient oriented x3, moves all extremities, no focal motor deficits and no sensory deficits noted Psych: COMMON NORMALS: mental status grossly normal, Normal thought process present, cooperative, normal affect and speech normal SPEECH: Yes normal speech THOUGHT PROCESS: Normal thought process present Skin: COMMON NORMALS: no rashes or lesions noted, no jaundice, no petechiae and no mottling GENERAL SKIN EXAM: no rashes or lesions noted Sepsis: Is patient septic: Yes Focused sepsis exam performed: Yes Date exam was performed: 11/08/19 Time exam was performed: 17:45 Data Micro: Micro: Microbiology 11/08/19 14:50 Blood Culture - Pr eliminary Blood SPECIMEN [facility] 11/08/19 14:42 Blood Culture - Pr eliminary Blood SPECIMEN [facility] Imaging^: Echo: Radiologist's impression: CONCLUSIONS 1-Moderately increased left ventricular cavity size. Severely decreased left ventricular systolic function. Global left ventricular hypokinesis. Left ventricular ejection fraction is estimated at 35 %. Grade III/IV diastolic dysfunction (restrictive filling pattern), severely elevated filling pressures. 2-There is no pericardial effusion. 3-The right ventricle is normal in size and function. RVSP could not be calculated due to incomplete tricuspid regurgitation velocity profile. 4-There are no prior echocardiogram studies to compare. A&P Assessment and plan (1) Sepsis: recent Legionella pneumonia, treated with course of Levaquin; currently on broad spectrum antibiotics for now blood cx pending management as per primary team. Status: Acute Qualifiers: Sepsis acute organ dysfunction status: without acute organ dysfunction Sepsis type: sepsis due to unspecified organism Qualified Code(s): A41.9 - Sepsis, unspecified organism (2) Elevated troponin: He has known hx of CAD s/p PCI x 3 10 years back after PR. He was not following with a cattle sorter as an outpatient. Even though, troponin elevated more when compared to last admission; there is no significant delta change. -No chest pains. I believe this is type 2 NSTEMI in setting of sepsis -continue nitrates, ASA, statin. Status: Acute (3) CAD (coronary artery disease): continue ASA and statin Status: Chronic Qualifiers: Associated angina: without angina Coronary Disease-Associated Artery/Lesion type: [place] artery [place] vs. transplanted heart: [place] heart Qualified Code(s): I25.10 - Atherosclerotic heart disease of [place] coronary artery without angina pectoris (4) Combined systolic and diastolic congestive heart failure: Appears fairly compensated. -Once patient has cleared his infection, will plan for coronary angiogram. 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 Please feel free to call with questions and concerns. 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 transplanted heart: [place] heart Combined systolic and diastolic congestive heart failure I50.43 Heart failure chronicity: acute on chronic Diabetes E11.9; Z79.4 Diabetes mellitus complication status: without complication Diabetes mellitus prison insulin use: with terminal operator use Diabetes mellitus type: type 2
[2019-11-08] MEDS: ciprofloxacin 400 MG/200 ML PREMIX 200 MG IV (18:36)
--- NOTE | 2019-11-08 18:41 | PM.HP ---
Providers/Chief Complaint Admitting Physician: Corin Hurd MD Primary Care Provider: Shae May DO Chief Complaint: fever History of Present Illness Osman Muir is a 49 year old male with PMHx of Chronic combined CHF, Morbid obesity, IDDM type II, HTN, CAD s/p PCI x 3, Hyperlipidemia, presents from home for evaluation of fever, nausea/vomiting, dry cough and generally feeling unwell since yesterday. Patient was recently admitted at our facility between 10/26 to 10/31 during which time he was treated for Legionella pneumonia with a course of Levaquin, acute CHF exacerbation, acute renal failure, and rhabdomyolysis, diagnosed with new onset insulin-dependent diabetes. He reports feeling well by the time he was discharged and up until yesterday was recovering appropriately. Suddenly spiked a fever which when he checked was up to 103, had chills, and had some episodes of nausea and vomiting. He has noticed decreased urination but has not had any discomfort, blood in his urine or stool, denies chest pain, shortness of breath. Has had pain in both legs particularly in the calf area which could be residual from the recent rhabdomyolysis. Work-up today indicates white count of 14.5, stable hemoglobin at 12.3, mild hyponatremia at 133, BUN of 20, creatinine of 1.4 which is improved since discharge, blood sugar of 164, T bili of 1.5 with otherwise normal liver function tests. CPK is 57 compared to 342 on discharge. Lactate is 1.1, urinalysis is negative. Troponin at baseline today is 291 with a 2-hour repeat at 287. This is in comparison to previous baseline of 104. He was seen by cardiology during his last admission due to noted troponin elevation and underlying CHF and CAD. Plan was for continued medication management to allow for complete treatment of infection and then follow-up on need for evaluation with coronary angiogram given noted drop in ejection fraction. Patient clearly denies having had any episodes of chest pain or chest discomfort. Reports having been compliant with his course of antibiotics. He has received a dose of ciprofloxacin and vancomycin as well as some IV fluid hydration the latter which was given due to noted low blood pressure. I requested discontinuation of third liter of fluid due to patient's ejection fraction of 35% to prevent fluid overload. Chest x-ray looks improved compared to last admission. Due to elevated troponin with nuclear cardiac source he had CT chest which is negative for PE and is pending venous duplex report, prelim looks negative for DVT. I have requested formal cardiology reevaluation. Current infectious source is unclear so will cover with broad-spectrum IV antibiotic coverage. His temperature on initial arrival was 101F, is currently afebrile. Due to need for close monitoring of hemodynamic status, will admit to ICU. Review of Systems Const: Reports: fever(s), chills, body aches and fatigue Eyes: Denies: change in vision ENMT: Reports: dry mouth; Denies: odynophagia Card: Denies: chest pain, edema, swelling of feet/ankles, lightheadedness, syncope or dyspnea on exertion Resp: Reports: non-productive cough; Denies: dyspnea GI: Reports: nausea and vomiting; Denies: abdominal pain, hematemesis, diarrhea or hematochezia : Reports: oliguria; Denies: dysuria or urinary frequency Musc: Reports: muscle cramps; Denies: back pain Skin/Breast: Denies: rash Neuro: Denies: numbness in extremities or weakness in extremities Psych: Denies: anxiety Medications/Allergies Home Medications Medication Instructions Recorded Confirmed Last Taken Type albuterol sulfate [ProAir HFA] 2 inh INHALATION QID PRN #18 gm 10/31/19 11/08/19 Unknown Rx allopurinol 100 mg PO DAILY #30 tab 10/31/19 11/08/19 11/08/19 Rx aspirin 81 mg PO DAILY #30 tab 10/31/19 11/08/19 11/08/19 Rx insulin detemir U-100 [Levemir 6 unit SUBCUT BEDTIME #10 ml 10/31/19 11/08/19 11/05/19 Rx U-100 Insulin] isosorbide mononitrate 15 mg PO Q12H #60 tab 10/31/19 11/08/19 11/08/19 Rx Allergies Allergy/AdvReac Type Severity Reaction Status Date / Time No Known Allergies Allergy Verified 11/08/19 15:27 PFSH Acute PFSH: Medical History Combined systolic and diastolic congestive heart failure Ejection fraction 35% with grade 3/4 diastolic dysfunction in October 2019 Coronary artery disease PCI x3 Diabetes Type II, new onset, started on insulin with plan to transition to orals once cardiac and renal issues are further delineated or improved. Dyslipidemia High triglycerides and low HDL. Has not yet been started on statin therapy secondary to elevated CK level. Will need to be started soon. 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 Vitals/I&O/Wt Last Vital Signs Temp 101 F H 11/08/19 14:22 Pulse 82 11/08/19 18:37 Resp 17 11/08/19 18:37 BP 117/68 11/08/19 18:37 Pulse Ox 94 11/08/19 18:37 11/08/19 11/08/19 11/08/19 06:59 14:59 22:59 Intake Total 3515.86 / 3515.86 Balance 3515.86 / 3515.86 Weight last 48 hrs Weight 108.862 kg Physical Exam Const: COMMON NORMALS: no acute distress and patient oriented x3 GENERAL APPEARANCE: cooperative, comfortable and appears older than stated age ORIENTATION/CONSCIOUSNESS: Yes awake OTHER: -somewhat ill appearing HENMT: COMMON NORMALS: normocephalic, atraumatic, hearing grossly normal bilaterally and moist oral mucous membranes HEAD & SCALP: normocephalic and atraumatic Eye: COMMON NORMALS: Equal, round and reactive pupils present, EOMs intact bilaterally and conjunctivae normal CONJUNCTIVA: Yes conjunctivae normal PUPIL: Yes Equal, round and reactive pupils present Neck/C-Spine: COMMON NORMALS: full ROM GENERAL: Yes normal visual inspection and Yes trachea midline Chest: CHEST: Yes Symmetrical chest wall rise Resp: COMMON NORMALS: normal respiratory effort, No retractions, No use of accessory muscles and clear to auscultation bilaterally EFFORT & INSPECTION: Yes able to speak in complete sentences, Yes symmetric chest movement and No tachypneic AUSCULTATION: clear to auscultation bilaterally OTHER: -on RA Cardio: COMMON NORMALS: regular rate, regular rhythm, S1 normal heart sound present, S2 normal heart sound present and No murmurs present (Cardio) RATE: regular rate RHYTHM: regular rhythm HEART SOUNDS: S1 normal heart sound present and S2 normal heart sound present GI: COMMON NORMALS: Normal to inspection, nondistended, normoactive bowel sounds present, Soft to palpation and non-tender INSPECTION: Yes central obesity PALPATION: Yes Soft to palpation Extremity: COMMON NORMALS: normal to inspection, full ROM, no clubbing, cyanosis or edema and no pedal edema GENERAL: Yes calf tenderness (bilateral) Neuro: COMMON NORMALS: patient oriented x3, moves all extremities, no focal motor deficits and no sensory deficits noted Psych: COMMON NORMALS: mental status grossly normal, Normal thought process present, cooperative, normal affect and speech normal SPEECH: Yes normal speech THOUGHT PROCESS: Normal thought process present Skin: COMMON NORMALS: no rashes or lesions noted, no jaundice, no petechiae and no mottling GENERAL SKIN EXAM: no rashes or lesions noted Sepsis: Is patient septic: Yes Focused sepsis exam performed: Yes Date exam was performed: 11/08/19 Time exam was performed: 17:45 Data : 11/08/19 14:42 11/08/19 14:42 Micro: Microbiology 11/08/19 14:50 Blood Culture - Preliminary Blood SPECIMEN COLLECTED 11/08/19 14:42 Blood Culture - Preliminary Blood SPECIMEN COLLECTED A&P Assessment and plan (1) Fever of unknown origin: -noted to have fever with Tmax of 101 F, unclear etiology -associated sepsis given fever, leukocytosis, hypotension -close monitoring of hemodynamic status -recent Legionella pneumonia, treated with course of Levaquin -would cover with broad spectrum antibiotics for now, Zosyn -blood cx ordered from ED -received 2 L bolus in ED -would avoid continued IVF due to risk of fluid overload -trend WBC -lactic acid-1.1 -CXR appears improved, CTA chest shows resolved infiltrates as well -not oxygen dependent at baseline; supplemental oxygen as needed -no change in mental status, no rash, noted N/V with no other GI or symptoms; UA negative -ABG noted with respiratory alkalosis and hypoxia Status: Acute (2) Sepsis: -as noted above Status: Acute Qualifiers: Sepsis type: sepsis due to unspecified organism Sepsis acute organ dysfunction status: without acute organ dysfunction Qualified Code(s): A41.9 - Sepsis, unspecified organism (3) Elevated troponin: -has known hx of CAD s/p PCI x 3 -noted to have elevated troponin during last admission, higher today -Echo (10/26): EF=35%, global LV hypokinesis, G3DD -trend troponins -unable to look up previous ECGs for comparison -telemetry monitoring -Cardiology consult requested -resume nitrates, ASA, statin (CPK normalized) Status: Acute (4) Diabetes: -newly diagnosed, last week and started on insulin -A1c-8.1 -Accuchecks, ISS, hypoglycemia precautions Status: Chronic Qualifiers: Diabetes mellitus type: type 2 Diabetes mellitus long distance operator insulin use: with long distance operator use Diabetes mellitus complication status: without complication Qualified Code(s): E11.9 - Type 2 diabetes mellitus without complications; 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 (5) Dyslipidemia: -recent lipid panel noted -start on statin now that CPK normalized Status: Chronic (6) Combined systolic and diastolic congestive heart failure: -does not look clinically overloaded -had Echo done during last admission with EF=35% -would not continue IVF due to risk of fluid overload Status: Chronic Qualifiers: Heart failure chronicity: acute on chronic Qualified Code(s): I50.43 - Acute on chronic combined systolic (congestive) and diastolic (congestive) heart failure (7) Acute renal failure: -renal function improved -monitor renal function -avoid nephrotoxins, renally dose meds -monitor urine output -appears to have at least CKD stage 2 Status: Acute Qualifiers: Acute renal failure type: with acute tubular necrosis Qualified Code(s): N17.0 - Acute kidney failure with tubular necrosis (8) CAD (coronary artery disease): -as noted above -seems to have baseline HR in the 50-60 range; some readings of tachycardia in ED, which are likely not accurate Status: Chronic Qualifiers: Coronary Disease-Associated Artery/Lesion type: [place] artery [place] vs. transplanted heart: [place] heart Associated angina: without angina Qualified Code(s): I25.10 - Atherosclerotic heart disease of [place] coronary artery without angina pectoris (9) Legionella pneumonia: -recently treated with course of Levaquin and steroids -repeat imaging improved Status: Acute (10) Hypertension: -initially hypotensive, currently normotensive Status: Chronic Qualifiers: Hypertension type: essential hypertension Qualified Code(s): I10 - Essential (primary) hypertension (11) Morbid obesity: -BMI-31 kg/m2 Status: Chronic (12) Hyponatremia: -previously noted to be hyponatremic, then improved over the course of his hospital stay -continue to monitor Na Status: Acute Additional A&P Information -GI ppx with famotidine -DVT ppx with heparin -Dispo: home -Code status: FULL code Attestations Medical Necessity Statement*: Osman Muir's hospital stay will require greater than 2 midnights for management of fever with unclear etiology with associated sepsis, elevated troponin. Time Spent in Patient Care: Greater than 35 minutes (>than 50% of time spent in counselling and/or direct pt care on unit). Coding Level of Care Code Acute Sales And Operations Trainee for Chg Fwd Diagnoses Fever of unknown origin R50.9 Sepsis A41.9 Sepsis type: sepsis due to unspecified organism Sepsis acute organ dysfunction status: without acute organ dysfunction Elevated troponin R79.89 Diabetes E11.9; Z79.4 Diabetes mellitus type: type 2 Diabetes mellitus retirement insulin use: with retirement use Diabetes mellitus complication status: without complication Dyslipidemia E78.5 Combined systolic and diastolic congestive heart failure I50.43 Heart failure chronicity: acute on chronic Acute renal failure N17.0 Acute renal failure type: with acute tubular necrosis CAD (coronary artery disease) I25.10 Coronary Disease-Associated Artery/Lesion type: [place] artery [place] vs. transplanted heart: [place] heart Associated angina: without angina Legionella pneumonia A48.1 Hypertension I10 Hypertension type: essential hypertension Morbid obesity E66.01 Hyponatremia E87.1 Sepsis Event Note Evaluation Current stage of sepsis: sepsis Initial hypotension due to sepsis/infection: MAP < 65 mmHg Possible source: unknown Focused Exam Vital Signs Temp Pulse Pulse Resp BP BP Pulse Ox 11/08/19 20:00 76 16 116/82 95 11/08/19 19:45 75 19 H 134/80 95 11/08/19 19:30 75 22 H 134/80 97 11/08/19 19:22 97.6 F 79 11 L 11/08/19 18:55 86 20 H 117/68 94 11/08/19 18:37 82 17 117/68 94 11/08/19 17:04 93 11 L 122/71 92 11/08/19 16:46 108 H 17 108/73 92 11/08/19 16:20 80 20 H 88/50 92 11/08/19 15:22 103 H 17 107/48 92 11/08/19 15:02 108 H 11/08/19 14:57 105 H 18 93 11/08/19 14:42 91 18 102/62 95 11/08/19 14:22 101 F H 148 H 20 H 156/95 96 Respiratory exam: Present CTAB; Absent accessory muscle use and respiratory distress Cardiovascular exam: Present RRR, S1 and S2; Absent murmur Skin exam: normal turgor Date exam was performed: 11/08/19 Time exam was performed: 20:40 Problem List (1) Fever of unknown origin: Status: Acute (2) Sepsis: Status: Acute (3) Elevated troponin: Status: Acute (4) Diabetes: Status: Chronic (5) Dyslipidemia: Status: Chronic (6) 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 (7) Acute renal failure: Status: Acute (8) CAD (coronary artery disease): Status: Chronic (9) Legionella pneumonia: Status: Acute (10) Hypertension: Status: Chronic (11) Morbid obesity: Status: Chronic (12) Hyponatremia: Status: Acute
--- NOTE | 2019-11-08 19:20 | PC.NURSE ---
Patient to ICU 12 from ED. Patient in no acute signs of distress, on room air, Alert and oriented. Plan of care and goal of treatment explained.
[2019-11-08] MEDS: isosorbide mononitrate ER 30 mg Tablet 15 MG PO (20:24)
[2019-11-08] MEDS: famotidine 20 mg/2 mL INJ IVP (20:24)
[2019-11-08] MEDS: piperacillin-tazobactam 3.375 GM in sodium chloride 0.9% (plus) 50 ML IV (20:24)
[2019-11-08] MEDS: heparin 5,000 unit/mL INJ 1 mL 5000 UNIT SUBCUT (20:25)
--- NOTE | 2019-11-08 20:43 | ECG_ITS ---
[facility] Test Date: 2019-11-08 Pat Name: Osman Muir Department: Room: ICU12 Gender: Male Layboy Operator: COLTON : 1970 Requested By: Ricki Harrison Order Number: [id number] Fabian MD: Albertina Balderrama M.D. Measurements Intervals [place] Rate: 58 P: 0 VA: 196 QRS: -52 QRSD: 140 T: 142 QT: 456 QTc: 450 Interpretive Statements SINUS BRADYCARDIA INTRAVENTRICULAR CONDUCTION DELAY POSSIBLE ANTERIOR MYOCARDIAL INFARCTION, OF INDETERMINATE AGE Compared to ECG 11/08/2019 16:28:57 Intraventricular conduction delay now present Left anterior fascicular block no longer present T-wave abnormality no longer present Possible ischemia no longer present Myocardial infarct finding still present Electronically Signed On 11-09-2019 16:34:55 CDT by Albertina Balderrama M.D. [id number]
[2019-11-08] MEDS: atorvastatin 40 mg Tablet PO (21:01)
[2019-11-08 22:11] LABS: Troponin 5 6HR 273.7 ng/L (0-15); Troponin 5 6HR Delta -17.3 ng/L (0-12)
[2019-11-09] VITALS (17 sets, daily range): BP systolic 96–123; BP diastolic 57–81; PULSE 52–78; RESP 12–22; TEMP 36.8–37.2; O2SAT 92–100
[2019-11-09] MEDS: piperacillin-tazobactam 3.375 GM in sodium chloride 0.9% (plus) 50 ML IV ×3 (04:44→20:05)
[2019-11-09 05:54] LABS: Alanine Aminotransferase 41 U/L (0-41); Albumin Level 2.9 g/dL (3.5-5.2); Alkaline Phosphatase 33 IU/L (40-130); Anion Gap 11.3 (5-19); Aspartate Amino Transferase 40 U/L (0-40); Blood Urea Nitrogen 18 mg/dL (6-20); Calcium 8.5 mg/dL (8.5-10.5); Carbon Dioxide 30 mmol/L (22-29); Chloride 100 mmol/L (98-107); Creatinine Clr Calc Pharmacy 79.9669; Globulin 2.6 g/dL (1.3-4.6); Glomerular Filtration Rate 50.2 mL/min (90-130); Glucose 112 mg/dL (65-115); Osmolality Calculated 281 mOsm/kg (285-295); Potassium 4.3 mmol/L (3.5-5.1); Sodium 137 mmol/L (136-145); Total Bilirubin 0.8 mg/dL (0.15-1.2); Total Protein 5.5 g/dL (6.6-8.7)
[2019-11-09 06:03] LABS: Basophils % 0.3 %; Eosinophils # 0.1 10^3/uL (0.0-0.8); Eosinophils % 1.1 %; Hematocrit 35.1 % (42.0-52.0); Hemoglobin 11.5 g/dL (11.7-16.6); Lymphocytes # 1.1 10^3/uL (0.8-4.8); Lymphocytes % 11.5 %; Mean Corpuscular HGB Conc 32.8 g/dL (30.0-36.0); Mean Corpuscular Hemoglobin 30.2 pg (28.0-34.0); Mean Corpuscular Volume 92.1 fL (80-94); Mean Platelet Volume 9.8 fL (7.4-10.4); Monocytes # 0.7 10^3/uL (0.2-0.9); Monocytes % 6.8 %; Neutrophils # 7.8 10^3/uL (1.8-7.7); Neutrophils % 79.7 %; Nucleated Red Blood Cells % 0 %; Platelet Count 138 10^3/cmm (130-400); Red Blood Count 3.81 10^6/uL (4.1-5.3); Red Cell Distribution Width 13.7 % (12.1-15.1); White Blood Count 9.8 10^3/uL (4.0-10.0)
[2019-11-09 07:30] LABS: Glucose Point of Care 119 mg/dL (70-110)
[2019-11-09] MEDS: heparin 5,000 unit/mL INJ 1 mL 5000 UNIT SUBCUT ×2 (08:06→19:59)
[2019-11-09] MEDS: famotidine 20 mg/2 mL INJ IVP ×2 (08:08→19:59)
[2019-11-09] MEDS: isosorbide mononitrate ER 30 mg Tablet 15 MG PO ×2 (08:08→19:59)
[2019-11-09 08:23] LABS: Glucose Point of Care 158 mg/dL (70-110)
--- NOTE | 2019-11-09 09:23 | PM.PN ---
Subjective Subjective: Interval history: He feels much better this morning, no temp spike this morning Medications: Reviewed: Yes Medication Review Details: Current Medications Acetaminophen (Tylenol) 650 mg PO Q6H PRN PRN Reason: Mild/Mod Pain Or Temp >/= 101 Hydrocodone Bitart/Acetaminophen ([place] 5-325 Mg) 1 tab PO Q4H PRN PRN Reason: MODERATE PAIN Allopurinol (Zyloprim) 100 mg PO DAILY [facility] Aspirin (Aspirin Ec) 81 mg PO DAILY [facility] Atorvastatin Calcium (Lipitor) 40 mg PO BEDTIME [facility] Last Admin: 11/08/19 21:01 Dose: 40 mg Documented by: Dextrose (D50w) 25 ml IVP ONCE PRN; Protocol PRN Reason: hypoglycemia protocol Dextrose (D50w) 50 ml IVP PRN PRN; Protocol PRN Reason: hypoglycemia protocol Famotidine (Pepcid Inj) 20 mg IVP Q12H [facility] Last Admin: 11/09/19 08:08 Dose: 20 mg Documented by: Glucagon (Glucagen) 1 mg IM ONCE PRN; Protocol PRN Reason: Adult Acute Hypoglycemia Prot. Heparin Sodium (Beef Lung) (Heparin) 5,000 unit SUBCUT Q12H [facility] Last Admin: 11/09/19 08:06 Dose: 5,000 unit Documented by: Piperacillin Sod/Tazobactam (Sod 3.375 gm/ Sodium Chloride) 50 mls @ 12.5 mls/hr IV Q8H [facility]; Protocol Last Admin: 11/09/19 04:44 Dose: 12.5 mls/hr Documented by: Dextrose (D5w) 500 mls @ 100 mls/hr IV ONCE PRN; Protocol PRN Reason: Adult Acute Hypoglycemia Prot Insulin Aspart (Novolog) 0 unit SUBCUT WM&BEDTIME [facility]; Protocol Last Admin: 11/09/19 07:31 Dose: Not Given Documented by: Isosorbide Mononitrate (Imdur) 15 mg PO Q12H [facility] Last Admin: 11/09/19 08:08 Dose: 15 mg Documented by: Morphine Sulfate (Morphine) 2 mg IVP Q4H PRN PRN Reason: SEVERE PAIN Ondansetron HCl (Zofran) 4 mg IVP Q6H PRN PRN Reason: NAUSEA AND VOMITING Vitals/I&O/Wt Last Vital Signs Temp 98.9 F 11/09/19 04:00 Pulse 66 11/09/19 08:36 Resp 12 11/09/19 08:28 BP 98/72 11/09/19 08:28 Pulse Ox 95 11/09/19 08:36 11/08/19 11/09/19 11/09/19 22:59 06:59 14:59 Intake Total 3765.86 / 3765.86 50 / 3815.86 120 / 120 Output Total 300 / 300 400 / 700 Balance 3465.86 / 3465.86 -350 / 3115.86 120 / 120 Weight last 48 hrs Weight 240 lb Physical Exam Const: COMMON NORMALS: no acute distress and patient oriented x3 GENERAL APPEARANCE: cooperative, comfortable and appears older than stated age ORIENTATION/CONSCIOUSNESS: Yes awake HENMT: COMMON NORMALS: normocephalic, atraumatic and hearing grossly normal bilaterally HEAD & SCALP: normocephalic and atraumatic Eye: COMMON NORMALS: Equal, round and reactive pupils present, EOMs intact bilaterally and conjunctivae normal CONJUNCTIVA: Yes conjunctivae normal PUPIL: Yes Equal, round and reactive pupils present Neck/C-Spine: COMMON NORMALS: full ROM Resp: COMMON NORMALS: normal respiratory effort, No use of accessory muscles and clear to auscultation bilaterally AUSCULTATION: clear to auscultation bilaterally Cardio: COMMON NORMALS: regular rate, regular rhythm, S1 normal heart sound present, S2 normal heart sound present and No murmurs present (Cardio) RATE: regular rate RHYTHM: regular rhythm HEART SOUNDS: S1 normal heart sound present and S2 normal heart sound present GI: COMMON NORMALS: Normal to inspection, nondistended, normoactive bowel sounds present and non-tender; negative for Soft to palpation PALPATION: No Soft to palpation Extremity: COMMON NORMALS: normal to inspection, full ROM, no clubbing, cyanosis or edema and no pedal edema GENERAL: Yes calf tenderness (bilateral) Neuro: COMMON NORMALS: patient oriented x3, moves all extremities and no focal motor deficits Psych: COMMON NORMALS: mental status grossly normal, Normal thought process present, cooperative, normal affect and speech normal SPEECH: Yes normal speech THOUGHT PROCESS: Normal thought process present Skin: COMMON NORMALS: no rashes or lesions noted, no jaundice, no petechiae and no mottling GENERAL SKIN EXAM: no rashes or lesions noted Sepsis: Is patient septic: Yes Focused sepsis exam performed: Yes Date exam was performed: 11/08/19 Time exam was performed: 17:45 Data : 11/09/19 01:50 11/09/19 01:50 Micro: Microbiology 11/08/19 14:56 Legionella Urinary Antigen - Final Urine,Voided Bacterial Antigens - Final 11/08/19 14:50 Blood Culture - Preliminary Blood SPECIMEN COLLECTED 11/08/19 14:42 Blood Culture - Preliminary Blood SPECIMEN COLLECTED A&P Assessment and plan (1) Sepsis: recent Legionella pneumonia, treated with course of Levaquin; currently on broad spectrum antibiotics for now blood cx pending management as per primary team. Status: Acute Qualifiers: Sepsis acute organ dysfunction status: without acute organ dysfunction Sepsis type: sepsis due to unspecified organism Qualified Code(s): A41.9 - Sepsis, unspecified organism (2) Elevated troponin: He has known hx of CAD s/p PCI x 3 10 years back after [place]. He was not following with a plastic machine operator as an outpatient. Even though, troponin elevated more when compared to last admission; there is no significant delta change. -No chest pains. I believe this is type 2 NSTEMI in setting of sepsis -continue nitrates, ASA, statin. Status: Acute (3) CAD (coronary artery disease): continue ASA and statin Status: Chronic Qualifiers: Coronary Disease-Associated Artery/Lesion type: [place] artery [place] vs. transplanted heart: [place]q heart Associated angina: without angina Qualified Code(s): I25.10 - Atherosclerotic heart disease of [place] coronary artery without angina pectoris (4) Combined systolic and diastolic congestive heart failure: Appears fairly compensated. -Once patient has cleared his infection, will plan for coronary angiogram. Status: Chronic Qualifiers: Heart failure chronicity: acute on chronic Qualified Code(s): I50.43 - Acute on chronic combined systolic (congestive) and diastolic (congestive) heart failure (5) Diabetes: Status: Chronic Qualifiers: Diabetes mellitus type: type 2 Diabetes mellitus usp insulin use: with salvage determiner use Diabetes mellitus complication status: without complication Qualified Code(s): E11.9 - Type 2 diabetes mellitus without complications; Z79.4 - long-term (current) use of insulin Additional A&P Information Dyslipidemia CKD stage 2 H/O Hypertension : BP soft presently, received ~2 L IVF in ER, closely monitor. Anemia Thank you for allowing me to participate in patient's care. Please feel free to call with questions and concerns. Attestations Medical Necessity Statement*: Needs hospital stay for sepsis. Coding Level of Care Code Acute Laborer Tin [place] for Chg Fwd Diagnoses Sepsis A41.9 Sepsis acute organ dysfunction status: without acute organ dysfunction Sepsis type: sepsis due to unspecified organism Elevated troponin R79.89 CAD (coronary artery disease) I25.10 Coronary Disease-Associated Artery/Lesion type: [place] artery [place] vs. transplanted heart: [place]q heart Associated angina: without angina Combined systolic and diastolic congestive heart failure I50.43 Heart failure chronicity: acute on chronic Diabetes E11.9; Z79.4 Diabetes mellitus type: type 2 Diabetes mellitus salvage determiner insulin use: with salvage determiner use Diabetes mellitus complication status: without complication
[2019-11-09] MEDS: aspirin 81 mg EC Tablet PO (09:31)
[2019-11-09] MEDS: allopurinol 100 mg Tablet PO (09:31)
--- NOTE | 2019-11-09 09:46 | PM.PN ---
Subjective Subjective: Interval history: Afebrile overnight, had 700 mL urine output, normotensive overnight, remains on room air. Resolved leukocytosis, stable hemoglobin and renal function. Looks and reports feeling much better today, has been ambulating to/from the bathroom with minimal soreness in his legs. Medications: Reviewed: Yes Medication Review Details: Active Medications Generic Name Dose Route Start Last Admin Trade Name Freq PRN Reason Stop Dose Admin Acetaminophen 650 mg 11/08/19 19:22 Tylenol PO Q6H PRN Mild/Mod Pain Or Temp >/= 101 Hydrocodone Bitart /Acetaminophen 1 tab 11/08/19 19:22 [place] 5-325 Mg PO Q4H PRN MODERATE PAIN Allopurinol 100 mg 11/09/19 09:00 11/09/19 09:31 Zyloprim PO 100 mg DAILY EDELMIRA Administration Aspirin 81 mg 11/09/19 09:00 11/09/19 09:31 Aspirin Ec PO 81 mg DAILY EDELMIRA Administration Atorvastatin Calci um 40 mg 11/08/19 21:00 11/08/19 21:01 Lipitor PO 40 mg BEDTIME EDELMIRA Administration Dextrose 25 ml 11/08/19 20:18 D50w IVP ONCE PRN hypoglycemia prot ocol Protocol Dextrose 50 ml 11/08/19 20:18 D50w IVP PRN PRN hypoglycemia prot ocol Protocol Famotidine 20 mg 11/08/19 19:22 11/09/19 08:08 Pepcid Inj IVP 20 mg Q12H EDELMIRA Administration Glucagon 1 mg 11/08/19 20:18 Glucagen IM ONCE PRN Adult Acute Hypog lycemia Prot. Protocol Heparin Sodium (Be ef Lung) 5,000 unit 11/08/19 19:22 11/09/19 08:06 Heparin SUBCUT 5,000 unit Q12H EDELMIRA Administration Piperacillin Sod/T azobactam 50 mls @ 12.5 mls /hr 11/08/19 20:00 11/09/19 04:44 Sod 3.375 gm/ So dium Chloride IV 12.5 mls/hr Q8H EDELMIRA Administration Protocol Dextrose 500 mls @ 100 mls /hr 11/08/19 20:18 D5w IV ONCE PRN Adult Acute Hypog lycemia Prot Protocol Insulin Aspart 0 unit 11/08/19 21:00 11/09/19 07:31 Novolog SUBCUT Not Given WM&BEDTIME EDELMIRA Protocol Isosorbide Mononit rate 15 mg 11/08/19 19:22 11/09/19 08:08 Imdur PO 15 mg Q12H [facility] Administration Morphine Sulfate 2 mg 11/08/19 19:22 Morphine IVP Q4H PRN SEVERE PAIN Ondansetron HCl 4 mg 11/08/19 19:22 Zofran IVP Q6H PRN NAUSEA AND VOMITI NG No Known Allergies Allergy (Verified 11/08/19 15:27) Vitals/I&O/Wt Last Vital Signs Temp 98.9 F 11/09/19 04:00 Pulse 66 11/09/19 08:36 Resp 12 11/09/19 08:28 BP 98/72 11/09/19 08:28 Pulse Ox 95 11/09/19 08:36 11/08/19 11/09/19 11/09/19 22:59 06:59 14:59 Intake Total 3765.86 / 3765.86 50 / 3815.86 120 / 120 Output Total 300 / 300 400 / 700 Balance 3465.86 / 3465.86 -350 / 3115.86 120 / 120 Weight last 48 hrs Weight 108.862 kg Physical Exam Const: COMMON NORMALS: no acute distress and patient oriented x3 GENERAL APPEARANCE: cooperative, comfortable and appears older than stated age; not ill appearing ORIENTATION/CONSCIOUSNESS: Yes awake HENMT: COMMON NORMALS: normocephalic, atraumatic, hearing grossly normal bilaterally and moist oral mucous membranes HEAD & SCALP: normocephalic and atraumatic Eye: COMMON NORMALS: Equal, round and reactive pupils present, EOMs intact bilaterally and conjunctivae normal CONJUNCTIVA: Yes conjunctivae normal PUPIL: Yes Equal, round and reactive pupils present Neck/C-Spine: COMMON NORMALS: full ROM GENERAL: Yes normal visual inspection and Yes trachea midline Chest: CHEST: Yes Symmetrical chest wall rise Resp: COMMON NORMALS: normal respiratory effort, No retractions, No use of accessory muscles and clear to auscultation bilaterally EFFORT & INSPECTION: Yes able to speak in complete sentences, Yes symmetric chest movement and No tachypneic AUSCULTATION: clear to auscultation bilaterally OTHER: -on RA Cardio: COMMON NORMALS: regular rate, regular rhythm, S1 normal heart sound present, S2 normal heart sound present and No murmurs present (Cardio) RATE: regular rate RHYTHM: regular rhythm HEART SOUNDS: S1 normal heart sound present and S2 normal heart sound present GI: COMMON NORMALS: Normal to inspection, nondistended, normoactive bowel sounds present, Soft to palpation and non-tender INSPECTION: Yes central obesity PALPATION: Yes Soft to palpation Extremity: COMMON NORMALS: normal to inspection, full ROM, no clubbing, cyanosis or edema and no pedal edema GENERAL: Yes calf tenderness (bilateral; minimal) Neuro: COMMON NORMALS: patient oriented x3, moves all extremities, no focal motor deficits and no sensory deficits noted Psych: COMMON NORMALS: mental status grossly normal, Normal thought process present, cooperative, normal affect and speech normal SPEECH: Yes normal speech THOUGHT PROCESS: Normal thought process present Skin: COMMON NORMALS: no rashes or lesions noted, no jaundice, no petechiae and no mottling GENERAL SKIN EXAM: no rashes or lesions noted Data : 11/09/19 01:50 11/09/19 01:50 Micro: Microbiology 11/08/19 14:56 Legionella Urinary Antigen - Final Urine,Voided Bacterial Antigens - Final 11/08/19 14:50 Blood Culture - Preliminary Blood SPECIMEN COLLECTED 11/08/19 14:42 Blood Culture - Preliminary Blood SPECIMEN COLLECTED A&P Assessment and plan (1) Fever of unknown origin: -noted to have fever with Tmax of 101 F, unclear etiology. Currently afebrile -associated sepsis given fever, leukocytosis, hypotension; all of which has resolved given hemodynamic stability, resolved leukocytosis -close monitoring of hemodynamic status -recent Legionella pneumonia, treated with course of Levaquin -Repeat bacterial antigens and Legionella negative -would cover with broad spectrum antibiotics for now, Zosyn -blood cx: prelim negative -received 2 L bolus in ED; would avoid continued IVF due to risk of fluid overload -trend WBC; normalized today -lactic acid-1.1 -CXR appears improved, CTA chest shows resolved infiltrates as well -not oxygen dependent at baseline; supplemental oxygen as needed -no change in mental status, no rash, noted N/V with no other GI or symptoms; UA negative -ABG noted with respiratory alkalosis and hypoxia Status: Acute (2) Sepsis: -as noted above Status: Resolved Qualifiers: Sepsis acute organ dysfunction status: without acute organ dysfunction Sepsis type: sepsis due to unspecified organism Qualified Code(s): A41.9 - Sepsis, unspecified organism (3) Elevated troponin: -has known hx of CAD s/p PCI x 3 -noted to have elevated troponin during last admission, higher today though no significant delta -likely secondary to demand ischemia -Echo (10/26): EF=35%, global LV hypokinesis, G3DD -unable to look up previous ECGs for comparison -telemetry monitoring -Cardiology consult by Dr. Balderrama appreciated; plan for cath once infection resolved -continue nitrates, ASA, statin (CPK normalized) Status: Acute (4) Diabetes: -newly diagnosed, last week and started on insulin -A1c-8.1 -Accuchecks, ISS, hypoglycemia precautions; so far has not needed any insulin Status: Chronic Qualifiers: Diabetes mellitus complication status: without complication Diabetes mellitus custodial insulin use: with custodial use Diabetes mellitus type: type 2 Qualified Code(s): E11.9 - Type 2 diabetes mellitus without complications; Z79.4 - skilled nursing (current) use of insulin (5) Dyslipidemia: -recent lipid panel noted -on statin now that CPK normalized Status: Chronic (6) Combined systolic and diastolic congestive heart failure: -does not look clinically overloaded -had Echo done during last admission with EF=35% -would not continue IVF due to risk of fluid overload Status: Chronic Qualifiers: Heart failure chronicity: acute on chronic Qualified Code(s): I50.43 - Acute on chronic combined systolic (congestive) and diastolic (congestive) heart failure (7) Acute renal failure: -renal function improved -continue to monitor renal function -avoid nephrotoxins, renally dose meds -continue to monitor urine output -appears to have at least CKD stage 2 Status: Acute Qualifiers: Acute renal failure type: with acute tubular necrosis Qualified Code(s): N17.0 - Acute kidney failure with tubular necrosis (8) CAD (coronary artery disease): -as noted above -seems to have baseline HR in the 50-60 range; some readings of tachycardia in ED, which are likely not accurate Status: Chronic Qualifiers: Associated angina: without angina Coronary Disease-Associated Artery/Lesion type: [place] artery [place] vs. transplanted heart: [place] heart Qualified Code(s): I25.10 - Atherosclerotic heart disease of [place] coronary artery without angina pectoris (9) Legionella pneumonia: -recently treated with course of Levaquin and steroids -repeat imaging improved -repeat Legionella antigen negative Status: Acute (10) Hypertension: -initially hypotensive, currently normotensive Status: Chronic Qualifiers: Hypertension type: essential hypertension Qualified Code(s): I10 - Essential (primary) hypertension (11) Morbid obesity: -BMI-31 kg/m2 Status: Chronic (12) Hyponatremia: -previously noted to be hyponatremic, then improved over the course of his hospital stay. Now normalized -continue to monitor Na Status: Acute Additional A&P Information -GI ppx with famotidine -DVT ppx with heparin -Dispo: home -Code status: FULL code -transfer to CSU once bed available Attestations Medical Necessity Statement*: Patient requires hospitalization for continued IV antibiotics pending identification of infectious etiology, continued monitoring of hemodynamic status. Time Spent in Patient Care: 16 - 35 minutes (>than 50% of time spent in counselling and/or direct pt care on unit). Coding Level of Care Code Acute Electrocardiograph Technician for Chg Fwd Exam Comprehensive Diagnoses Fever of unknown origin R50.9 Sepsis A41.9 Sepsis acute organ dysfunction status: without acute organ dysfunction Sepsis type: sepsis due to unspecified organism Elevated troponin R79.89 Diabetes E11.9; Z79.4 Diabetes mellitus complication status: without complication Diabetes mellitus custodial insulin use: with termite exterminator helper use Diabetes mellitus type: type 2 Dyslipidemia E78.5 Combined systolic and diastolic congestive heart failure I50.43 Heart failure chronicity: acute on chronic Acute renal failure N17.0 Acute renal failure type: with acute tubular necrosis CAD (coronary artery disease) I25.10 Associated angina: without angina Coronary Disease-Associated Artery/Lesion type: [place] artery [place] vs. transplanted heart: chilkat heart Legionella pneumonia A48.1 Hypertension I10 Hypertension type: essential hypertension Morbid obesity E66.01 Hyponatremia E87.1
[2019-11-09 16:37] LABS: Glucose Point of Care 147 mg/dL (70-110)
--- NOTE | 2019-11-09 16:38 | PC.NURSE ---
Sliding scale calls for 2u insulin for Blood sugar of 147. Patient refuses insulin since his doctor Dr. Millard from [place] has told him he shouldnt take insulin unless >150, and that once he takes insulin that he will require it. Notified Dr. Hurd of patient refusing insulin.
--- NOTE | 2019-11-09 18:29 | PC.NURSE ---
1824 Called report to [facility], but room is not clean yet. [facility] will call unit when room is clean. Patient notified of moving to 102. Belongings gathered and w/c in room ready to move.
--- NOTE | 2019-11-09 19:30 | PC.NURSE ---
PASSWORD: Patient requests that all calls be transferred to him. No password given at this time.
--- NOTE | 2019-11-09 19:31 | PC.NURSE ---
Patient received from ICU via wheelchair. Patient able to ambulate ad mary. No difficulties or weakness observed. Patient reports feeling much better after receiving IV antibiotics overnight . Assessment completed as documented.
[2019-11-09] MEDS: atorvastatin 40 mg Tablet PO (19:59)
[2019-11-09 20:44] LABS: Glucose Point of Care 128 mg/dL (70-110)
--- NOTE | 2019-11-09 22:08 | PC.NURSE ---
Patient accidentally removed IV catheter from left AC. Catheter found intact. New IV initiated by SAJAN Dailey. Patient tolerated fair stating they have been having a hard time getting IV's in me.
--- NOTE | 2019-11-09 23:27 | PC.NURSE ---
Patient requesting something to help with sleep tonight. Spoke with Dr Knight and received order for one time dose of Trazadone 50mg PO.
[2019-11-09] MEDS: trazodone 50 mg Tablet PO (23:31)
[2019-11-10 04:00] VITALS: BP 117/77; PULSE 61; RESP 14; TEMP 36.6; O2SAT 94
[2019-11-10] MEDS: piperacillin-tazobactam 3.375 GM in sodium chloride 0.9% (plus) 50 ML IV ×2 (04:22→12:21)
[2019-11-10 04:45] LABS: Basophils % 0.4 %; Eosinophils # 0.1 10^3/uL (0.0-0.8); Hematocrit 34.8 % (42.0-52.0); Hemoglobin 11.1 g/dL (11.7-16.6); Lymphocytes # 2.2 10^3/uL (0.8-4.8); Lymphocytes % 31.3 %; Mean Corpuscular HGB Conc 31.9 g/dL (30.0-36.0); Mean Corpuscular Hemoglobin 29.7 pg (28.0-34.0); Mean Platelet Volume 10.3 fL (7.4-10.4); Monocytes # 0.7 10^3/uL (0.2-0.9); Monocytes % 10.5 %; Neutrophils # 3.9 10^3/uL (1.8-7.7); Neutrophils % 55.5 %; Nucleated Red Blood Cells % 0 %; Platelet Count 126 10^3/cmm (130-400); Red Blood Count 3.74 10^6/uL (4.1-5.3); Red Cell Distribution Width 13.5 % (12.1-15.1); White Blood Count 7.1 10^3/uL (4.0-10.0)
[2019-11-10 05:38] LABS: Anion Gap 13.2 (5-19); Blood Urea Nitrogen 20 mg/dL (6-20); Calcium 8.9 mg/dL (8.5-10.5); Carbon Dioxide 26 mmol/L (22-29); Chloride 102 mmol/L (98-107); Glomerular Filtration Rate 46.6 mL/min (90-130); Glucose 117 mg/dL (65-115); Osmolality Calculated 282 mOsm/kg (285-295); Potassium 4.2 mmol/L (3.5-5.1); Sodium 137 mmol/L (136-145)
[2019-11-10 06:33] LABS: Glucose Point of Care 137 mg/dL (70-110)
[2019-11-10 06:57] VITALS: BP 104/65; PULSE 56; RESP 18; TEMP 36.7; O2SAT 97
[2019-11-10] MEDS: isosorbide mononitrate ER 30 mg Tablet 15 MG PO (07:29)
[2019-11-10] MEDS: famotidine 20 mg/2 mL INJ IVP (07:29)
--- NOTE | 2019-11-10 07:36 | PC.NURSE ---
patient refuses heparin injection reports bruising and pain in ABD Dr lopez notified of patient refusal; SCD's are in place. No new orders at this time.
[2019-11-10 07:40] LABS: Glucose Point of Care 170 mg/dL (70-110)
[2019-11-10] MEDS: allopurinol 100 mg Tablet PO (08:53)
[2019-11-10] MEDS: aspirin 81 mg EC Tablet PO (08:53)
[2019-11-10 10:56] LABS: Glucose Point of Care 162 mg/dL (70-110)
[2019-11-10 10:59] VITALS: BP 108/74; PULSE 57; RESP 20; TEMP 36.6; O2SAT 96
--- NOTE | 2019-11-10 11:38 | PM.PN ---
Subjective Subjective: Interval history: Hemoglobin and renal function are stable, on 2 L nasal cannula O2 saturating at 96% so we will try to wean this off. Intermittently bradycardic in the high 50s. Had 1250 mL urine output overnight. 1 out of 4 bottles of his initial blood cultures positive for gram-positive cocci, likely contaminant but will order repeat set. Remains on Zosyn. Resting in bed, no apparent distress, no acute overnight events. Reports feeling well and would like to go home today. Denies SOB, chest pain, on RA during my assessment. Has been ambulatory. Medications: Reviewed: Yes Medication Review Details: Active Medications Generic Name Dose Route Start Last Admin Trade Name Freq PRN Reason Stop Dose Admin Acetaminophen 650 mg 11/08/19 19:22 Tylenol PO Q6H PRN Mild/Mod Pain Or Temp >/= 101 Hydrocodone Bitart /Acetaminophen 1 tab 11/08/19 19:22 [place] 5-325 Mg PO Q4H PRN MODERATE PAIN Allopurinol 100 mg 11/09/19 09:00 11/10/19 08:53 Zyloprim PO 100 mg DAILY EDELMIRA Administration Aspirin 81 mg 11/09/19 09:00 11/10/19 08:53 Aspirin Ec PO 81 mg DAILY EDELMIRA Administration Atorvastatin Calci um 40 mg 11/08/19 21:00 11/09/19 19:59 Lipitor PO 40 mg BEDTIME EDELMIRA Administration Dextrose 25 ml 11/08/19 20:18 D50w IVP ONCE PRN hypoglycemia prot ocol Protocol Dextrose 50 ml 11/08/19 20:18 D50w IVP PRN PRN hypoglycemia prot ocol Protocol Famotidine 20 mg 11/08/19 19:22 11/10/19 07:29 Pepcid Inj IVP 20 mg Q12H EDELMIRA Administration Glucagon 1 mg 11/08/19 20:18 Glucagen IM ONCE PRN Adult Acute Hypog lycemia Prot. Protocol Heparin Sodium (Be ef Lung) 5,000 unit 11/08/19 19:22 11/10/19 07:31 Heparin SUBCUT Not Given Q12H EDELMIRA Piperacillin Sod/T azobactam 50 mls @ 12.5 mls /hr 11/08/19 20:00 11/10/19 08:20 Sod 3.375 gm/ So dium Chloride IV Infused Q8H EDELMIRA Infusion Protocol Dextrose 500 mls @ 100 mls /hr 11/08/19 20:18 D5w IV ONCE PRN Adult Acute Hypog lycemia Prot Protocol Insulin Aspart 0 unit 11/08/19 21:00 11/10/19 07:05 Novolog SUBCUT Not Given WM&BEDTIME EDELMIRA Protocol Isosorbide Mononit rate 15 mg 11/08/19 19:22 11/10/19 07:29 Imdur PO 15 mg Q12H EDELMIRA Administration Morphine Sulfate 2 mg 11/08/19 19:22 Morphine IVP Q4H PRN SEVERE PAIN Ondansetron HCl 4 mg 11/08/19 19:22 Zofran IVP Q6H PRN NAUSEA AND VOMITI NG No Known Allergies Allergy (Verified 11/08/19 15:27) Vitals/I&O/Wt Last Vital Signs Temp 97.8 F 11/10/19 10:59 Pulse 57 L 11/10/19 10:59 Resp 20 H 11/10/19 10:59 BP 108/74 11/10/19 10:59 Pulse Ox 96 11/10/19 10:59 11/09/19 11/10/19 11/10/19 22:59 06:59 14:59 Intake Total 770 / 1180 199.583 / 1379.583 290 / 290 Output Total 1250 / 1900 1250 / 3150 400 / 400 Balance -480 / -720 -1050.417 / -1770.417 -110 / -110 Weight last 48 hrs Weight 108.409 kg Weight 108.046 kg Weight 108.862 kg Physical Exam Const: COMMON NORMALS: no acute distress and patient oriented x3 GENERAL APPEARANCE: cooperative, comfortable and appears older than stated age; not ill appearing ORIENTATION/CONSCIOUSNESS: Yes awake HENMT: COMMON NORMALS: normocephalic, atraumatic, hearing grossly normal bilaterally and moist oral mucous membranes HEAD & SCALP: normocephalic and atraumatic Eye: COMMON NORMALS: Equal, round and reactive pupils present, EOMs intact bilaterally and conjunctivae normal CONJUNCTIVA: Yes conjunctivae normal PUPIL: Yes Equal, round and reactive pupils present Neck/C-Spine: COMMON NORMALS: full ROM GENERAL: Yes normal visual inspection and Yes trachea midline Chest: CHEST: Yes Symmetrical chest wall rise Resp: COMMON NORMALS: normal respiratory effort, No retractions, No use of accessory muscles and clear to auscultation bilaterally EFFORT & INSPECTION: Yes able to speak in complete sentences, Yes symmetric chest movement and No tachypneic AUSCULTATION: clear to auscultation bilaterally OTHER: -on RA Cardio: COMMON NORMALS: regular rate, regular rhythm, S1 normal heart sound present, S2 normal heart sound present and No murmurs present (Cardio) RATE: regular rate RHYTHM: regular rhythm HEART SOUNDS: S1 normal heart sound present and S2 normal heart sound present GI: COMMON NORMALS: Normal to inspection, nondistended, normoactive bowel sounds present, Soft to palpation and non-tender INSPECTION: Yes central obesity PALPATION: Yes Soft to palpation Extremity: COMMON NORMALS: normal to inspection, full ROM, no clubbing, cyanosis or edema and no pedal edema GENERAL: Yes calf tenderness (bilateral; minimal) Neuro: COMMON NORMALS: patient oriented x3, moves all extremities, no focal motor deficits and no sensory deficits noted Psych: COMMON NORMALS: mental status grossly normal, Normal thought process present, cooperative, normal affect and speech normal SPEECH: Yes normal speech THOUGHT PROCESS: Normal thought process present Skin: COMMON NORMALS: no rashes or lesions noted, no jaundice, no petechiae and no mottling GENERAL SKIN EXAM: no rashes or lesions noted Data : 11/10/19 04:03 11/10/19 04:03 Micro: Microbiology 11/10/19 09:48 Blood Culture - Preliminary Blood SPECIMEN COLLECTED 11/10/19 09:48 Blood Culture - Preliminary Blood SPECIMEN COLLECTED 11/08/19 14:42 Blood Culture - Preliminary Blood Gram positive cocci 11/08/19 14:50 Blood Culture - Preliminary Blood NEGATIVE TO DATE A&P Assessment and plan (1) Fever of unknown origin: -noted to have fever with Tmax of 101 F on admission, unclear etiology. Has been afebrile since -associated sepsis given fever, leukocytosis, hypotension; all of which has resolved given hemodynamic stability, resolved leukocytosis, no fever -close monitoring of hemodynamic status -recent Legionella pneumonia, treated with course of Levaquin -Repeat bacterial antigens and Legionella negative -would cover with broad spectrum antibiotics for now, Zosyn -blood cx: 1/ bottles positive for GPC, likely contaminant but will order repeat set -received 2 L bolus in ED; would avoid continued IVF due to risk of fluid overload -WBC normalized -lactic acid-1.1 -CXR appears improved, CTA chest shows resolved infiltrates as well -not oxygen dependent at baseline; supplemental oxygen as needed -no change in mental status, no rash, noted N/V with no other GI or symptoms; UA negative -ABG noted with respiratory alkalosis and hypoxia -low suspicion for infection but in light of recent admission, initial fever, questionable + blood cx and need for coronary angiogram, would continue broad-spectrum antibiotics for a few more days Status: Acute (2) Sepsis: -as noted above Status: Resolved Qualifiers: Sepsis acute organ dysfunction status: without acute organ dysfunction Sepsis type: sepsis due to unspecified organism Qualified Code(s): A41.9 - Sepsis, unspecified organism (3) Elevated troponin: -has known hx of CAD s/p PCI x 3 -noted to have elevated troponin during last admission, higher today though no significant delta -likely secondary to demand ischemia -Echo (10/26): EF=35%, global LV hypokinesis, G3DD -unable to look up previous ECGs for comparison -telemetry monitoring -Cardiology consult by Dr. 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 Diabetes mellitus type: type 2 Qualified Code(s): E11.9 - Type 2 diabetes mellitus without complications; Z79.4 - long term care social worker (current) use of insulin (5) Dyslipidemia: -recent lipid panel noted -on statin now that CPK normalized Status: Chronic (6) Combined systolic and diastolic congestive heart failure: -does not look clinically overloaded -had Echo done during last admission with EF=35% -would not continue IVF due to risk of fluid overload Status: Chronic Qualifiers: Heart failure chronicity: acute on chronic Qualified Code(s): I50.43 - Acute on chronic combined systolic (congestive) and diastolic (congestive) heart failure (7) Acute renal failure: -renal function improved -continue to monitor renal function; current renal function may be new baseline -avoid nephrotoxins, renally dose meds -continue to monitor urine output -appears to have at least CKD stage 2 Status: Acute Qualifiers: Acute renal failure type: with acute tubular necrosis Qualified Code(s): N17.0 - Acute kidney failure with tubular necrosis (8) CAD (coronary artery disease): -as noted above -seems to have baseline HR in the 50-60 range; some readings of tachycardia in ED, which are likely not accurate Status: Chronic Qualifiers: Associated angina: without angina Coronary Disease-Associated Artery/Lesion type: [place] artery [place] vs. transplanted heart: [place] heart Qualified Code(s): I25.10 - Atherosclerotic heart disease of [place] coronary artery without angina pectoris (9) Legionella pneumonia: -recently treated with course of Levaquin and steroids -repeat imaging improved -repeat Legionella antigen negative Status: Acute (10) Hypertension: -initially hypotensive, currently normotensive Status: Chronic Qualifiers: Hypertension type: essential hypertension Qualified Code(s): I10 - Essential (primary) hypertension (11) Morbid obesity: -BMI-31 kg/m2 Status: Chronic (12) Hyponatremia: -previously noted to be hyponatremic, then improved over the course of his hospital stay. Now normalized -continue to monitor Na Status: Resolved Additional A&P Information -acute mild thrombocytopenia noted today; previously normal platelet count, continue to monitor -GI ppx with famotidine -DVT ppx with heparin -Dispo: home -Code status: FULL code Attestations Medical Necessity Statement*: Discharge home today Time Spent in Patient Care: 16 - 35 minutes (>than 50% of time spent in counselling and/or direct pt care on unit). 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 [facility] Fwd Exam Comprehensive Diagnoses Fever of unknown origin R50.9 Sepsis A41.9 Sepsis acute organ dysfunction status: without acute organ dysfunction Sepsis type: sepsis due to unspecified organism Elevated troponin R79.89 Diabetes E11.9; Z79.4 Diabetes mellitus complication status: without complication Diabetes mellitus group home insulin use: with group home use Diabetes mellitus type: type 2 Dyslipidemia E78.5 Combined systolic and diastolic congestive heart failure I50.43 Heart failure chronicity: acute on chronic Acute renal failure N17.0 Acute renal failure type: with acute tubular necrosis CAD (coronary artery disease) I25.10 Associated angina: without angina Coronary Disease-Associated Artery/Lesion type: [place] artery [place] vs. transplanted heart: [place] heart Legionella pneumonia A48.1 Hypertension I10 Hypertension type: essential hypertension Morbid obesity E66.01 Hyponatremia E87.1
--- NOTE | 2019-11-10 11:59 | PC.NURSE ---
patient denies the need for insulin patient educated high blood glucose and the effects patient continues to refuse insulin therapy
--- NOTE | 2019-11-10 12:29 | PC.NURSE ---
Dr. Hurd at bedside for assessment and discussion of POC with patient
--- NOTE | 2019-11-10 12:49 | P.PN_ITS ---
Subjective Subjective: Interval history: No complaints. Medications: Reviewed: Yes Medication Review Details: Current Medications Acetaminophen (Tylenol) 650 mg PO Q6H PRN PRN Reason: Mild/Mod Pain Or Temp >/= 101 Hydrocodone Bitart/Acetaminophen ([place] 5-325 Mg) 1 tab PO Q4H PRN PRN Reason: MODERATE PAIN Allopurinol (Zyloprim) 100 mg PO DAILY [facility] Last Admin: 11/10/19 08:53 Dose: 100 mg Documented by: Aspirin (Aspirin Ec) 81 mg PO DAILY [facility] Last Admin: 11/10/19 08:53 Dose: 81 mg Documented by: Atorvastatin Calcium (Lipitor) 40 mg PO BEDTIME [facility] Last Admin: 11/09/19 19:59 Dose: 40 mg Documented by: Dextrose (D50w) 25 ml IVP ONCE PRN; Protocol PRN Reason: hypoglycemia protocol Dextrose (D50w) 50 ml IVP PRN PRN; Protocol PRN Reason: hypoglycemia protocol Famotidine (Pepcid Inj) 20 mg IVP Q12H [facility] Last Admin: 11/10/19 07:29 Dose: 20 mg Documented by: Glucagon (Glucagen) 1 mg IM ONCE PRN; Protocol PRN Reason: Adult Acute Hypoglycemia Prot. Heparin Sodium (Beef Lung) (Heparin) 5,000 unit SUBCUT Q12H [facility] Last Admin: 11/10/19 07:31 Dose: Not Given Documented by: Piperacillin Sod/Tazobactam (Sod 3.375 gm/ Sodium Chloride) 50 mls @ 12.5 mls/hr IV Q8H [facility]; Protocol Last Admin: 11/10/19 12:21 Dose: 12.5 mls/hr Documented by: Dextrose (D5w) 500 mls @ 100 mls/hr IV ONCE PRN; Protocol PRN Reason: Adult Acute Hypoglycemia Prot Insulin Aspart (Novolog) 0 unit SUBCUT WM&BEDTIME [facility]; Protocol Last Admin: 11/10/19 11:58 Dose: Not Given Documented by: Isosorbide Mononitrate (Imdur) 15 mg PO Q12H [facility] Last Admin: 11/10/19 07:29 Dose: 15 mg Documented by: Morphine Sulfate (Morphine) 2 mg IVP Q4H PRN PRN Reason: SEVERE PAIN Ondansetron HCl (Zofran) 4 mg IVP Q6H PRN PRN Reason: NAUSEA AND VOMITING Vitals/I&O/Wt Last Vital Signs Temp 97.8 F 11/10/19 10:59 Pulse 57 L 11/10/19 10:59 Resp 20 H 11/10/19 10:59 BP 108/74 11/10/19 10:59 Pulse Ox 96 11/10/19 10:59 11/09/19 11/10/19 11/10/19 22:59 06:59 14:59 Intake Total 770 / 1180 199.583 / 1379.583 650 / 650 Output Total 1250 / 1900 1250 / 3150 700 / 700 Balance -480 / -720 -1050.417 / -1770.417 -50 / -50 Weight last 48 hrs Weight 239 lb Weight 238 lb 3.2 oz Weight 240 lb Physical Exam Const: COMMON NORMALS: no acute distress and patient oriented x3 GENERAL APPEARANCE: cooperative and comfortable ORIENTATION/CONSCIOUSNESS: Yes awake HENMT: COMMON NORMALS: normocephalic and atraumatic HEAD & SCALP: normocephalic and atraumatic Eye: COMMON NORMALS: Equal, round and reactive pupils present, EOMs intact bilaterally and conjunctivae normal CONJUNCTIVA: Yes conjunctivae normal PUPIL: Yes Equal, round and reactive pupils present Neck/C-Spine: COMMON NORMALS: full ROM Resp: COMMON NORMALS: clear to auscultation bilaterally AUSCULTATION: clear to auscultation bilaterally Cardio: COMMON NORMALS: regular rate, regular rhythm, S1 normal heart sound present and S2 normal heart sound present RATE: regular rate RHYTHM: regular rhythm HEART SOUNDS: S1 normal heart sound present and S2 normal heart sound present Extremity: COMMON NORMALS: normal to inspection, full ROM and no pedal edema Neuro: COMMON NORMALS: patient oriented x3 Psych: COMMON NORMALS: Normal thought process present and speech normal SPEECH: Yes normal speech THOUGHT PROCESS: Normal thought process present Sepsis: Is patient septic: Yes Focused sepsis exam performed: Yes Date exam was performed: 11/08/19 Time exam was performed: 17:45 Data : 11/10/19 04:03 11/10/19 04:03 Micro: Microbiology 11/10/19 09:48 Blood Culture - Preliminary Blood SPECIMEN COLLECTED 11/10/19 09:48 Blood Culture - Preliminary Blood SPECIMEN COLLECTED 11/08/19 14:42 Blood Culture - Preliminary Blood Gram positive cocci 11/08/19 14:50 Blood Culture - Preliminary Blood NEGATIVE TO DATE A&P Assessment and plan (1) Sepsis: * recent Legionella pneumonia, treated with course of Levaquin; currently on broad spectrum antibiotics for now * management as per primary team. Status: Resolved Qualifiers: Sepsis acute organ dysfunction status: without acute organ dysfunction Sepsis type: sepsis due to unspecified organism Qualified Code(s): A41.9 - Sepsis, unspecified organism (2) Elevated troponin: He has known hx of CAD s/p PCI x 3 10 years back after MD. He was not following with a catering truck driver as an outpatient. Even though, troponin elevated more when compared to last admission; there is no significant delta change. -No chest pains. I believe this is type 2 NSTEMI in setting of sepsis -continue nitrates, ASA, statin. Status: Acute (3) Combined systolic and diastolic congestive heart failure: Appears fairly compensated. -Once patient has cleared his infection, will plan for coronary angiogram as an outpatient. F/u in [address] Leary. Status: Chronic Qualifiers: Heart failure chronicity: acute on chronic Qualified Code(s): I50.43 - Acute on chronic combined systolic (congestive) and diastolic (congestive) heart failure (4) CAD (coronary artery disease): continue ASA and statin Status: Chronic Qualifiers: Associated angina: without angina Coronary Disease-Associated Artery/Lesion type: [place] artery [place] vs. transplanted heart: [place] heart Qualified Code(s): I25.10 - Atherosclerotic heart disease of [place] coronary artery without angina pectoris (5) Diabetes: Status: Chronic Qualifiers: Diabetes mellitus complication status: without complication Diabetes mellitus dedicated intermodal truck driver insulin use: with dedicated intermodal truck driver use Diabetes mellitus type: type 2 Qualified Code(s): E11.9 - Type 2 diabetes mellitus without complications; Z79.4 - FDC (current) use of insulin Additional A&P Information Dyslipidemia CKD stage 2 H/O Hypertension : BP soft presently, received ~2 L IVF in ER, closely monitor. Anemia Thank you for allowing me to participate in patient's care. Please feel free to call with questions and concerns. 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 transplanted heart: [place] heart Diabetes E11.9; Z79.4 Diabetes mellitus complication status: without complication Diabetes mellitus dedicated intermodal truck driver insulin use: with skilled nursing use Diabetes mellitus type: type 2
--- NOTE | 2019-11-10 12:59 | P.DS_ITS ---
Discharge Providers Date of Admission: 11/08/19 16:41 Date of Discharge: November 10, 2019 Attending Provider at Admission: Corin Hurd MD Attending Provider at Discharge: Corin Hurd MD Primary Care Provider: Shae May DO Diagnoses at Discharge Discharge Diagnosis (1) Fever of unknown origin: Status: Acute Problem details: -noted to have fever with Tmax of 101 F on admission, unclear etiology. Has been afebrile since -associated sepsis given fever, leukocytosis, hypotension; all of which has resolved given hemodynamic stability, resolved leukocytosis, no fever -close monitoring of hemodynamic status -recent Legionella pneumonia, treated with course of Levaquin -Repeat bacterial antigens and Legionella negative -would cover with broad spectrum antibiotics for now, Zosyn -blood cx: / bottles positive for GPC, likely contaminant but will order repeat set -received 2 L bolus in ED; would avoid continued IVF due to risk of fluid overload -WBC normalized -lactic acid-1.1 -CXR appears improved, CTA chest shows resolved infiltrates as well -not oxygen dependent at baseline; supplemental oxygen as needed -no change in mental status, no rash, noted N/V with no other GI or symptoms; UA negative -ABG noted with respiratory alkalosis and hypoxia -low suspicion for infection but in light of recent admission, initial fever, questionable + blood cx and need for coronary angiogram, would continue broad- spectrum antibiotics for a few more days (2) Sepsis: Status: Resolved Problem details: -as noted above Qualifiers: Sepsis acute organ dysfunction status: without acute organ dysfunction Sepsis type: sepsis due to unspecified organism Qualified Code(s): A41.9 - Sepsis, unspecified organism (3) Elevated troponin: Status: Acute Problem details: -has known hx of CAD s/p PCI x 3 -noted to have elevated troponin during last admission, higher today though no significant delta -likely secondary to demand ischemia -Echo (10/26): EF=35%, global LV hypokinesis, G3DD -unable to look up previous ECGs for comparison -telemetry monitoring -Cardiology consult by Dr. 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 (5) Dyslipidemia: Status: Chronic Problem details: -recent lipid panel noted -on statin now that CPK normalized (6) 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 Problem details: -does not look clinically overloaded -had Echo done during last admission with EF=35% -would not continue IVF due to risk of fluid overload Qualifiers: Heart failure chronicity: acute on chronic Qualified Code(s): I50.43 - Acute on chronic combined systolic (congestive) and diastolic (congestive) heart failure (7) Acute renal failure: Status: Acute Problem details: -renal function improved -continue to monitor renal function; current renal function may be new baseline -avoid nephrotoxins, renally dose meds -continue to monitor urine output -appears to have at least CKD stage 2 Qualifiers: Acute renal failure type: with acute tubular necrosis Qualified Code(s): N17.0 - Acute kidney failure with tubular necrosis (8) CAD (coronary artery disease): Status: Chronic Problem details: -as noted above -seems to have baseline HR in the 50-60 range; some readings of tachycardia in ED, which are likely not accurate Qualifiers: Coronary Disease-Associated Artery/Lesion type: [place] artery [place] vs. transplanted heart: [place] heart Associated angina: without angina Qualified Code(s): I25.10 - Atherosclerotic heart disease of [place] coronary artery without angina pectoris (9) Legionella pneumonia: Status: Resolved Problem details: -recently treated with course of Levaquin and steroids -repeat imaging improved -repeat Legionella antigen negative (10) Hypertension: Status: Chronic Problem details: -initially hypotensive, currently normotensive Qualifiers: Hypertension type: essential hypertension Qualified Code(s): I10 - Essential (primary) hypertension (11) Morbid obesity: Status: Chronic Problem details: -BMI-31 kg/m2 (12) Hyponatremia: Status: Resolved Problem details: -previously noted to be hyponatremic, then improved over the course of his hospital stay. Now normalized -continue to monitor Na Other Information Additional DC diagnoses/information: -acute mild thrombocytopenia noted today; previously normal platelet count, continue to monitor Reason for Visit Reason for Visit: fever Hospital Course Hospital Course: Patient was admitted to the ICU secondary to need for close hemodynamic status monitoring as had been somewhat hypotensive in the ER and with ejection fraction of 35% was not going to receive aggressive IV fluid hydration to prevent fluid overload. He was noted to be febrile with a T-max of 101 and given recent admission and treatment for Legionella pneumonia had repeat infectious work-up done including repeat CT chest, chest x-ray, blood cultures, bacterial antigens and Legionella. Imaging has improved significantly compared to most recent admission, 1 out of 4 bottles of initial blood cultures is positive for gram-positive cocci which is likely contamination but repeat set has been ordered. Bacterial antigens and Legionella are negative. Patient has been afebrile for 48 hours, hemodynamically stable with noted baseline bradycardia, on room air, with resolved leukocytosis. He was covered with empiric broad-spectrum IV antibiotics. Cardiology was consulted due to noted elevated troponin, patient had been evaluated previously with recommendation made for repeat coronary angiogram once infection was resolved. Despite noted elevated troponin there was no significant delta noted, no EKG changes and patient has been chest pain-free throughout his hospitalization. Once more hemodynamically stable he was moved to CSU for continued monitoring. Patient is quite eager to go home as he is feeling well and will have close follow-up with cardiology in the next 2 weeks to determine timing of coronary angiogram. In light of recent admission, initial fever, questionable positive blood cultures, need for procedure he will be continued on broad-spectrum oral antibiotics for the next several days. He is advised to seek medical attention immediately should he have any chest pain, shortness of breath, fever/chills. He will need follow-up labs to monitor his platelet count as well as his renal function particularly in anticipation of coronary angiogram. He is a newly diagnosed diabetic, Accu-Cheks were closely monitored and he had a very low requirement for insulin during his hospital stay. Of note patient was not screened for COVID-19 during this hospital stay as he had recently been tested on 10/26 and this was negative. There were no new symptoms that would have required repeat testing. Discharge Summary: -Patient to follow-up with primary care provider within 1 week. He will need repeat CBC and BMP to monitor his platelet count and renal function respectively -Patient to follow-up with cardiology in 2 weeks to determine timing of coronary angiogram Physical Exam Const: COMMON NORMALS: no acute distress and patient oriented x3 GENERAL APPEARANCE: cooperative, comfortable and appears older than stated age; not ill appearing ORIENTATION/CONSCIOUSNESS: Yes awake HENMT: COMMON NORMALS: normocephalic, atraumatic, hearing grossly normal bilaterally and moist oral mucous membranes HEAD & SCALP: normocephalic and atraumatic Eye: COMMON NORMALS: Equal, round and reactive pupils present, EOMs intact bilaterally and conjunctivae normal CONJUNCTIVA: Yes conjunctivae normal PUPIL: Yes Equal, round and reactive pupils present Neck/C-Spine: COMMON NORMALS: full ROM GENERAL: Yes normal visual inspection and Yes trachea midline Chest: CHEST: Yes Symmetrical chest wall rise Resp: COMMON NORMALS: normal respiratory effort, No retractions, No use of accessory muscles and clear to auscultation bilaterally EFFORT & INSPECTION: Yes able to speak in complete sentences, Yes symmetric chest movement and No tachypneic AUSCULTATION: clear to auscultation bilaterally OTHER: -on RA Cardio: COMMON NORMALS: regular rate, regular rhythm, S1 normal heart sound present, S2 normal heart sound present and No murmurs present (Cardio) RATE: regular rate RHYTHM: regular rhythm HEART SOUNDS: S1 normal heart sound present and S2 normal heart sound present GI: COMMON NORMALS: Normal to inspection, nondistended, normoactive bowel sounds present, Soft to palpation and non-tender INSPECTION: Yes central obesity PALPATION: Yes Soft to palpation Extremity: COMMON NORMALS: normal to inspection, full ROM, no clubbing, cyanosis or edema and no pedal edema GENERAL: No calf tenderness Neuro: COMMON NORMALS: patient oriented x3, moves all extremities, no focal motor deficits and no sensory deficits noted Psych: COMMON NORMALS: mental status grossly normal, Normal thought process present, cooperative, normal affect and speech normal SPEECH: Yes normal speech THOUGHT PROCESS: Normal thought process present Skin: COMMON NORMALS: no rashes or lesions noted, no jaundice, no petechiae and no mottling GENERAL SKIN EXAM: no rashes or lesions noted Discharge Data Data Completed and Pending: Completed Studies During Hospitalization Category Date Time Status CT angio chest PE protcl [id number] Stat Cat Scan 11/08/19 15:33 Completed XR chest 1V mateo ble [id number] Stat Exams 11/08/19 14:43 [place] [id number] Urgent Ultrasound 11/08/19 15:31 Completed Pending at discharge Category Date Time Status Blood Culture Sta t Lab 11/08/19 14:50 Results Blood Culture Sta t Lab 11/10/19 09:48 Results Labs from last 24 hours 11/10/19 11/10/19 11/10/19 10:48 06:19 04:03 WBC RBC Hgb Hct MCV MCH MCHC RDW Plt Count MPV Neut % (Auto) Lymph % (Auto) [place] % (Auto) Eos % (Auto) Baso % (Auto) Neut # (Auto) Lymph # (Auto) [place] # (Auto) Eos # (Auto) Baso # (Auto) Nucleated RBC % (a uto) Nucleated RBCs # Sodium 137 Potassium 4.2 Chloride 102 Carbon Dioxide 26 Anion Gap 13.2 BUN 20 Creatinine 1.6 H GFR Calculation 46.6 L Glucose 117 H POC Glucose 162 137 Calculated Osmolal ity 282 L Calcium 8.9 11/10/19 11/09/19 11/09/19 04:03 19:43 16:32 WBC 7.1 RBC 3.74 L Hgb 11.1 L Hct 34.8 L MCV 93.0 MCH 29.7 MCHC 31.9 RDW 13.5 Plt Count 126 L MPV 10.3 Neut % (Auto) 55.5 Lymph % (Auto) 31.3 [place] % (Auto) 10.5 Eos % (Auto) 2.0 Baso % (Auto) 0.4 Neut # (Auto) 3.9 Lymph # (Auto) 2.2 [place] # (Auto) 0.7 Eos # (Auto) 0.1 Baso # (Auto) 0.0 Nucleated RBC % (a uto) 0 Nucleated RBCs # 0.0 Sodium Potassium Chloride Carbon Dioxide Anion Gap BUN Creatinine GFR Calculation Glucose POC Glucose 128 147 Calculated Osmolal ity Calcium 11/09/19 11:28 WBC RBC Hgb Hct MCV MCH MCHC RDW Plt Count MPV Neut % (Auto) Lymph % (Auto) [place] % (Auto) Eos % (Auto) Baso % (Auto) Neut # (Auto) Lymph # (Auto) [place] # (Auto) Eos # (Auto) Baso # (Auto) Nucleated RBC % (a uto) Nucleated RBCs # Sodium Potassium Chloride Carbon Dioxide Anion Gap BUN Creatinine GFR Calculation Glucose POC Glucose 170 Calculated Osmolal ity Calcium Vitals: Last Vital Signs Temp 97.8 F 11/10/19 10:59 Pulse 57 L 11/10/19 10:59 Resp 20 H 11/10/19 10:59 BP 108/74 11/10/19 10:59 Pulse Ox 96 11/10/19 10:59 Discharge Plan Discharge Patient Disposition: Home, Self-Care Condition: Stable Prescriptions: New atorvastatin 40 mg Tablet 40 mg PO BEDTIME 30 Days Qty: 30 RF: 0 doxycycline monohydrate 100 mg capsule 100 mg PO BID 7 Days Qty: 14 RF: 0 Continued allopurinol 100 mg Tablet 100 mg PO DAILY Qty: 30 RF: 1 aspirin 81 mg Tablet,Delayed Release (Dr/Ec) 81 mg PO DAILY Qty: 30 RF: 1 Levemir U-100 Insulin 100 unit/mL Solution 6 unit SUBCUT BEDTIME Qty: 10 RF: 0 isosorbide mononitrate 30 mg Tablet Extended Release 24 Hr 15 mg PO Q12H Qty: 60 RF: 1 albuterol sulfate [ProAir HFA] 90 mcg/actuation HFA aerosol inhaler 2 inh INHALATION QID PRN (Reason: shortness of breath or wheezing) Qty: 18 RF: 0 Discharge Orders: Discharge Order (Routine); Ordered 11/10/19 Ordered By: Corin Hurd Referrals: Shae May DO [Primary Care Provider] - 4-7 days (Post hospital discharge follow up. Will need repeat CBC, BMP to monitor platelet count and renal function respectively. ) Albertina Balderrama MD [Physician] - 2 weeks (Post hospital discharge follow up. Pending cath) Discharge Diet: Cardiac Discharge Activity: Increase activity as tolerated Discharge Attestations Time Spent in Discharge Care*: greater than 30 min Specific Discharge Activities: Specific discharge activities: educating patient, discussing with manager case/social workers/dc planners, documenting/other paperwork and evaluating patient/reviewing data Status at Discharge: Cognitive status at discharge: cognitively intact , Behavioral status at discharge: cooperative , Functional status at discharge: independent ambulation Overall status at discharge: patient is progressing back to baseline Quality Metrics Clinical Quality Measures During this hospital stay, did patient experience: None Coding Level of Care Code Acute Hand Mica Plate Layer for [facility] Fwd Diagnoses Fever of unknown origin R50.9 Sepsis A41.9 Sepsis acute organ dysfunction status: without acute organ dysfunction Sepsis type: sepsis due to unspecified organism Elevated troponin R79.89 Diabetes E11.9; Z79.4 Diabetes mellitus type: type 2 Diabetes mellitus [facility] & president insulin use: with [facility] use Diabetes mellitus complication status: without complication Dyslipidemia E78.5 Combined systolic and diastolic congestive heart failure I50.43 Heart failure chronicity: acute on chronic Acute renal failure N17.0 Acute renal failure type: with acute tubular necrosis CAD (coronary artery disease) I25.10 Coronary Disease-Associated Artery/Lesion type: [place] artery [place] vs. transplanted heart: [place] heart Associated angina: without angina Legionella pneumonia A48.1 Hypertension I10 Hypertension type: essential hypertension Morbid obesity E66.01 Hyponatremia E87.1
--- NOTE | 2019-11-10 14:20 | PC.NURSE ---
Dr Balderrama at bedside for assessment and POC. Dr balderrama asked reported to this nurse patient was good to go after abx finished. This nurse discussed with patient to finish running ABX before discharging; patient in agreement.
[2019-11-10 14:55] VITALS: BP 122/85; PULSE 57; RESP 20; TEMP 36.5; O2SAT 98
[2019-11-10 15:59] VITALS: BP 122/85; PULSE 57; RESP 20; TEMP 36.5; O2SAT 98
--- NOTE | 2019-11-10 16:45 | PC.NURSE ---
patient discharged home at this time patient alert and oriented and in stable condition. Discharge instructions provided and explained; verbalization of understanding obtained. Iv discontinued cath intact min bleeding noted. patient assisted to private vehicle by staff via wheel chair. All patient belongings including copy of discharge instructions in hand.
== END 2019-11-10 16:30 | disposition home or self-care (01) | DRG 871 ==
LOC: ER 16:42 → ICU 17:08 → CSU 11-09 19:29
PROVIDERS: Family Medicine; Admitting Provider Family Medicine; PCP Family Medicine; Visit Provider Family Medicine
DX: A41.9 Sepsis, unspecified organism (principal); I50.43 Acute on chronic combined systolic (congestive) and diastolic (congestive) heart failure; N17.0 Acute kidney failure with tubular necrosis; A48.1 Legionnaires' disease; J18.9 Pneumonia, unspecified organism; I13.0 Hypertensive heart and chronic kidney disease with heart failure and stage 1 through stage 4 chronic kidney disease, or unspecified chronic kidney disease; E87.1 Hypo-osmolality and hyponatremia; I24.8 Other forms of acute ischemic heart disease; E87.3 Alkalosis; N18.2 Chronic kidney disease, stage 2 (mild); E11.22 Type 2 diabetes mellitus with diabetic chronic kidney disease; Z79.4 Long term (current) use of insulin; I25.10 Atherosclerotic heart disease of native coronary artery without angina pectoris; Z95.5 Presence of coronary angioplasty implant and graft; E78.5 Hyperlipidemia, unspecified; E66.01 Morbid (severe) obesity due to excess calories; Z68.30 Body mass index [BMI] 30.0-30.9, adult; Z87.891 Personal history of nicotine dependence; Z87.01 Personal history of pneumonia (recurrent); D69.6 Thrombocytopenia, unspecified
CPT/HCPCS: 12345; 36415; 36416; 36600; 71045; 71275; 80048; 80051; 80053; 81003; 82009; 82550; 82810; 82962; 83605; 83690; 83986; 84484; 85025; 85730; 86403; 87040; 87205; 87449; 93005; 93970; 94640; 96372; 96375; 99284; A9270; J0744; J1644; J1815; J2405; J2543; J3370; J3490; J7050; Q9967

== ENCOUNTER → 2019-11-30 09:31 | Outpatient (BNVA) | payer SELFPAY | PROVIDERS: PCP Family Medicine; Visit Provider Internal Medicine Cardiovascular Disease | DX: I25.10 Atherosclerotic heart disease of native coronary artery without angina pectoris (principal); I51.9 Heart disease, unspecified; R79.89 Other specified abnormal findings of blood chemistry | CPT/HCPCS: 80048; 85025 ==

== ENCOUNTER 2020-05-01 12:47 | Outpatient (CLI) | payer SELFPAY ==
--- NOTE | 2020-05-01 13:32 | XRR_ITS ---
PROCEDURE INFORMATION: Exam: XR Chest, 2 Views Exam date and time: 05/01/2020 1:41 PM Age: 49 years old Clinical indication: Chest pain; Type not specified; Prior surgery; Surgery date: <1 month; Additional info: Pain/s/p open heart surgery TECHNIQUE: Imaging protocol: XR of the chest Views: 2 views. COMPARISON: CR XR chest 1V portable [id number] 11/08/2019 2:49 PM FINDINGS: Lungs: Unremarkable. No consolidation. Pleural space: Unremarkable. No pleural effusion. No pneumothorax. Heart/Mediastinum: Unremarkable. No cardiomegaly. Bones/joints: Metallic sternotomy wires are in place. XR/XR chest 2V* [id number] IMPRESSION: 1. No acute findings. 2. Metallic sternotomy wires are in place
== END 2020-05-01 12:48 | disposition home or self-care (01) ==
LOC: RAD 12:49
PROVIDERS: PCP Registered Nurse; Visit Provider Registered Nurse
DX: R10.33 Periumbilical pain (principal)
CPT/HCPCS: 71046

== ENCOUNTER 2023-01-04 18:08 | Emergency (ER) | payer OTHER, SELFPAY ==
[2023-01-04 18:10] VITALS: BP 145/91; PULSE 71; TEMP 36.3; O2SAT 99; BMI 32.7
--- NOTE | 2023-01-04 18:18 | W.ED.WOUNDLC ---
HPI - Wound/Laceration General: Chief Complaint: Wound/Laceration Stated Complaint: Rt Leg Injury Time Seen by Provider: 01/04/23 18:17 History of Present Illness: Patient comes in due to bleeding from a with injury to the right lateral leg. Patient was cutting a strap from a box when it excellently slipped and cut him on the side of the leg. Patient jabbed the leg with a box cutting knife. Patient has a 2-1/2 cm laceration to the lateral leg with a noticeable blood clot within the wound. Patient's immunization for tetanus was up-to-date in 2019. Patient does have a history of coronary artery disease and takes aspirin routinely. Patient moves all extremities well. Patient appears nontoxic. Patient came in due to persistent bleeding of the wound site. Review of Systems General: Reports: 10 or more systems reviewed and unremarkable except in HPI and below Skin/Breast: Reports: new lesions [facility] ED PFS: Medical History (Updated 01/04/23 @ 19:23 by ALLEN Aragon) CAD (coronary artery disease) -as noted above -seems to have baseline HR in the 50-60 range; some readings of tachycardia in ED, which are likely not accurate Combined systolic and diastolic congestive heart failure -does not look clinically overloaded -had Echo done during last admission with EF=35% -would not continue IVF due to risk of fluid overload Coronary artery disease PCI x3 Diabetes -newly diagnosed, last week and started on insulin -A1c-8.1 -Accuchecks, ISS, hypoglycemia precautions; so far has not needed any insulin Dyslipidemia -recent lipid panel noted -on statin now that CPK normalized Hypertension -initially hypotensive, currently normotensive Hyperuricemia LV dysfunction Morbid obesity -BMI-31 kg/m2 Family History Other Hypertension Social History Smoking and tobacco status: former smoker Quit status (tobacco): has quit using tobacco Former quit date comment: Quit smoking 1 month ago because of shortness of breath and orthopnea Alcohol intake: never Substance/Drug Use: never Lives independently: Yes Housing: House 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 Physical Exam Const: COMMON NORMALS: alert HENMT: COMMON NORMALS: normocephalic HEAD & SCALP: normocephalic Neck/C-Spine: COMMON NORMALS: full ROM Resp: COMMON NORMALS: normal respiratory effort and clear to auscultation bilaterally AUSCULTATION: clear to auscultation bilaterally Cardio: COMMON NORMALS: regular rate RATE: regular rate Back/Pelvis: COMMON NORMALS: thoracic and lumbar spine normal to inspection Extremity: RIGHT LOWER EXTREMITY: Yes upper leg (Lateral right leg 2-1/2 cm laceration linear) Neuro: SENSORIUM/ORIENTATION: Yes alert Skin: COMMON NORMALS: turgor normal GENERAL SKIN EXAM: turgor normal Procedures Laceration Laceration 1: Site: lower extremity Side (If applicable): right Size (cm): 2.5 Description: linear Local Anesthetic: lidocaine 1% Amount of anesthesia used (mL): 10 Pre-repair: wound explored and irrigated extensively Skin layer closed with: nylon Size (cm): 4-0 Number of sutures: 4 Technique: simple, interrupted (1) and horizontal mattress (3) Course Vital Signs: Vital signs: Vital Signs Temperature 97.4 F L 01/04/23 18:10 Pulse Rate 71 01/04/23 18:10 Blood Pressure 145/91 01/04/23 18:10 Pulse Oximetry 99 01/04/23 18:10 Oxygen Delivery Me thod Room Air 01/04/23 18:10 MDM - Wound/Laceration Medical Decision Making Patient comes in for laceration to the right lower leg. On exam patient has a 2 and half centimeter laceration to the right lower leg that has active bleeding. Bleeding is controlled with pressure. Patient moves extremities well. No signs of tendon injury. Differential diagnosis includes but not limited to laceration, need for tetanus, vascular injury. Believe the patient probably has a small laceration to varicose vein which is increased the bleeding. Wound was closed with [id number] stitches x3 and bleeding was controlled. Patient was placed in a light pressure dressing and was recommended to keep the dressing intact for the next 48 hours. Discussed monitoring site for signs of infection and follow-up with primary care in 2 to 3 days for recheck. Return to ED for new concerns. Discharge Plan Discharge Patient Disposition: Home Clinical Impression: Laceration of leg, right Qualifiers: Encounter type: initial encounter Qualified Code(s): S81.811A - Laceration without foreign body, right lower leg, initial encounter Condition: Stable Prescriptions: New cephalexin 500 mg capsule 500 mg PO Q8H 7 Days Qty: 21 0RF No Action carvedilol 3.125 mg tablet 3.125 mg PO BID Qty: 60 3RF Rx Instructions: must administer with a meal/food isosorbide mononitrate 30 mg tablet extended release 24 hr 15 mg PO Q12H Qty: 30 0RF bumetanide 2 mg Tablet 2 mg PO DAILY allopurinol 100 mg Tablet 100 mg PO DAILY Qty: 30 1RF aspirin 81 mg Tablet,Delayed Release (Dr/Ec) 81 mg PO DAILY Qty: 30 1RF Levemir U-100 Insulin 100 unit/mL Solution 6 unit SUBCUT BEDTIME Qty: 10 0RF Rx Instructions: pt has not taken in 21 days due to sugars being normal albuterol sulfate [ProAir HFA] 90 mcg/actuation HFA aerosol inhaler 2 inh INHALATION QID PRN (Reason: shortness of breath or wheezing) Qty: 18 0RF Discharge Orders: Discharge ED (Routine); Ordered 01/04/23 Ordered By: Mohamud Chen Referrals: Nirmal Neville [Primary Care Provider] - Discharge Diet: Usual diet Discharge Activity: Increase activity as tolerated Patient Instructions: Laceration (ED) Activity Restrictions/Additional Instructions: Home and rest. Leave pressure dressing intact for the next 48 hours. Keep dressing clean and dry. Take antibiotics as directed. Sutures need to come out in 10 days. Follow-up with primary care in 2 to 3 days for recheck. Return to the ER for high fever, increased swelling to the lower leg, or new concerns. Stand Alone Forms: Work/School Release Coding Level of Care Code ED Dice Manager for Kaelyn Guevara
[2023-01-04] MEDS: cephALEXin 500 mg Capsule PO (19:32)
[2023-01-04] MEDS: lidocaine 1% INJ 10 mL (per mL) INJECTION (19:32)
== END 2023-01-04 19:35 | disposition home or self-care (01) ==
PROVIDERS: Emergency Provider Nurse Practitioner Family; PCP Family Medicine
DX: S81.811A Laceration without foreign body, right lower leg, initial encounter (principal); Z79.82 Long term (current) use of aspirin; Z79.4 Long term (current) use of insulin; Z87.891 Personal history of nicotine dependence; I25.10 Atherosclerotic heart disease of native coronary artery without angina pectoris; I11.0 Hypertensive heart disease with heart failure; I50.40 Unspecified combined systolic (congestive) and diastolic (congestive) heart failure; E78.5 Hyperlipidemia, unspecified; E11.9 Type 2 diabetes mellitus without complications; W26.0XXA Contact with knife, initial encounter
CPT/HCPCS: 12001; 99283; E0114

== ENCOUNTER 2023-04-06 07:29 | Emergency (ER) | payer OTHER, SELFPAY ==
[2023-04-06 07:32] VITALS: BP 168/109; PULSE 74; RESP 18; TEMP 36.5; O2SAT 100; BMI 33.1
--- NOTE | 2023-04-06 07:33 | ECG_ITS ---
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 Measurements Intervals [place] Rate: 67 P: 0 VT: 225 QRS: -35 QRSD: 189 T: 139 QT: 444 QTc: 471 Interpretive Statements SINUS RHYTHM WITH FIRST DEGREE AV BLOCK POSSIBLE LEFT ATRIAL ENLARGEMENT [-0.1mV P-WAVE IN V1/V2] LEFT AXIS DEVIATION [QRS AXIS < -30] LEFT BUNDLE BRANCH BLOCK [120+ ms QRS DURATION, 80+ ms Q/S IN V1/V2, 85+ ms R IN I/aVL/V5/V6] LATERAL MYOCARDIAL INFARCTION , PROBABLY RECENT [40+ ms Q WAVE AND/OR ST/T ABNORMALITY IN I/aVL/V5/V6] ACUTE ID Compared to ECG 11/08/2019 23:26:47 First degree AV block now present .Left-axis deviation now present Left bundle-branch block now present. Sinus bradycardia no longer present Intraventricular conduction delay no longer present.Myocardial infarct finding still present Electronically Signed On 04-06-2023 23:16:03 PBX TEACHER by Kadi Sales M.D. [email or web address]
--- NOTE | 2023-04-06 07:43 | ED_ITS ---
HPI - Abdominal Pain General: Chief Complaint: Abdominal Pain Stated Complaint: right side abd pain, n/v/d Time Seen by Provider: 04/06/23 07:33 Source: patient Mode of arrival: ambulatory History of Present Illness: 52-year-old male presents emergency room with complaint of right upper quadrant abdominal pain. He has a known history of coronary artery disease He is not having any chest pain at this time. About 2 years ago he had a bypass. He has been nauseous but not vomited he has had a few dry heaves he has had no diarrhea denies any hematochezia or melena. He has not noticed anything that improves or worsens the pain. No previous abdominal surgeries. MD elicited complaint: abdominal pain Onset (ago): day(s) Pain Consistency: intermittent Location: RUQ Quality: sharp Exacerbating factors: nothing Relieving factors: nothing Associated Symptoms: Reports nausea; Denies anorexia, belching, bloating, change in bowel habits, change in stool character, chills, coffee ground emesis, constipation, GI cramping, diarrhea, dyspepsia, dysuria, excessive flatus, fever(s), heartburn, hematochezia, hematuria, hematemesis, fecal incontinence, loose stools, melena, poor appetite, syncope and vomiting Review of Systems Const: Denies: fever(s) or chills Card: Reports: chest pain (Brief episode last night lasted seconds); Denies: syncope Resp: Denies: dyspnea GI: Reports: abdominal pain and nausea; Denies: vomiting, hematemesis, coffee ground emesis, heartburn, diarrhea, constipation, bloating, GI cramping, belching, excessive flatus, fecal incontinence, change in bowel habits, change in stool character, hematochezia or melena : Denies: dysuria or hematuria Musc: Denies: neck pain or back pain Skin/Breast: Denies: rash PFSH ED PFSH: Medical History CAD (coronary artery disease) -as noted above -seems to have baseline HR in the 50-60 range; some readings of tachycardia in ED, which are likely not accurate Combined systolic and diastolic congestive heart failure -does not look clinically overloaded -had Echo done during last admission with EF=35% -would not continue IVF due to risk of fluid overload Coronary artery disease PCI x3 Diabetes -newly diagnosed, last week and started on insulin -A1c-8.1 -Accuchecks, ISS, hypoglycemia precautions; so far has not needed any insulin Dyslipidemia -recent lipid panel noted -on statin now that CPK normalized Hypertension -initially hypotensive, currently normotensive Hyperuricemia LV dysfunction Morbid obesity -BMI-31 kg/m2 Family History Other Hypertension Social History Smoking and tobacco/nicotine status: former use of tobacco/nicotine Quit status (tobacco/nicotine): has quit using Former quit date comment: Quit smoking 1 month ago because of shortness of breath and orthopnea Alcohol intake: never Substance/Drug Use: never Lives independently: Yes Housing: House 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 Physical Exam Const: GENERAL APPEARANCE: cooperative and comfortable ORIENTATION/CONSCIOUSNESS: Yes awake, Yes oriented to person, Yes oriented to place and Yes oriented to time HENMT: COMMON NORMALS: normocephalic, atraumatic and hearing grossly normal bilaterally HEAD & SCALP: normocephalic and atraumatic Resp: COMMON NORMALS: normal respiratory effort, No retractions, No use of accessory muscles and clear to auscultation bilaterally AUSCULTATION: clear to auscultation bilaterally Cardio: COMMON NORMALS: regular rate, regular rhythm and No murmurs present (Cardio) RATE: regular rate RHYTHM: regular rhythm GI: COMMON NORMALS: No hepatosplenomegaly present AUSCULTATION: Yes normoactive bowel sounds PALPATION: Yes Tenderness to palpation present (GI) Details: RUQ, No Guarding due to palpation present (GI) and Yes No hepatosplenomegaly present Extremity: COMMON NORMALS: normal to inspection, capillary refill normal, no clubbing, cyanosis or edema, no calf tenderness and no pedal edema Neuro: SENSORIUM/ORIENTATION: Yes oriented to person, Yes oriented to place and Yes oriented to time Skin: COMMON NORMALS: no rashes or lesions noted GENERAL SKIN EXAM: no rashes or lesions noted Course Vital Signs: Vital signs: Vital Signs Temperature 97.7 F 04/06/23 07:32 Pulse Rate 87 04/06/23 09:00 Respiratory Rate 16 04/06/23 09:00 Blood Pressure 120/84 04/06/23 09:00 Pulse Oximetry 97 04/06/23 09:00 Oxygen Delivery Me thod Room Air 04/06/23 07:32 MDM - Abdominal Pain Medical Decision Making Cholelithiasis without acute cholecystitis. We will discharge patient home on Augmentin and referred to general surgery. Discussed with general surgeon. Discussed dietary changes that can prevent symptoms. Medical Records I reviewed the patient's medical records. Lab Data I reviewed the patient's lab results. 04/06/23 07:48 04/06/23 07:48 Labs/Radiology: Laboratory Results WBC 9.66 10^3/uL (3.29-11.43) 04/06/23 07:48 RBC 5.89 10^6/uL (3.85-5.65) H 04/06/23 07:48 Hgb 17.60 g/dL (11.27-16.99) H 04/06/23 07:48 Hct 53.5 % (37-53) H 04/06/23 07:48 MCV 90.8 fl (82-101) 04/06/23 07:48 MCH 29.9 pg (27-33) 04/06/23 07:48 MCHC 32.9 g/dL (30-55) 04/06/23 07:48 RDW 12.7 % (12.1-15.1) 04/06/23 07:48 Plt Count 256 10^3/cmm (157-399) 04/06/23 07:48 MPV 9.7 fL (7.4-10.4) 04/06/23 07:48 Neut % (Auto) 65.5 % 04/06/23 07:48 Lymph % (Auto) 21.3 % 04/06/23 07:48 Sebastian % (Auto) 9.5 % 04/06/23 07:48 Eos % (Auto) 2.6 % 04/06/23 07:48 Baso % (Auto) 0.8 % 04/06/23 07:48 Neut # (Auto) 6.32 10^3/uL (1.8-7.7) 04/06/23 07:48 Lymph # (Auto) 2.1 10^3/uL (0.8-4.8) 04/06/23 07:48 Sebastian # (Auto) 0.9 10^3/uL (0.2-0.9) 04/06/23 07:48 Eos # (Auto) 0.3 10^3/uL (0.0-0.8) 04/06/23 07:48 Baso # (Auto) 0.1 10^3/uL (0.0-0.1) 04/06/23 07:48 Nucleated RBC % (auto) 0 % 04/06/23 07:48 Nucleated RBCs # 0.0 /100WBC 04/06/23 07:48 Sodium 136 mmol/L (136-145) 04/06/23 07:48 Potassium 4.9 mmol/L (3.5-5.1) 04/06/23 07:48 Chloride 101 mmol/L (98-107) 04/06/23 07:48 Carbon Dioxide 25 mmol/L (22-29) 04/06/23 07:48 Anion Gap 14.9 (5-19) 04/06/23 07:48 BUN 18 mg/dL (6-20) 04/06/23 07:48 Creatinine 1.3 mg/dL (0.7-1.2) H 04/06/23 07:48 GFR Calculation 58.4 mL/min (90-130) L 04/06/23 07:48 Glucose 249 mg/dL (65-115) H 04/06/23 07:48 Calculated Osmolality 292 mOsm/kg (285-295) 04/06/23 07:48 Calcium 9.8 mg/dL (8.5-10.5) 04/06/23 07:48 Total Bilirubin 0.5 mg/dL (0.15-1.2) 04/06/23 07:48 AST 14 U/L (0-40) 04/06/23 07:48 ALT 21 U/L (0-41) 04/06/23 07:48 Alkaline Phosphatase 62 U/L (40-130) 04/06/23 07:48 Troponin T Baseline 33 ng/L (0-15) H 04/06/23 07:48 Troponin T 120 Minute 32.84 ng/L (0-15) H 04/06/23 09:45 Delta Troponin T -0.16 ABS# (0-10) L 04/06/23 09:45 Total Protein 7.3 g/dL (6.6-8.7) 04/06/23 07:48 Albumin 4.5 g/dL (3.5-5.2) 04/06/23 07:48 Globulin 2.8 g/dL (1.3-4.6) 04/06/23 07:48 Lipase 52 U/L (13-60) 04/06/23 07:48 Urine Color Yellow (Yellow) 04/06/23 08:05 Urine Appearance Clear (CLEAR) 04/06/23 08:05 Urine pH 5 (5-7) 04/06/23 08:05 Ur Specific [place] 1.010 (1.005-1.030) 04/06/23 08:05 Urine Protein Neg (Negative) 04/06/23 08:05 Urine Glucose (UA) Trace (Normal) H 04/06/23 08:05 Urine Ketones Negative (Negative) 04/06/23 08:05 Urine Blood Neg (Negative) 04/06/23 08:05 Urine Nitrate Negative (Negative) 04/06/23 08:05 Urine Bilirubin Neg (Negative) 04/06/23 08:05 Urine Urobilinogen Neg mg/dL (Negative) 04/06/23 08:05 Ur Leukocyte Esterase Negative (Negative) 04/06/23 08:05 All radiology interpretation(s) finalized by discharge Discharge Plan Discharge Patient Disposition: Home Clinical Impression: Cholelithiases Condition: Stable Prescriptions: New amoxicillin-pot clavulanate 875-125 mg tablet 1 tab PO BID Qty: 14 0RF No Action furosemide 40 mg tablet 40 mg PO QAM metformin 500 mg tablet 500 mg PO BID carvedilol 6.25 mg tablet 6.25 mg PO BID aspirin 81 mg tablet,delayed release (DR/EC) 81 mg PO QAM Discharge Orders: Discharge ED (Routine); Ordered 04/06/23 Ordered By: Ricki Wills Referrals: Nirmal Neville [Primary Care Provider] - Discharge Activity: Increase activity as tolerated Patient Instructions: Biliary Colic (ED), Opioid Safety, Pain Management Activity Restrictions/Additional Instructions: Thank you for choosing [facility] for your healthcare needs today. Plea se realize this is an emergency room and that we are providing you with a medical screening exam and this may not be complete and all inclusive of all the testing and or work up that you may need to determine your ailment or severity of your illness. It is very important that you follow up as instructed or that you return to the Emergency Department should you have concerns or if your condition changes or worsens in any way. You were seen today with biliary colic symptoms pain associate with gallbladder dysfunction. There is no acute cholecystitis you do not need your gallbladder out emergently. However will need further evaluation of your gallbladder and possibly surgery to remove it. We will refer you to the general surgeon for the the remainder of the work-up. Recommend you avoid fatty foods fried foods tomato-based products citrus foods and red meats as all of these things can exacerbate gallbladder disease. Coding Level of Care Code ED Culinary Worker for Kaelyn Guevara
--- NOTE | 2023-04-06 07:53 | US_ITS ---
WS: [id number] RIGHT UPPER QUADRANT ULTRASOUND HISTORY: Right upper quadrant abdominal pain COMPARISON: None available. Liver: 18.4 cm in length. Liver is slightly enlarged with coarse echotexture. No mass. No bile duct d ilatation. Portal Vein: Normal hepatopetal flow with monophasic waveform. Gallbladder: Gallbladder is slightly contracted. There is shadowing from the gallbladder suggesting s tones. There is also increased soft tissue within the gallbladder lumen. This does not appear to be p eristalsing and may be tumefactive sludge. Short-term follow-up is recommended. No pericholecystic fl uid. CBD: 0.5 cm Pancreas: Normal size and echogenicity. Right kidney: 10.1 cm in length. Normal size and echogenicity. No hydronephrosis or mass. Aorta and IVC: Unremarkable abdominal aorta and IVC. No ascites. IMPRESSION: 1. Abnormal gallbladder. There are a few stones within the gallbladder but there is also increased so ft tissue with no increased vascularity. This may be tumefactive sludge. This will need to be further evaluated to ensure resolution. If cholecystectomy is not performed follow-up gallbladder ultrasound is recommended in 6 to 8 weeks. 2. Hepatic steatosis and mild hepatic enlargement. 3. No bile duct dilatation.
[2023-04-06 08:03] LABS: Basophils # 0.1 10^3/uL (0.0-0.1); Basophils % 0.8 %; Eosinophils # 0.3 10^3/uL (0.0-0.8); Eosinophils % 2.6 %; Hematocrit 53.5 % (37-53); Lymphocytes # 2.1 10^3/uL (0.8-4.8); Lymphocytes % 21.3 %; Mean Corpuscular HGB Conc 32.9 g/dL (30-55); Mean Corpuscular Hemoglobin 29.9 pg (27-33); Mean Corpuscular Volume 90.8 fl (82-101); Mean Platelet Volume 9.7 fL (7.4-10.4); Monocytes # 0.9 10^3/uL (0.2-0.9); Monocytes % 9.5 %; Neutrophils # 6.32 10^3/uL (1.8-7.7); Neutrophils % 65.5 %; Nucleated Red Blood Cells % 0 %; Platelet Count 256 10^3/cmm (157-399); Red Blood Count 5.89 10^6/uL (3.85-5.65); Red Cell Distribution Width 12.7 % (12.1-15.1); White Blood Count 9.66 10^3/uL (3.29-11.43)
[2023-04-06 08:10] LABS: Add Urine Microscopic? NO; Charge for UA Resulting for Rev
[2023-04-06 08:22] LABS: Urine Appearance Clear (CLEAR); Urine Color Yellow (Yellow); pH Urine 5 (5-7)
[2023-04-06 08:23] LABS: Alanine Aminotransferase 21 U/L (0-41); Albumin Level 4.5 g/dL (3.5-5.2); Alkaline Phosphatase 62 U/L (40-130); Anion Gap 14.9 (5-19); Aspartate Amino Transferase 14 U/L (0-40); Blood Urea Nitrogen 18 mg/dL (6-20); Calcium 9.8 mg/dL (8.5-10.5); Carbon Dioxide 25 mmol/L (22-29); Chloride 101 mmol/L (98-107); Globulin 2.8 g/dL (1.3-4.6); Glomerular Filtration Rate 58.4 mL/min (90-130); Glucose 249 mg/dL (65-115); Lipase 52 U/L (13-60); Osmolality Calculated 292 mOsm/kg (285-295); Potassium 4.9 mmol/L (3.5-5.1); Sodium 136 mmol/L (136-145); Total Bilirubin 0.5 mg/dL (0.15-1.2); Total Protein 7.3 g/dL (6.6-8.7)
[2023-04-06 08:23] LABS: Bilirubin Urine Neg (Negative); Blood Urine Neg (Negative); Glucose Urine UA Trace (Normal); Ketones Urine Negative (Negative); Leukocyte Esterase Urine Negative (Negative); Nitrate Urine Negative (Negative); Protein Urine Neg (Negative); Urobilinogen Urine Neg (Negative)
[2023-04-06 08:24] LABS: Troponin(5th) Baseline 33 ng/L (0-15)
[2023-04-06 09:00] VITALS: BP 120/84; PULSE 87; RESP 16; O2SAT 97
--- NOTE | 2023-04-06 10:01 | ECG_ITS ---
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 Measurements Intervals Johnson Rate: 60 P: -5 GA: 232 QRS: -42 QRSD: 189 T: 125 QT: 465 QTc: 468 Interpretive Statements SINUS RHYTHM WITH FIRST DEGREE AV BLOCK POSSIBLE LEFT ATRIAL ENLARGEMENT [-0.1mV P-WAVE IN V1/V2] LEFT AXIS DEVIATION [QRS AXIS < -30] LEFT BUNDLE BRANCH BLOCK [120+ ms QRS DURATION, 80+ ms Q/S IN V1/V2, 85+ ms R IN I/aVL/V5/V6] LATERAL MYOCARDIAL INFARCTION , PROBABLY RECENT [40+ ms Q WAVE AND/OR ST/T ABNORMALITY IN I/aVL/V5/V6] ACUTE OK Compared to ECG 04/06/2023 07:36:58 No significant changes Electronically Signed On 04-06-2023 23:25:05 J2EE ENGINEER by Kadi Sales M.D. [id number]
[2023-04-06 10:08] LABS: Troponin 5 2HR 32.84 ng/L (0-15)
[2023-04-06 10:16] LABS: Troponin 5 2HR Delta -0.16 ABS# (0-10)
== END 2023-04-06 11:13 | disposition home or self-care (01) ==
PROVIDERS: Emergency Provider Family Medicine; PCP Family Medicine
DX: K80.20 Calculus of gallbladder without cholecystitis without obstruction (principal); Z79.82 Long term (current) use of aspirin; Z79.84 Long term (current) use of oral hypoglycemic drugs; Z87.891 Personal history of nicotine dependence; I25.10 Atherosclerotic heart disease of native coronary artery without angina pectoris; I11.0 Hypertensive heart disease with heart failure; I50.40 Unspecified combined systolic (congestive) and diastolic (congestive) heart failure; E11.9 Type 2 diabetes mellitus without complications; E78.5 Hyperlipidemia, unspecified
CPT/HCPCS: 36415; 76705; 80053; 81003; 83690; 84484; 85025; 93005; 99284

== ENCOUNTER 2025-04-05 06:21 | Emergency (ER) | payer SELFPAY ==
--- NOTE | 2025-04-05 06:28 | XR_ITS ---
WS: [id number] Exam: XR chest 1V portable [id number] Date/Time of Exam: 04/05/2025 6:56 AM Reason For Exam: sob Comparison 05/01/2020 Mild RIGHT perihilar infiltrate suspicious for pneumonia. Small LEFT basal pleural effusion. The heart is enlarged but unchanged in size. No pneumothorax. Status post CABG surgery. The mediastinum is normal in contour. Unremarkable bony elements. XR/XR chest 1V portable [id number] IMPRESSION: 1. Mild RIGHT perihilar infiltrate which may indicate developing pneumonia. 2. Small LEFT basal pleural effusion. Cardiomegaly unchanged.
--- OUTSIDE RECORDS SUMMARY | 2025-04-05 06:28 | XMS_ITS | Clinical Summary ---
Author Organization [facility] Address [address] [place]: Epic Prelude ADT [place] [address] Care Team Providers Care Activated Sludge Operator Name Role Phone Shae May Hunter LECHUGA Primary Care Provider Allergies No known active allergies Medications aspirin (YAMILET CHEWABLE) 81 mg Tablet, Chewable Take 81 mg by mouth daily. 11/06/19 20 Active lancetsIndications :Type 2 diabetes mellitus without complication, without long-term current use of insulin (CMS/HCC) Type II DM with senior living use of insulin Check blood sugars TID 100 Each 1 11/15/19 20 Active lisinopriL (PRINIVIL) 5 mg tablet TAKE 1 TABLET(5 MG) BY MOUTH DAILY 90 Tablet 3 12/03/19 21 Active allopurinoL (ZYLOPRIM) 100 mg tablet Take 1 Tablet (100 mg) by mouth daily. 90 Tablet 4 04/23/20 21 Active nitroglycerin (NITROSTAT) 0.4 mg Tablet, Sublingual Place 1 Tablet (0.4 mg) under tongue every 5 minutes as needed for Chest Pain. 25 Tablet 3 07/31/19 22 Active furosemide (LASIX) 40 mg tabletIndications: Ischemic dilated cardiomyopathy (CMS/HCC) 1 tab daily and take an extra tab daily PRN wt gain. 120 Tablet 3 09/24/19 22 Active carvediloL (COREG) 6.25 mg tablet TAKE 1 TABLET(6.25 MG) BY MOUTH TWICE DAILY 180 Tablet 3 12/16/19 22 Active isosorbide mononitrate (IMDUR) 30 mg Extended Release 24 hour tabletIndications: Acute diastolic congestive heart failure (CMS/HCC),Coronary artery disease Take 0.5 Tablets (15 mg) by mouth daily in the morning. Needs appointment for further refills 30 Tablet 12/28/19 22 Active Active Problems Problem Noted Date Diagnosed Date Chronic combined systolic and diastolic CHF, NYH A class 2 07/30/2021 Type 2 DM with stage 3 chronic kidney disease GF R 30-59 05/01/2020 Status post coronary artery bypass graft 020 Obesity (BMI 30.0-34.9) 04/22/2020 Cardiac LV ejection fraction 10-20% 02/27/2020 Overview (09/20/2020): Added automatically from request for surgery [id number] ASHD (arteriosclerotic heart disease) 10/19/2018 Acute hepatic failure 10/18/2018 Elevated liver function tests 10/18/2018 Acute hepatitis B 10/18/2018 Tobacco use 06/17/2015 Syncope and collapse 02/05/2013 Disorders of sacrum 09/29/2012 Ischemic cardiomyopathy 12/29/2011 Dyslipidemia 12/29/2011 Other and unspecified angina pectoris 12/23/2011 Diabetes mellitus 12/23/2011 Obstructive sleep apnea Resolved Problems Problem Noted Date Diagnosed Date Resolved Date Moderate protein-calorie malnutrition 10/21/2018 07/30/2021 CAD (coronary artery disease) 12/29/2011 06/21/2020 Overview (09/18/2020): 12/2011 - Coronary angiography for evaluation of ACS revealed: 1. The LVEDP is 19 mmHg. 2. Left ventricular systolic blood pressure 103. Aortic systolic blood pressure 97. No significant aortic stenosis. 3. Left ventricular ejection fraction is approximately 45 to 50% with global hypokinesis. There is no significant valvular regurgitation. CORONARY ANATOMY: 1. LEFT MAIN: Gives rise to a left anterior descending artery and left circumflex artery. There is no significant stenosis. 2. LEFT ANTERIOR DESCENDING ARTERY: The left anterior descending artery gives rise to a large first diagonal which has luminal irregularities and then a second diagonal which has 70% stenosis. After giving rise to the second diagonal there is 80% stenosis and then 90% stenosis further on in the mid vessel. The LAD tapers distally and the diagonal runs a parallel course actually feeding the apex. 3. The left circumflex has 20% stenosis mid vessel. There is a small first obtuse marginal branch which has luminal irregularities. 4. The right coronary artery is right dominant with luminal irregularities. Dr Crain proceeded with deployment of a 2.5 x 18 mm drug-eluting Resolute stent to the LAD followed by Kissing balloon angioplasty performed with the stent balloon in the LAD and the the diagonal branch. There was still residual stenosis in the proximal LAD of approximately 70% residual stenosis and this ran the course of the LAD to the apex.. A 2.5 x 12 mm Resolute stent was deployed to this area. 12/2012 - SE: Left ventricle: The cavity size was normal. Wall thickness was increased in a pattern of mild LVH. Systolic function was normal. The estimated ejection fraction was in the range of 55% to 65%. No diagnostic regional wall motion abnormality identified. - Right ventricle: The cavity size was normal. Systolic function was normal. Systolic pressure was not accurately estimated. Tricuspid valve: Mild regurgitation. Stress: Maximal heart rate during stress was 156bpm (86% of maximal predicted heart rate). The maximal predicted heart rate was 180bpm.The target heart rate was achieved. There was resting hypertension with a hypertensive response to stress. The rate-pressure product for the peak heart rate and blood pressure was 27272fq Hg/min. The patient experienced no chest pain during stress. Functional capacity was normal. Stress ECG conclusions: There were no stress arrhythmias or conduction abnormalities. The stress ECG was negative for ischemia. Anne scoring: exercise time of 8.38min; maximum ST deviation of 0.5mm; no angina; resulting score is 6. This score predicts a low risk of cardiac events. - Staged echo: There was no obvious echocardiographic evidence for stress-induced ischemia. Mildly reduced sensitivity due to reduced image quality. Contrast was used Nonspecific abnormal unspeci fied cardiovascular function study 12/23/2011 06/21/2020 Cardiomyopathy 12/23/2011 07/30/2021 Dyspnea on exertion 07/31/19 22 Immunizations Immunization Administration Dates Next Due (ADACEL/BOOSTRIX)(10 YR UP) TDAP VACCINE, 0.5ML, IM 10/23/2011 Influenza Seasonal Unspecified Formulation IM Family History Medical History Relation Name Comments Heart Disease Brother cardiomyopathy Heart Disease Father Other Mother brain aneursym Healthy Sister Relation Name Status Comments Brother Alive Father Alive Mother (Age 33) Calvinysm Sister Alive Social History Tobacco Use Types Packs/Day Years Used Date Smoking Tobacco: Former Cigarettes Q uit: 10/04/2018 Smokeless Tobacco: Current Last attempted to quit: 01/22/2013 Alcohol Use Standard Drinks/Week Comments Not Currently 0 (1 standard drink = 0.6 oz pur e alcohol) Sex and Gender Information Value Date Recorded Sex Assigned at Not on file Legal Sex Male 11:53 PM LINE DEPARTMENT SUPERVISOR Gender Identity Not on file Sexual Orientation Not on file Last Filed Vital Signs Vital Sign Reading Time Taken Comments Blood Pressure 110/70 07/30/2021 2:52 PM LINE DEPARTMENT SUPERVISOR Pulse 67 07/30/2021 2:52 PM LINE DEPARTMENT SUPERVISOR Temperature 36.2 C (97.1 F) 09/17/2020 8:34 AM CDT Respiratory Rate 18 04/26/2020 8:05 AM LINE DEPARTMENT SUPERVISOR Oxygen Saturation - - Inhaled Oxygen Concentration - - Weight 120.7 kg (266 lb) 07/30/2021 2:52 PM LINE DEPARTMENT SUPERVISOR Height 190.5 cm (6' 3 ) 07/30/2021 2:52 PM LINE DEPARTMENT SUPERVISOR Body Mass Index 33.25 07/30/2021 2:52 PM LINE DEPARTMENT SUPERVISOR Plan of Treatment Health Maintenance Due Date Last Done Comments DIABETES ANNUAL FOOT EXAM 1990 DIABETES ANNUAL RETINAL EXAM 1990 DIABETES MICROALBUMIN ANNUAL SCREEN 1990 HEPATITIS B VACCINES (1 of 3 - 19+ 3-dose series) 1991 COLORECTAL SCREENING 2017 Colorectal Cancer Screening 2017 FIT-DNA Q 3 years 2017 FIT/FOBT Q 1 year 2017 Flex Sig/CT Colonography Q 5 years 2017 DIABETES HBA1C Q 6 MONTHS 12/22/20202020, 06/24/2020, 04/02/2020, Additional history exists LDL CHOLESTEROL ANNUAL 05/01/2021 0, 09/23/2018, 09/21/2014 DTAP/TDAP/TD VACCINES (2 - T d or Tdap) 10/22/2021 10/23/2011 ZOSTER VACCINE (1 of 2) 2022 INFLUENZA VACCINE (#1) 2024 02/22/2012 Medical Devices Implanted Type Area Fruit And Vegetable Inspector Device Identifier Shelf Expiration Date Model / Serial / Lot Clip Ligating Horizon Lg Ti [id number] - [facility] [place] [id number] Implanted:Qty : 1 on 04/22/2020 by Dilan Cruz MD Clip N/A: Heart [employer]LE[employer]LEX- [employer] [id number] 11/12/2024 [id number] / / [id number] Procedures Procedure Name Priority Date/Time Associated Diagnosis Comments HEMOGLOBIN A1C Routine 06/24/2020 9:56 AM LINE DEPARTMENT SUPERVISOR LIPID PANEL Routine 05/01/2020 11:46 AM LINE DEPARTMENT SUPERVISOR from Last 3 Months or Most Recently Relevant to Health Maintenance Results * (ABNORMAL) HEMOGLOBIN A1C (06/24/2020 9:56 AM LINE DEPARTMENT SUPERVISOR) HEMOGLOBIN A1C 6.9(H) See Comment % 06/24/2020 9:48 PM LINE DEPARTMENT SUPERVISOR [facility] EST. AVG GLUCOSE, A1C 151 mg/dL 06/24/2020 9:48 PM LINE DEPARTMENT SUPERVISOR [facility] Blood Venipuncture / Unknown 06/24/2020 9:56 AM LINE DEPARTMENT SUPERVISOR 06/24/2020 8:34 PM LINE DEPARTMENT SUPERVISOR Narrative [facility] - 06/24/2020 9:48 PM LINE DEPARTMENT SUPERVISOR HGB A1C INTERPRETATION NORMAL: <5.7% PRE-DIABETES: 5.7 - 6.4% DIABETES: 6.5% OR GREATER Falsely low A1C measurements can occur when: 1. Anemia and/or hemolytic anemia is present. 2. Hemoglobin variants present. 3. Renal failure. 4. Transfusion of blood product in the last 120 days. We recommend ordering a fructosamine test([id number]) to more accurately assess glycemic status if any of the above conditions are present. Saida Guaman [facility] CHEMISTRY ORDERABLES Fin al Result [facility] CLIA# [id number] [place] [address] * (ABNORMAL) LIPID PANEL (05/01/2020 11:46 AM LINE DEPARTMENT SUPERVISOR) CHOLESTEROL 137 <200 mg/dL 05/01/2020 9:49 PM [facility] TRIGLYCERIDE 110 <150 mg/dL 05/01/2020 9:49 PM [facility] HDL 29(L) 40 - 59 mg/dL 05/01/2020 9:49 PM [facility] LDL CALCULATED 86 <100 mg/dL 05/01/2020 9:49 PM [facility] NON-HDL CHOLESTEROL 108 <130 mg/dL 05/01/2020 9:49 PM [facility] Blood Venipuncture / Unknown 05/01/2020 11:46 AM LINE DEPARTMENT SUPERVISOR 05/01/2020 8:50 PM LINE DEPARTMENT SUPERVISOR Narrative [facility] - 05/01/2020 9:49 PM LINE DEPARTMENT SUPERVISOR TOTAL CHOLESTEROL mg/dL Desirable <200 Borderline high 200-239 High >=240 TRIGLYCERIDES mg/dL Normal <150 Borderline high 150-199 High 200-499 Very high >=500 HDL CHOLESTEROL mg/dL Low <40 Normal 40-59 Desirable >=60 NON HDL CHOLESTEROL mg/dL Optimal <130 Near Optimal 130-159 Borderline High 160-189 Very High >=190 CALCULATED LDL mg/dL LDL <70, OPTIMAL if have Atherosclerotic cardiovascular disease (ASCVD) or intermediate or higher (>7.5%) 10 year risk of ASCVD including most adults with diabetes. LDL <100, Optimal in adult patients with low (<7.5%) 10 year ASCVD risk LDL 100-160, Suboptimal LDL >160, High LDL >190, Very high ATPIII Guidelines Reference Ranges for Lipid Panels (NCEP/AMA) . Saida Guaman [employer] CHEMISTRY ORDERABLES Fin al Result [facility] CLIA# [id number] [place] [address] from Last 3 Months or Most Recently Relevant to Health Maintenance Care Teams Activated Sludge Operator Relationship Specialty Start Date End Date Shae May DO [address] [place] [id number] PCP - General Family Practice 02/04/18
[2025-04-05 06:29] VITALS: BP 160/108; PULSE 70; TEMP 36.7; O2SAT 97; BMI 29.5
--- NOTE | 2025-04-05 06:37 | ECG_ITS ---
[employer] [facility] Test Date: 2025-04-05 Pat Name: Osman Muir Department: Room: Gender: Male Manager Environmental Services: : 1970 Requested By: Frida Vogel Order Number: [id number] Peralta MD: Darrell López M.D. Measurements Intervals Hiram Rate: 74 P: 62 SD: 227 QRS: 8 QRSD: 178 T: 53 QT: 444 QTc: 493 Interpretive Statements SINUS RHYTHM WITH FIRST DEGREE AV BLOCK POSSIBLE LEFT ATRIAL ENLARGEMENT [-0.1mV P-WAVE IN V1/V2] LEFT BUNDLE BRANCH BLOCK [120+ ms QRS DURATION, 80+ ms Q/S IN V1/V2, 85+ ms R IN I/aVL/V5/V6] LATERAL MYOCARDIAL INFARCTION , OF INDETERMINATE AGE [40+ ms Q WAVE AND/OR ST/T ABNORMALITY IN I/aVL/V5/V6] Compared to ECG 04/06/2023 09:55:31 Left-axis deviation no longer present Myocardial infarct finding still present Electronically Signed On 04-06-2025 13:13:10 [employer] GUIDE by Darrell López M.D. [email or web address] [id number]
--- NOTE | 2025-04-05 06:38 | W.ED.ABDPA2 ---
HPI - Abdominal Pain General: Chief Complaint: Abdominal Pain Stated Complaint: R side going to ABD Pain SOB N/V Time Seen by Provider: 04/05/25 06:32 Source: patient Mode of arrival: ambulatory Limitations: no limitations History of Present Illness: 54-year-old male states been having right upper quadrant pain over the last 3 to 4 days. States has been constant and rates his pain a 4 out of 10. States has had issues with his gallbladder in the past. Had some slight nausea and vomiting he denies any fevers. States he also has a history of congestive heart failure states he was previously on Lasix but is no longer on Lasix and over the last week to 2 weeks has had some dyspnea especially with lying down. Denies any chest pain Related Data Home Medications ?Medication ?Instructions ?Recorded ?Confirmed aspirin 81 mg tablet,delayed 81 mg PO QAM 04/06/23 04/06/23 release carvedilol 6.25 mg tablet 6.25 mg PO BID 04/06/23 04/06/23 furosemide 40 mg tablet 40 mg PO QAM 04/06/23 04/06/23 metformin 500 mg tablet 500 mg PO BID 04/06/23 04/06/23 Previous Rx's ?Medication ?Instructions ?Recorded amoxicillin 875 mg-potassium 1 tab PO BID #14 tabs 04/06/23 clavulanate 125 mg tablet amoxicillin 500 mg-potassium 1 tab PO BID #14 tabs 04/05/25 clavulanate 125 mg tablet (Augmentin) doxycycline hyclate 100 mg tablet 100 mg PO BID 7 days #14 tabs 04/05/25 furosemide 40 mg tablet (Lasix) 40 mg PO DAILY #30 tabs 04/05/25 Allergies Allergy/AdvReac Type Severity Reaction Status Date / Time No Known Allergies Allergy Verified 04/05/25 06:33 Review of Systems Resp: Reports: dyspnea GI: Reports: abdominal pain [facility] PFSH: Medical History (Updated 04/05/25 @ 09:09 by Frida Vogel MD) LV dysfunction Morbid obesity -BMI-31 kg/m2 Hyperuricemia Dyslipidemia -recent lipid panel noted -on statin now that CPK normalized Combined systolic and diastolic congestive heart failure -does not look clinically overloaded -had Echo done during last admission with EF=35% -would not continue IVF due to risk of fluid overload CAD (coronary artery disease) -as noted above -seems to have baseline HR in the 50-60 range; some readings of tachycardia in ED, which are likely not accurate Diabetes -newly diagnosed, last week and started on insulin -A1c-8.1 -Accuchecks, ISS, hypoglycemia precautions; so far has not needed any insulin Coronary artery disease PCI x3 Hypertension -initially hypotensive, currently normotensive Family History Other Hypertension Social History Smoking and tobacco/nicotine status: former use of tobacco/nicotine Quit status (tobacco/nicotine): has quit using Former quit date comment: Quit smoking 1 month ago because of shortness of breath and orthopnea Alcohol intake: never Substance/Drug Use: never Lives independently: Yes Housing: House 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 Physical Exam Const: COMMON NORMALS: no acute distress, patient oriented x3 and healthy appearing HENMT: COMMON NORMALS: normocephalic and atraumatic HEAD & SCALP: normocephalic and atraumatic Eye: COMMON NORMALS: conjunctivae normal CONJUNCTIVA: Yes conjunctivae normal Neck/C-Spine: COMMON NORMALS: full ROM and supple Chest: COMMONS NORMALS: normal inspection of the chest Resp: COMMON NORMALS: normal respiratory effort, No retractions, No use of accessory muscles and clear to auscultation bilaterally AUSCULTATION: clear to auscultation bilaterally Cardio: COMMON NORMALS: regular rate, regular rhythm and No murmurs present (Cardio) RATE: regular rate RHYTHM: regular rhythm GI: COMMON NORMALS: Normal to inspection, nondistended, normoactive bowel sounds present, Soft to palpation and no masses PALPATION: Yes Soft to palpation and Yes Tenderness to palpation present (GI) (mild ruq tend) Extremity: COMMON NORMALS: normal to inspection and full ROM Neuro: COMMON NORMALS: patient oriented x3, moves all extremities and no focal motor deficits Psych: COMMON NORMALS: mental status grossly normal, Normal thought process present and cooperative THOUGHT PROCESS: Normal thought process present Skin: COMMON NORMALS: no rashes or lesions noted and no wounds GENERAL SKIN EXAM: no rashes or lesions noted Course Vital Signs: Vital signs: Vital Signs Temperature 98.1 F 04/05/25 06:29 Pulse Rate 68 04/05/25 09:21 Respiratory Rate 25 H 04/05/25 08:09 Blood Pressure 146/107 04/05/25 09:21 Pulse Oximetry 98 04/05/25 09:21 Oxygen Delivery Me thod Room Air 04/05/25 08:09 MDM - Abdominal Pain Medical Decision Making Patient presents here with abdominal pain along with some mild dyspnea. Differential includes cholecystitis, bowel obstruction, pneumonia, CHF. Patient's abdominal pain here is improved discharge his exam is benign his white count here is normal along with normal bilirubin and liver enzymes. Ultrasound of his gallbladder did show thickening gallbladder likely has some chronic cholecystitis. I have spoke to general surgeon Dr. schreiber who agrees and is going to see patient outpatient and will start on Augmentin and doxycycline. I did interpret his chest x-ray it does show a mild right pneumonia he has not been hypoxic here we will start him on antibiotics and restart his Lasix as well. I interpret his EKG showed normal sinus rhythm heart rate [address] elevation QRS 178 QTc 471. I did review all of his findings with him and offered him admission for his pneumonia along with the abdominal pain for IV antibiotics he states he did feel much improved and would like to do outpatient treatment first and follow-up with surgeon outpatient. I informed if he has any worsening symptoms he is to return he understands agrees to plan. Medical Records I reviewed the patient's medical records. Lab Data I reviewed the patient's lab results. 04/05/25 06:38 04/05/25 08:07 Labs/Radiology: Radiology Impressions Chest X-Ray 04/05/25 06:28 IMPRESSION: 1. Mild RIGHT perihilar infiltrate which may indicate developing pneumonia. 2. Small LEFT basal pleural effusion. Cardiomegaly unchanged. Gallbladder Ultrasound 04/05/25 07:10 IMPRESSION: 1. Abnormal gallbladder. There is diffuse gallbladder wall thickening with a 7.7 mm nodule adherent to the gallbladder wall. On one image only there is a small amount of shadowing from this nodule. This may be a polyp with calcification, tumefactive sludge or mass. Recommend surgical evaluation for possible cholecystectomy. 2. Heterogeneous liver. Consider hepatic steatosis with hepatocellular disease. 3. Dilated IVC. Consider RIGHT heart failure, liver disease and pulmonary hypertension as etiologies. 4. Nonvisualization of the pancreas. Laboratory Results WBC 7.86 10^3/uL (3.29-11.43) 04/05/25 06:38 RBC 5.30 10^6/uL (3.85-5.65) 04/05/25 06:38 Hgb 15.80 g/dL (11.27-16.99) 04/05/25 06:38 Hct 49.1 % (37-53) 04/05/25 06:38 MCV 92.6 fl (82-101) 04/05/25 06:38 MCH 29.8 pg (27-33) 04/05/25 06:38 MCHC 32.2 g/dL (30-55) 04/05/25 06:38 RDW 14.0 % (12.1-15.1) 04/05/25 06:38 Plt Count 220 10^3/cmm (157-399) 04/05/25 06:38 MPV 10.3 fL (7.4-10.4) 04/05/25 06:38 Neut % (Auto) 59.0 % 04/05/25 06:38 Lymph % (Auto) 27.0 % 04/05/25 06:38 Bonner % (Auto) 10.3 % 04/05/25 06:38 Eos % (Auto) 2.8 % 04/05/25 06:38 Baso % (Auto) 0.6 % 04/05/25 06:38 Neut # (Auto) 4.64 10^3/uL (1.8-7.7) 04/05/25 06:38 Lymph # (Auto) 2.1 10^3/uL (0.8-4.8) 04/05/25 06:38 Bonner # (Auto) 0.8 10^3/uL (0.2-0.9) 04/05/25 06:38 Eos # (Auto) 0.2 10^3/uL (0.0-0.8) 04/05/25 06:38 Baso # (Auto) 0.1 10^3/uL (0.0-0.1) 04/05/25 06:38 Nucleated RBC % (auto) 0 % 04/05/25 06:38 Nucleated RBCs # 0.0 /100WBC 04/05/25 06:38 Sodium 141 mmol/L (136-145) 04/05/25 06:38 Potassium 4.9 mmol/L (3.5-5.1) 04/05/25 08:07 Chloride 107 mmol/L (98-107) 04/05/25 06:38 Carbon Dioxide 23 mmol/L (22-29) 04/05/25 06:38 Anion Gap 17.0 (5-19) 04/05/25 06:38 BUN 14 mg/dL (6-20) 04/05/25 06:38 Creatinine 1.0 mg/dL (0.7-1.2) 04/05/25 06:38 GFR Calculation 78.5 mL/min (90-130) L 04/05/25 06:38 Glucose 187 mg/dL (65-115) H 04/05/25 06:38 Calculated Osmolality 297 mOsm/kg (285-295) H 04/05/25 06:38 Calcium 8.8 mg/dL (8.5-10.5) 04/05/25 06:38 Total Bilirubin 0.5 mg/dL (0.15-1.2) 04/05/25 06:38 AST 30 U/L (0-40) 04/05/25 06:38 ALT 42 U/L (0-41) H 04/05/25 06:38 Alkaline Phosphatase 62 U/L (40-130) 04/05/25 06:38 NT-Pro-B Natriuret Pep 5730 pg/mL (0-125) H 04/05/25 06:38 Total Protein 7.0 g/dL (6.6-8.7) 04/05/25 06:38 Albumin 4.4 g/dL (3.5-5.2) 04/05/25 06:38 Globulin 2.6 g/dL (1.3-4.6) 04/05/25 06:38 Lipase 17 U/L (13-60) 04/05/25 06:38 Urine Color Dark yellow (Yellow) A 04/05/25 07:06 Urine Appearance Clear (CLEAR) 04/05/25 07:06 Urine pH 5.0 (5-7) 04/05/25 07:06 Ur Specific [place] 1.036 (1.005-1.030) H 04/05/25 07:06 Urine Protein 3+ (Negative) A 04/05/25 07:06 Urine Glucose (UA) Trace (Normal) H 04/05/25 07:06 Urine Ketones Trace (Negative) 04/05/25 07:06 Urine Blood Negative (Negative) 04/05/25 07:06 Urine Nitrate Negative (Negative) 04/05/25 07:06 Urine Bilirubin Negative (Negative) 04/05/25 07:06 Urine Urobilinogen 1.0 mg/dL (Negative) 04/05/25 07:06 Ur Leukocyte Esterase Negative (Negative) 04/05/25 07:06 Urine RBC 0-2 /hpf (0-2) 04/05/25 07:06 Urine WBC 0-5 /hpf (0-5) 04/05/25 07:06 Ur Squamous Epith Cells 0-5 /hpf (0-5) 04/05/25 07:06 Amorphous Sediment Not Reportable 04/05/25 07:06 Urine Bacteria None seen /hpf (NONE) 04/05/25 07:06 Hyaline Casts 1.21 /lpf 04/05/25 07:06 All radiology interpretation(s) finalized by discharge EKG Data EKG 1: I personally reviewed and interpreted this EKG as follows: EKG interpretation date: 04/05/25 EKG interpretation time: 06:37 Interpretation: nsr hr [address] elevation qrs 178 qtc 471 Discharge Plan Discharge Patient Disposition: Home Clinical Impression: Biliary colic, Pneumonia Condition: Stable Prescriptions: New amoxicillin-pot clavulanate [Augmentin] 500-125 mg tablet 1 tab PO BID Qty: 14 0RF doxycycline hyclate 100 mg tablet 100 mg PO BID 7 Days Qty: 14 0RF furosemide [Lasix] 40 mg tablet 40 mg PO DAILY Qty: 30 0RF No Action furosemide 40 mg tablet 40 mg PO QAM metformin 500 mg tablet 500 mg PO BID carvedilol 6.25 mg tablet 6.25 mg PO BID aspirin 81 mg tablet,delayed release (DR/EC) 81 mg PO QAM amoxicillin-pot clavulanate 875-125 mg tablet 1 tab PO BID Qty: 14 0RF Discharge Orders: Discharge ED (Routine); Ordered 04/05/25 Ordered By: Frida Vogel Referrals: Osman Schreiber MD [Physician, General Surgery] - 4-7 days Nirmal Neville [Primary Care Provider, Family Practice] Discharge Diet: Advance as tolerated Discharge Activity: Resume usual activity Patient Instructions: Abdominal Pain (ED), Pneumonia (ED) Print Language: Telugu Coding Level of Care Code ED [employer] Worker Supervisor for Kaelyn Guevara
[2025-04-05 06:43] VITALS: BP 160/108; PULSE 67; O2SAT 95
[2025-04-05 06:46] LABS: Hematocrit 49.1 % (37-53); Hemoglobin 15.80 g/dL (11.27-16.99); Mean Corpuscular HGB Conc 32.2 g/dL (30-55); Mean Corpuscular Hemoglobin 29.8 pg (27-33); Mean Corpuscular Volume 92.6 fl (82-101); Nucleated Red Blood Cells % 0 %; Platelet Count 220 10^3/cmm (157-399); Red Blood Count 5.30 10^6/uL (3.85-5.65); White Blood Count 7.86 10^3/uL (3.29-11.43)
--- NOTE | 2025-04-05 07:10 | US_ITS ---
WS: [id number] RIGHT UPPER QUADRANT ULTRASOUND HISTORY: ruq pain COMPARISON: Ultrasound 04/06/2023 Liver: 17.7 cm in length. Liver is slightly enlarged and very heterogeneous. Areas of decreased and increased attenuation throughout the liver. No mass is identified. Portal vein is patent. Mildly undulating flow within the portal vein. Portal Vein: Patent with undulating flow. Gallbladder: Abnormal gallbladder. There is diffuse gallbladder wall thickening measuring up to 9 mm. No pericholecystic fluid. There is a nonshadowing nodule in the gallbladder measuring 7.7 mm. On one image only there is some shadowing from this nodule. This may be a small polyp or wall calcification. CBD: 0.5 cm Pancreas: Obscured by bowel gas. Right kidney: 11.9 cm in length. Normal size and echogenicity. No hydronephrosis or mass. Aorta and IVC: Normal size aorta. IVC is dilated to 2.5 cm. No ascites. US/US gall bladder [id number] IMPRESSION: 1. Abnormal gallbladder. There is diffuse gallbladder wall thickening with a 7 .7 mm nodule adherent to the gallbladder wall. On one image only there is a sma ll amount of shadowing from this nodule. This may be a polyp with calcification , tumefactive sludge or mass. Recommend surgical evaluation for possible cholec ystectomy. 2. Heterogeneous liver. Consider hepatic steatosis with hepatocellular disease . 3. Dilated IVC. Consider RIGHT heart failure, liver disease and pulmonary hype rtension as etiologies. 4. Nonvisualization of the pancreas.
[2025-04-05 07:11] LABS: Alanine Aminotransferase 42 U/L (0-41); Albumin Level 4.4 g/dL (3.5-5.2); Alkaline Phosphatase 62 U/L (40-130); Anion Gap 17.0 (5-19); Aspartate Amino Transferase 30 U/L (0-40); Blood Urea Nitrogen 14 mg/dL (6-20); Calcium 8.8 mg/dL (8.5-10.5); Carbon Dioxide 23 mmol/L (22-29); Chloride 107 mmol/L (98-107); Globulin 2.6 g/dL (1.3-4.6); Glucose 187 mg/dL (65-115); Lipase 17 U/L (13-60); NT Pro B Type Natriuretic Pept 5730 pg/mL (0-125); Osmolality Calculated 297 mOsm/kg (285-295); Potassium 6.0 mmol/L (3.5-5.1); Sodium 141 mmol/L (136-145); Total Protein 7.0 g/dL (6.6-8.7)
[2025-04-05] MEDS: FUROsemide 10 mg/mL SDV 10mL 60 MG IVP (07:19)
[2025-04-05 07:21] VITALS: BP 162/100; PULSE 76; RESP 17; O2SAT 98
[2025-04-05 07:42] LABS: Glucose Urine UA Trace (Normal); Nitrate Urine Negative (Negative)
[2025-04-05 07:45] LABS: Add Urine Microscopic? YES
[2025-04-05 07:53] LABS: Specific Gravity, Urine 1.036 (1.005-1.030)
[2025-04-05 08:09] VITALS: BP 149/104; PULSE 74; RESP 25; O2SAT 97
[2025-04-05 08:31] LABS: Potassium 4.9 mmol/L (3.5-5.1)
[2025-04-05 09:21] VITALS: BP 146/107; PULSE 68; O2SAT 98
--- NOTE | 2025-04-05 10:24 | DCPLANNER ---
messaged gen surg for er f/u
== END 2025-04-05 09:28 | disposition home or self-care (01) ==
PROVIDERS: Emergency Provider Emergency Medicine; PCP Family Medicine
DX: K80.50 Calculus of bile duct without cholangitis or cholecystitis without obstruction (principal); J18.9 Pneumonia, unspecified organism; Z79.84 Long term (current) use of oral hypoglycemic drugs; Z79.82 Long term (current) use of aspirin; Z87.891 Personal history of nicotine dependence; I25.10 Atherosclerotic heart disease of native coronary artery without angina pectoris; E78.5 Hyperlipidemia, unspecified; E11.9 Type 2 diabetes mellitus without complications; I11.0 Hypertensive heart disease with heart failure; I50.40 Unspecified combined systolic (congestive) and diastolic (congestive) heart failure
CPT/HCPCS: 71045; 76705; 80053; 81001; 83690; 83880; 84132; 85025; 93005; 96374; 99285; J1938; J9999